=== PATIENT | male | born 1960 | race Caucasian/White ===

== ENCOUNTER 2023-03-20 10:53 | Emergency (ER) | payer BC, SELFPAY ==
[2023-03-20 10:56] VITALS: BP 163/66
--- NOTE | 2023-03-20 11:20 | EDRN ---
Dima Hernandez PA in to see pt at this time.
--- NOTE | 2023-03-20 11:20 | ED.GENMED ---
History of Present Illness
General
Chief Complaint: Musculo-Skeletal Complaint
Time Seen by Provider: 03/20/23 11:12
Travel History
Have you had any contact with someone who has COVID-19?: No
Do you have any symptoms of coronavirus? Fever > 100 degrees, chills, cough, shortness of breath, sore throat, loss of taste or smell, muscle aches, or headache?: No
History of Present Illness
History of Present Illness:
62-year-old male presents to the emergency department for evaluation of left foot injury. He dropped a steel table in the foot last night. He is able to bear weight with pain. Large amount of bruising and swelling to the midfoot. Denies any
distal paresthesias or open wounds
Review of Systems
Review of Systems
Allergies reviewed?: Yes
All Other Systems: ROS reviewed and negative except as documented in HPI and ROS
Phy Exam
Physical Exam
Physical Exam:
GEN: Well appearing, NAD, WDWN
HEENT: Oral mucosa moist, no scleral icterus
Cardiac: Regular rate
Lung: No respiratory distress, no tachypnea
MSK: Diffuse ecchymosis and swelling to the left midfoot focal to the first metatarsal, no open wounds
Skin: Good color, no pallor or jaundice, no rashes
Neuro: AO x3, moves all extremities freely
Psych: Calm, cooperative
Course
Orders/Labs/Results
Orders:
Orders
03/20/23 10:55
Foot, Left 3 View [CR Foot - Left Min 3 Views] Urgent
Comment:
Reason For Exam: pain
03/20/23 11:20
Ortho Boot Left- Treatment ONCE
Short or tall?: Short
Vital Signs
Initial and Last Documented VS:
Initial Vital Signs
Temp Pulse Resp BP Pulse Ox
98.7 F 58 18 163/66 97
03/20/23 10:56 03/20/23 10:56 03/20/23 10:56 03/20/23 10:56 03/20/23 10:56
Last Documented Vital Signs
Temp Pulse Resp BP Pulse Ox
98.7 F 58 16 160/65 99
03/20/23 10:56 03/20/23 11:25 03/20/23 11:25 03/20/23 11:25 03/20/23 11:25
MDM/Problems Addressed
MDM/Problems Addressed:
X-rays of the left foot independently interpreted by me show a nondisplaced midshaft fracture of the left first metatarsal. Patient will be placed in an orthopedic boot, weightbearing as tolerated, outpatient orthopedic follow-up recommended
*Critical Care Note
Total Time (30-74mins, 75-104mins- exclusive of procedures): Not Applicable
ED Attending Note
-
Portions of this chart may have been created with voice recognition software.� Occasional wrong word or��sound alike� substitutions may have occurred due to the inherent limitations of voice recognition software.
Discharge Plan
Departure
Patient Disposition: Home (Routine Discharge)
Date of Disposition: 03/20/23
Time of Disposition: 11:22
Patient with high blood pressure during this ER visit?: Yes
Discharge Problem:
Closed nondisplaced fracture of first left metatarsal bone
Instructions: Foot Fracture (DC)
Referrals:
Fantasma Scruggs DPM [Active] -
Activity Restrictions/Additional Instructions:
Elevate and ice often
Interventions
Interventions:
*Risk Screen - Suicide Last Done: 03/20/23 10:56
*General Assessment Last Done: 03/20/23 10:56
*Neglect/Abuse Screening Last Done: 03/20/23 10:56
ED- Fall Risk Assessment Last Done: 03/20/23 11:37
*ED COVID-19 Vaccine History Last Done: 03/20/23 10:56
*Nursing Disposition Last Done: 03/20/23 11:38
ED-Musculoskeletal Assessment Last Done: 03/20/23 11:23
Discharge Date and Time
Discharge Date/Time: 03/20/23 11:39
[2023-03-20 11:23] VITALS: BMI 27.5
[2023-03-20 11:25] VITALS: BP 160/65
== END 2023-03-20 11:39 | disposition home or self-care (01) ==
LOC: EMR 10:53
PROVIDERS: EMERGENCY PHYSICIAN Emergency Medicine; FAMILY PHYSICIAN Nurse Practitioner
DX: S92.315A Nondisplaced fracture of first metatarsal bone, left foot, initial encounter for closed fracture (principal); W22.8XXA Striking against or struck by other objects, initial encounter
CPT/HCPCS: 99283; 73630

== ENCOUNTER → 2023-05-04 07:25 | Outpatient (REF) | payer BC, SELFPAY | LOC: HWRAD 07:25 | PROVIDERS: ATTENDING PHYSICIAN Physician Assistant Surgical; FAMILY PHYSICIAN Nurse Practitioner | DX: M79.662 Pain in left lower leg (principal) | CPT/HCPCS: 73700 ==

== ENCOUNTER 2024-01-24 09:55 | Day surgery (SDC) | payer BC, SELFPAY ==
[2024-01-24] VITALS (17 sets, daily range): BP systolic 107–155; BP diastolic 55–94
[2024-01-24 10:33] LABS: Hematocrit 40.8 % (39.0-52.0); Hemoglobin 14.3 g/dL (13.0-18.0); Mean Corpuscular Hgb 31.3 pg (27.0-31.0); Mean Corpuscular Volume 89.3 fL (80.0-94.0); Mean Platelet Volume 9.4 fL (7.4-10.4); Platelet Count 274 10^3/uL (130-400); Red Blood Cell Count 4.57 10^6/uL (4.70-6.10); Red Cell Dist. Width 12.5 % (11.5-14.5); White Blood Cell Count 8.7 10^3/uL (4.8-10.8)
[2024-01-24 10:47] LABS: ALT (SGPT) 34 U/L (0-50); AST (SGOT) 32 U/L (17-59); Albumin 4.4 g/dl (3.5-5.0); Alkaline Phosphatase 81 U/L (38-126); Blood Urea Nitrogen 12 mg/dl (9-20); Calcium 9.3 mg/dl (8.4-10.2); Carbon Dioxide 28 mmol/L (22-30); Chloride 104 mmol/L (98-107); Glucose 194 mg/dl (70-99); Potassium 4.8 mmol/L (3.5-5.1); Sodium 141 mmol/L (135-145); Total Bilirubin 0.9 mg/dl (0.2-1.3); Total Protein 7.2 g/dl (6.3-8.2); eGFR > 60.00
--- NOTE | 2024-01-24 12:31 | ITS.CL.CATH ---
Blending Tank Tender - Catheterization
Cardiac Catheterization
Procedure Report:
LEFT HEART CATHETERIZATION
Date of Procedure: January 24, 2024
Referring: Stan Kirkland
PROCEDURES:
1. Left heart catheterization, coronary angiogram.
2. Ultrasound-guided access
INDICATION: Twin is a 63-year-old gentleman with past medical history of hypertension, hyperlipidemia, type 2 diabetes mellitus, on insulin, prior inferior DE with RCA PCI with subsequent ischemic cardiomyopathy, recovered on most recent
echocardiogram with LVEF of 53% in 2022 who is being referred for a left heart catheterization for ongoing exertional chest discomfort despite optimization of medical therapy to rule out obstructive CAD.
ACCESS: Right radial artery, 6 Fr sheath, under ultrasound guidance
HEMODYNAMICS : (mmHg)
AO (s/d) : 126/50
LV (s/d) : 126/10
LVEDP : 25
CORONARY FINDINGS
DOMINANCE: Right
LEFT MAIN: The left main artery is a large-caliber vessel which gives rise to the left anterior descending artery and the left circumflex artery. There is minimal luminal irregularities.
LEFT ANTERIOR DESCENDING: The left anterior descending artery is a large-caliber vessel which gives rise to 2 major diagonal branches as it courses to the anterior interventricular groove and wraps around the apex. There is a tubular up to 80%
stenosis in the proximal LAD with diffuse up to 70 to 80% stenosis in the mid to distal LAD just distal to the takeoff of the second diagonal branch. There are [id number] collaterals noted.
CIRCUMFLEX: The left circumflex artery is a diminutive vessel which gives off 1 small to medium caliber OM with mild to moderate diffuse atherosclerotic plaque.
RIGHT CORONARY ARTERY: The right coronary artery is a medium to large caliber, dominant vessel with 100% chronic total occlusion in the midportion with [id number] collaterals.
SEDATION: 30 minutes of procedural sedation was utilized. An independent medical doctor md was present to assist with and help manage the patient's level of consciousness and physiologic status.
RADIATION SUMMARY: Fluoro Time (min): 2.9, Dose (mGy): 414.45, DAP (Gy.cm2) : 25.89
Closure Device: Vascular band over right radial artery, 10 cc of air
CONCLUSIONS
1. Significant two-vessel coronary artery disease involving the LAD and dominant right coronary artery.
2. Elevated LVEDP at 25 mmHg[address]
RECOMM[address] surgery consult for consideration of coronary artery bypass grafting to the LAD and RPDA +/- RPL
2. Wean radial band per protocol.
3. Aggressive management of cardiovascular risk factors.
4. Full echocardiogram to assess biventricular function and rule out any significant valvular abnormalities given prior echo was more than 1 year ago.
5. Eventual referral for outpatient cardiac rehab.
Copy to: Stan Kirkland
Mahsa Bates MD, FACC, [facility]
[2024-01-24] MEDS: LASIX 20 MG IV (16:08)
== END 2024-01-24 17:56 | disposition home or self-care (01) ==
LOC: CATH 09:55
PROVIDERS: ATTENDING PHYSICIAN Internal Medicine Interventional Cardiology; CONSULT PHYSICIAN Thoracic Surgery (Cardiothoracic Vascular Surgery); FAMILY PHYSICIAN Nurse Practitioner; OTHER PHYSICIAN Internal Medicine Cardiovascular Disease
DX: I25.10 Atherosclerotic heart disease of native coronary artery without angina pectoris (principal); R07.89 Other chest pain; I25.5 Ischemic cardiomyopathy; I10 Essential (primary) hypertension; E78.5 Hyperlipidemia, unspecified; E11.9 Type 2 diabetes mellitus without complications; I25.2 Old myocardial infarction; Z95.5 Presence of coronary angioplasty implant and graft; Z79.4 Long term (current) use of insulin; Z79.82 Long term (current) use of aspirin
CPT/HCPCS: 80053; 85027; 93306; 93458; C1894; Q9967

== ENCOUNTER 2024-02-09 19:46 | Inpatient (IN) | payer BC, SELFPAY ==
[2024-02-09] VITALS (11 sets, daily range): BP systolic 119–162; BP diastolic 42–108; BMI 27.3
[2024-02-09 13:42] LABS: % Basophils 0.5 % (0-2); % Eosinophils 1.5 % (0-6); % Immature Granulocytes 0.7 % (0-0.5); % Lymphocytes 10.1 % (20.5-51.1); % Neutrophils 77.2 % (42.2-75.2); Absolute Basophils 0.1 10^3/uL (0-0.2); Absolute Eosinophils 0.2 10^3/uL (0-0.7); Absolute Immature Granulocytes 0.1 10^3/uL (0-0.05); Absolute Lymphocytes 1.3 10^3/uL (1.2-3.4); Absolute Monocytes 1.3 10^3/uL (0.1-0.6); Absolute Neutrophils 9.9 10^3/uL (1.4-6.5); Hematocrit 41.5 % (39.0-52.0); Hemoglobin 13.8 g/dL (13.0-18.0); Mean Corp Hgb Conc. 33.3 g/dL (33.0-37.0); Mean Corpuscular Hgb 30.7 pg (27.0-31.0); Mean Corpuscular Volume 92.4 fL (80.0-94.0); Mean Platelet Volume 9.6 fL (7.4-10.4); Nucleated Red Blood Cells % 0 % (-); Platelet Count 332 10^3/uL (130-400); Red Blood Cell Count 4.49 10^6/uL (4.70-6.10); Red Cell Dist. Width 12.3 % (11.5-14.5); White Blood Cell Count 12.9 10^3/uL (4.8-10.8)
[2024-02-09 13:55] LABS: ALT (SGPT) 28 U/L (0-50); AST (SGOT) 26 U/L (17-59); Albumin 3.9 g/dl (3.5-5.0); Alkaline Phosphatase 129 U/L (38-126); Blood Urea Nitrogen 12 mg/dl (9-20); Calcium 8.7 mg/dl (8.4-10.2); Carbon Dioxide 30 mmol/L (22-30); Chloride 99 mmol/L (98-107); Glucose 177 mg/dl (70-99); Potassium 4.2 mmol/L (3.5-5.1); Sodium 137 mmol/L (135-145); Total Bilirubin 0.9 mg/dl (0.2-1.3); Total Protein 6.9 g/dl (6.3-8.2); eGFR > 60.00
[2024-02-09 14:09] LABS: Troponin I 0.102 ng/ml
[2024-02-09 14:39] LABS: COVID-19 Antigen Negative (Negative)
--- NOTE | 2024-02-09 15:22 | ED.GENMED ---
History of Present Illness
General
Chief Complaint: Cold/Flu/URI Symptoms
Source: patient and spouse
Time Seen by Provider: 02/09/24 15:07
History of Present Illness
History of Present Illness:
63-year-old male with past medical history of coronary artery disease, hypertension, hyperlipidemia, insulin-dependent diabetes presenting to the emergency department for evaluation of a persistent cough that started a little over 1 week ago
initially accompanied with some nasal congestion which is now resolved and accompanied with continued fatigue. Patient went to his primary care provider on Monday where he was tested for COVID and flu which were both negative and was told he
likely had a viral infection. Patient notes persistent cough which is why he presented to the ER today. Earlier today patient did have a little bit of chest discomfort but equates this with getting upsetting news in the mail. He states that the
symptoms only lasted for a few minutes and then resolved. He denies any exertional dyspnea, orthopnea, lower extremity edema, hemoptysis, pleurisy, fevers, chills, rigors, abdominal pain, nausea, vomiting. Of note, patient is scheduled to undergo
CABG this coming February 18. He reports good compliance with medication and notes that he did take his aspirin this morning.
Past History
Past History
ED Past Medical History: CAD, HTN, Hypercholesterolemia, IDDM and [place]
ED Past Surgical History: Appendectomy and Orthopedic
Social History
Tobacco: Non-smoker
Alcohol: Occasional
Drug: None
Personal:
Living: with family
Review of Systems
Review of Systems
All Other Systems: ROS reviewed and negative except as documented in HPI and ROS
Phy Exam
Physical Exam
Physical Exam:
GENERAL: Alert , in no apparent distress, Intermittent nonproductive cough noted
HEAD: NCAT
EYE: clear conjunctiva
NECK: Supple
ENT: o/p clr, mmm.
CARDIAC: Regular rate and rhythm, faint systolic murmur most pronounced at the second left intercostal space.
LUNGS: Slightly diminished lung sound left base, no acute respiratory distress, no wheezes/rales/rhonchi
ABDOMEN: Soft, without focal tenderness, no r/g, no cvat
NEUROLOGICAL: Alert and oriented
SKIN: Warm and dry, skin intact.
MUSCULOSKELETAL: No edema, well perfused.
PSYCH: Normal and appropriate interaction.
Scores
Heart Failure Risk
Heart Failure Risk Score: Not Applicable
Heart Score for Chest Pain Patients
STEMI patient?: Not applicable
Withdrawal Assessment of Alcohol
Withdrawal Assessment Completed?: Not applicable
Course
Orders/Labs/Results
Orders:
Orders
02/09/24 13:12
Electrocardiogram (*1) Urgent
Reason for Study: Chest Pain
EKG- Treatment ONCE
02/09/24 13:13
Chest [CR Chest - 2 Views ] Urgent
Comment:
Reason For Exam: cough, sob
02/09/24 13:30
COVID-19 Antigen Urgent
Source: Nasal Swab
Complete Blood Count/With Diff Urgent
Comprehensive Metabolic Panel Urgent
Troponin I Urgent
Influenza A+B Rapid Molecular Urgent
LORELEI Source: Nasal Swab
Specimen Description:
02/09/24 15:20
CT Chest Pe Study Urgent
Comment:
Reason For Exam: elevated trop, cough, known CAD
Aspirin Chewable [Low Strength Aspirin] 243 mg PO NOW STA
02/09/24 15:26
NT-proBNP Urgent
Troponin I Urgent
02/09/24 17:11
CefTRIAXone [Rocephin] 1,000 mg IV NOW STA
Doxycycline [Vibramycin] 100 mg PO NOW STA
Abnormal Lab Results
02/09/24 02/09/24
13:30 15:26
WBC 12.9 H 10^3/uL
(4.8-10.8)
RBC 4.49 L 10^6/uL
(4.70-6.10)
Abs Immat Gran (auto) 0.1 H 10^3/uL
(0-0.05)
Absolute Neuts (auto) 9.9 H 10^3/uL
(1.4-6.5)
Absolute Monos (auto) 1.3 H 10^3/uL
(0.1-0.6)
Immature Gran % 0.7 H %
(0-0.5)
Neutrophils % 77.2 H %
(42.2-75.2)
Lymphocytes % 10.1 L %
(20.5-51.1)
Monocytes % 10.0 H %
(1.7-9.3)
Glucose 177 H mg/dl
(70-99)
Alkaline Phosphatase 129 H U/L
(38-126)
Troponin I 0.102 H* ng/ml 0.161 H* D ng/ml
02/09/24 13:30
02/09/24 13:30
Vital Signs
Initial and Last Documented VS:
Initial Vital Signs
Temp Pulse Resp Pulse Ox
98.1 F 61 18 97
02/09/24 13:09 02/09/24 13:09 02/09/24 13:09 02/09/24 13:09
Last Documented Vital Signs
Temp Pulse Resp BP Pulse Ox
98.1 F 80 20 155/64 97
02/09/24 13:09 02/09/24 17:15 02/09/24 17:15 02/09/24 17:07 02/09/24 17:15
MDM/Problems Addressed
Differential Diagnosis Includes:
covid, flu, pneumonia, PE, CHF, viral syndrome, myocarditis
MDM/Problems Addressed:
63-year-old male presenting to the ER for evaluation of a persistent cough that has been ongoing for a little over 1 week. Today had a little bit of chest discomfort but lasted a few minutes but states this is now fully resolved. Patient's
who is here with him also noted she had some viral-like symptoms but her symptoms started after the patient and she is now fully resolved. Patient had labs, COVID, flu and chest x-ray ordered from triage. Labs reveal a leukocytosis of near 13,000,
no bandemia. Chemistry did reveal an elevated troponin at 0.102. COVID and flu testing was negative and chest x-ray shows a questionable right sided infiltrate/atelectasis. EKG is a normal sinus rhythm at 84 bpm. There is lateral ST changes.
Chronic conditions affecting care: HTN and CAD
Acute Exacerbation and/or Progression of Chronic Illness: HTN and CAD
*Radiology
Radiology exam reviewed: radiology read reviewed
*Pulse Oximetry
Patient hypoxic: no
*EKG
Heart Rate: 84
Rate: normal
Rhythm: sinus
Ischemia: other (lateral ST changes, no STEMI)
*Web Graphic Designer Interpretation
Rate: normal
Rhythm: sinus
*Critical Care Note
Total Time (30-74mins, 75-104mins- exclusive of procedures): Not Applicable
Data Reviewed
Review of Other/Old Records Reveals: Records
Source: patient and records
Patient Management
Discussion with other providers: Hospitalist and Sandwich Maker
Escalation/DeEscalation of care consider admission/obs:
Patient CT of the chest shows a right multifocal pneumonia. There is no evidence for pulmonary embolism. I suspect patient's likely infectious process caused a myocarditis as the cause of the patient's troponin elevation. Will treat for
community-acquired pneumonia with Rocephin and doxycycline. Will defer any anticoagulation to hospitalist and cardiology team. I did notified the hospitalist who accepts patient for continued evaluation and treatment and cardiology will see the
patient in consultation.
ED Attending Note
-
Portions of this chart may have been created with voice recognition software.� Occasional wrong word or��sound alike� substitutions may have occurred due to the inherent limitations of voice recognition software.
Discharge Plan
Departure
Patient Disposition: Admit
Date of Disposition: 02/09/24
Time of Disposition: 17:12
Presentation/result/management discussed w/ accepting MD/DO: Hospitalist
Discharge Problem:
Pneumonia, Elevated troponin
Prescriptions:
No Action
folic acid 400 mcg Tablet
0.4 mg PO DAILY
lisinopril 5 mg Tablet
5 mg PO DAILY
metoprolol succinate 25 mg Tablet Extended Release 24 Hr
25 mg PO DAILY
ezetimibe 10 mg Tablet
10 mg PO DAILY
rosuvastatin 40 mg Tablet
40 mg PO DAILY
cholecalciferol (vitamin D3) [Vitamin D3] 50 mcg (2,000 unit) Tablet
50 mcg PO DAILY
aspirin [aspirin] 81 mg tablet,delayed release (DR/EC)
81 mg PO DAILY Qty: 1 0RF
furosemide [Lasix] 20 mg tablet
20 mg PO DAILY Qty: 90 3RF
isosorbide mononitrate 30 mg Tablet Extended Release 24 Hr
30 mg PO BID Qty: 0 0RF
nitroglycerin 0.4 mg tablet, sublingual
0.4 mg sublingual [id number] PRN (Reason: chest pain) Qty: 25 2RF
Patient's Own Insulin Pump
1 sliding scale dose SC AC
Patient Comments:
02/09/24: uses insulin aspart
Referrals:
Sue Burkett CRNP [Family Provider] -
Interventions
Interventions:
*Risk Screen - Suicide Last Done: 02/09/24 13:09
*General Assessment Last Done: 02/09/24 15:31
*Neglect/Abuse Screening Last Done: 02/09/24 15:31
ED- Fall Risk Assessment Last Done: 02/09/24 15:31
ED- Pulmonary Assessment Last Done: 02/09/24 15:31
Discharge Date and Time
Print Language: FAROESE
[2024-02-09] MEDS: LOW STRENGTH ASPIRIN 243 MG PO (15:29)
[2024-02-09 15:58] LABS: NT-proBNP 467 pg/ml; Troponin I 0.161 ng/ml
[2024-02-09] MEDS: ROCEPHIN 1000 MG IV (17:15)
[2024-02-09] MEDS: VIBRAMYCIN 100 MG PO (17:15)
--- NOTE | 2024-02-09 17:32 | HPS.HSE ---
Family Physician
-
Family Physician: AVINASH Sue
Chief Complaint
-
cp 1 min center of chest , cough x 2 weeks
History of Present Illness
63-year-old male complaining of persistent cough and sob Starting approximately 2 weeks ago including rhinorrhea and occasional headaches. Today while sitting in the chair at 10 AM he had a 1 minute episode of midsternal chest pain radiating to
left side with no radiation to neck or arm. He has no current active chest pain pressure shortness of breath SOLER, palpitations, Orthopnea, SOLER, hemoptysis, nausea, vomiting, diarrhea, urinary symptoms
He reports he was seen by his PCP on Monday 3 days ago was tested for COVID and flu both of which were negative and was told he had a viral infection. He notes persistent cough with some chest discomfort when getting up to obtain his mail. He
states the symptoms only lasted for several minutes then resolved. He Had a cardiac cath on 01/24/24 showing significant two-vessel CAD involving the LAD 80% proximal and 7080% in the mid to distal LAD with [id number] collateral circulation
noted and dominant right coronary artery 100% occlusion in the midportion left to right collaterals present history of prior stent placement 20 years ago
He is scheduled for CABG surgery on February 19, 2024. He has past medical history of CAD/PR, HTN, HLD, IDDM age 27
Medical History
Past Medical History
Past Medical History: Reports Other
Additional Past Medical History:
CAD/PR rCA 22 years ago
HTN
HLD
IDDM age 27 has own pump and cgm device
former smoker
Past Surgical History: Reports Other
Additional Past Surgical History:
Lumbar discectomy, appendectomy, odilon left leg
Social History
Tobacco: Former Smoker (25 year 1ppd stopped 22 years ago )
Alcohol: Occasional (1 mixed drink 2-3 times a week )
Drug: None
Personal:
Living: With Family
Employment: Retired
Family History
Family History: Other (Daughter age 5 iddm son iddm age 24)
Allergies / Home Medications
Allergies reflects when Allergies were last updated in [facility].
Home Medications with original date entered in [facility]
Allergy/Medication List:
Allergies
Allergy/AdvReac Type Severity Reaction Status Date / Time
No Known Allergies Allergy Unverified 02/09/24 13:09
Home Medications
aspirin 81 mg tablet,delayed release 81 mg PO DAILY #1 tab 01/24/24
cholecalciferol (vitamin D3) 50 mcg (2,000 unit) tablet (Vitamin D3) 50 mcg PO DAILY 01/24/24
ezetimibe 10 mg tablet 10 mg PO DAILY 01/24/24
folic acid 400 mcg tablet 0.4 mg PO DAILY 01/24/24
furosemide 20 mg tablet (Lasix) 20 mg PO DAILY #90 tabs 01/24/24
isosorbide mononitrate 30 mg tablet,extended release 24 hr 30 mg PO BID #0 tabs 01/24/24
lisinopril 5 mg tablet 5 mg PO DAILY 01/24/24
metoprolol succinate 25 mg tablet,extended release 24 hr 25 mg PO DAILY 01/24/24
nitroglycerin 0.4 mg sublingual tablet 0.4 mg sublingual [id number] PRN chest pain #25 tabs 01/24/24
rosuvastatin 40 mg tablet 40 mg PO DAILY 01/24/24
Patient's Own Insulin Pump 1 sliding scale dose SC AC 02/09/24
Review of Systems
-
History Source: Patient and Family ( )
A 12 point ROS was completed and negative except as noted: Yes
Constitutional: Denies Fever, Fatigue or Chills
EENT: Reports Runny Nose; Denies Sore Throat
Respiratory: Reports Cough and Trouble Breathing
Cardiac: Reports Chest Pain (midsternal); Denies Diaphoresis, Palpitations or Syncope
Abdomen/GI: Denies Abdominal Pain, Nausea, Vomiting, Diarrhea, Constipated, Bloody Stools or Black Stools
: Denies Dysuria, Frequency, Flank Pain, Incontinence, Difficulty Voiding, Urgency or Bleeding
Musculoskeletal: Denies Joint Pain or Edema
Skin: Denies Itching or Rash
Neurological: Denies Dizzy, Headache or Weakness
Endocrine: Reports No Symptoms
Hematologic/Lymphatic: Reports No Symptoms
Psych: Reports Calm
Physical Exam
Vital Signs
Vital Signs
Temp Pulse Resp BP Pulse Ox
98.1 F 80 20 155/64 97
02/09/24 13:09 02/09/24 17:15 02/09/24 17:15 02/09/24 17:07 02/09/24 17:15
Physical Exam
General: Comfortable and Conversant; No Pain, Fever or Chills
HEENT: NormoCephalic, Anicteric, Moist mucous membranes, PERRLA, Bertsch-[place] Conjunctivae, No Ptosis and Neck Nontender
Respiratory: Clear; No Wheezes, Rales or Rhonchi
Cardiac: S1/S2 and Regular Rhythm; No Murmur, Rub, Gallop or Peripheral Edema
Breast: Deferred by me
GI: Soft, Non Tender, Non Distended, Normal Bowel Sounds and No Hepatosplenomegaly
Genito-urinary: Deferred by me
Musculoskeletal: No Clubbing, No Cyanosis and No Edema
Skin: Warm and Dry; No Rash or Jaundice
Neuro: AO x 3, Cranial Nerves Intact and No Sensory Deficits; No Slurred Speech, Facial Droop, Tremors or Sedated
Psych: Calm
Laboratory Results
-
02/09/24 13:30
02/09/24 13:30
Laboratory Results
Total Bilirubin 0.9 mg/dl (0.2-1.3) 02/09/24 13:30
AST 26 U/L (17-59) 02/09/24 13:30
ALT 28 U/L (0-50) 02/09/24 13:30
Alkaline Phosphatase 129 U/L (38-126) H 02/09/24 13:30
Troponin I 0.161 ng/ml H* D 02/09/24 15:26
Data Reviewed
-
Diagnostic Radiology: Report Reviewed by me
CT Scan: Report Reviewed by me
Lab Data: Labs Reviewed by me
Impression/Plan
-
Impression/plan:
Admit to IVU
#Right lower lobe bronchopneumonia/Multifocal
WBC 12.9 with left shift, HR 75, temp 98.9 F, 135/58
96% RA
COVID-negative, influenza negative
-Check sputum culture
-IV Rocephin, doxycycline 100 mg twice daily
- follow cbc, bmp
CXR: Vague opacity within the right lower lobe most suggestive of bronchopneumonia or subsegmental atelectasis no significant pleural effusion
CT PE study:
1. No evidence of central or segmental pulmonary embolism.
2. There is a consolidation with air bronchograms in the right lower lobe as well as additional scattered nodular consolidations with surrounding groundglass opacities which are favored to represent multifocal pneumonia.
3. There is mild prominence of the mediastinal and hilar lymph nodes which is likely reactive in nature.
#NSTEMI
#CAD/PR Hx
Troponin 0.102> troponin 0.161 will trend
-Aspirin 324 mg given in ER, continue aspirin 81 mg daily
- cont imdur 30 mg daily
- nitro s/l prn cp
-Iv Heparin Gtt
-Patient due for CABG x triple-vessel 02/19/2024
-Consult [facility] cardiology Dr. TJ Bell aware
EKG T wave inversions lateral leads when compared to May 2005
Cardiac cath on 01/24/24 showing significant two-vessel CAD involving the LAD 80% proximal and 70-80% in the mid to distal LAD with [id number] collateral circulation noted
Left circumflex artery diminutive vessel which gives off 1 small to medium caliber OM with mild to moderate diffuse atherosclerotic plaque
Dominant Right Coronary Artery 100% occlusion in the midportion left to right collaterals present
history of prior stent placement 20 years ago
#Dm2
accuchecks with ssi, check [id number]
- cont pt's own insulin pump
#HTN- benign
BP 135/58
-Continue lisinopril 5 mg daily, metoprolol succinate 25 mg daily
#HLD
-Check lipid profile
-Continue Zetia 10 mg daily, Crestor 40 mg daily
#Former smoker
25 year 1 ppd stopped 22 years ago
Dvt proph
-sq heparin
full code
--- NOTE | 2024-02-09 19:11 | W.PN.UPDATE ---
Update Note
Progress Note Update
This is an addendum to the H&P written by Keyana Mendoza on 02/09/2024. Patient seen and examined independently with MOBILE UI DESIGNER.
63-year-old male past medical history of CAD, hypertension, hyperlipidemia, diabetes, presenting with persistent cough for the past week some nasal congestion continued fatigue. He had some chest discomfort earlier today now resolved. Denies
shortness of breath, edema, fevers chills, abdominal pain nausea or vomiting.
Patient recently had cardiac catheterization and was found to have two-vessel disease involving LAD and dominant right coronary artery, plan to undergo CABG this upcoming February 18.
EKG shows sinus rhythm with occasional PVCs, T wave inversions in lateral leads. Troponin of 0.1 and has increased to 0.16. COVID and flu are negative. CT chest shows multifocal pneumonia.
Patient likely with NSTEMI. Continue aspirin, heparin drip. Trend troponins. Cardiology consulted.
Ceftriaxone/doxycycline for pneumonia.
Continue insulin pump.
[2024-02-09] MEDS: HEPARIN 25000 UNITS/250 ML IV (19:23)
[2024-02-09 19:33] LABS: Troponin I 0.145 ng/ml
[2024-02-09 19:39] LABS: Hematocrit 38.6 % (39.0-52.0); Hemoglobin 12.8 g/dL (13.0-18.0); Mean Corp Hgb Conc. 33.2 g/dL (33.0-37.0); Mean Corpuscular Hgb 30.5 pg (27.0-31.0); Mean Corpuscular Volume 91.9 fL (80.0-94.0); Mean Platelet Volume 9.3 fL (7.4-10.4); Platelet Count 311 10^3/uL (130-400); Red Cell Dist. Width 12.2 % (11.5-14.5); White Blood Cell Count 12.3 10^3/uL (4.8-10.8)
[2024-02-09 19:49] LABS: APTT 36.5 Sec (23.4-35.0)
--- NOTE | 2024-02-09 19:55 | CON.CAR ---
Consultation
Consultation Request
Date/Time Consultation Requested: 02/09/2024 at 5 PM
Date/Time Consultation Performed: 02/09/2024 at 8:45 PM
Requesting Provider: AVINASH Yao
Performing Provider: Twin Bell MD
Reason for Consultation: CAD with elevated troponin and EKG changes
Medical History
-
Chief Complaint: Pneumonia, shortness of breath, cough, chest tightness this morning
History of Present Illness:
Mr. Goel is a pleasant 63-year-old man with an inferior myocardial infarction in 2001 who recently underwent cardiac catheterization for symptoms of persistent chest discomfort following a stress test, and found to have severe LAD disease with a
chronic total occlusion in the mid right coronary artery fed by [id number] collaterals and with mild LV dysfunction related to his remote myocardial infarction. He is scheduled for coronary artery bypass surgery. He had not been getting much
chest discomfort on medical management pending surgery. Over the last week or 2 he developed symptoms of respiratory infection, was recently seen as an outpatient, had chest discomfort this morning and was advised to go to the emergency department
where he is now admitted. His peak troponin is 0.161, and his EKG is largely unchanged with predominantly lateral T wave inversions and an old inferoposterior myocardial infarction. Currently he is without chest discomfort or marked dyspnea he is
coughing. His is at the bedside.
Past Medical History
Past Medical History: CAD (Acute inferior myocardial infarction November 2001, bare-metal stent of the mid right coronary, 50% proximal LAD EF 45-50% thereafter), GERD, HTN, Hypercholesterolemia, IDDM (Type I diabetic for over 20 years, now with
insulin pump) and Other (History of COVID)
Past Surgical History: Appendectomy and Orthopedic (Babar in the left tibia, back surgery x 2)
Social History
Tobacco: Former Smoker (Quit 2001)
Alcohol: None
Drug: None
Personal:
Living: With Family
Employment: Retired (Worked for [employer] and the [employer])
Family History
Family History: Reviewed & Not Pertinent
Allergies / Home Medications
Allergy/AdvReac Type Severity Reaction Status Date / Time
No Known Allergies Allergy Unverified 02/09/24 13:09
�Medication �Instructions �Recorded �Confirmed �Type
aspirin 81 mg tablet,delayed 81 mg PO DAILY #1 tab 01/24/24 02/09/24 Rx
release
cholecalciferol (vitamin D3) 50 50 mcg PO DAILY 01/24/24 02/09/24 History
mcg (2,000 unit) tablet (Vitamin
D3)
ezetimibe 10 mg tablet 10 mg PO DAILY 01/24/24 02/09/24 History
folic acid 400 mcg tablet 0.4 mg PO DAILY 01/24/24 02/09/24 History
furosemide 20 mg tablet (Lasix) 20 mg PO DAILY #90 tabs 01/24/24 02/09/24 Rx
isosorbide mononitrate 30 mg 30 mg PO BID #0 tabs 01/24/24 02/09/24 Rx
tablet,extended release 24 hr
lisinopril 5 mg tablet 5 mg PO DAILY 01/24/24 02/09/24 History
metoprolol succinate 25 mg 25 mg PO DAILY 01/24/24 02/09/24 History
tablet,extended release 24 hr
nitroglycerin 0.4 mg sublingual 0.4 mg sublingual [id number] PRN 01/24/24 02/09/24 Rx
tablet chest pain #25 tabs
rosuvastatin 40 mg tablet 40 mg PO DAILY 01/24/24 02/09/24 History
Patient's Own Insulin Pump 1 sliding scale dose SC AC 02/09/24 02/09/24 History
Review of Systems
-
All other systems: Negative unless noted
Physical Exam
Vital Signs
Temp Pulse Resp BP Pulse Ox
37.2 C 78 20 162/65 95
02/09/24 18:00 02/09/24 19:30 02/09/24 19:30 02/09/24 19:18 02/09/24 19:30
Lab Results
02/09/24 19:27
02/09/24 13:30
Troponin I 0.145 ng/ml H* 02/09/24 19:00
Urv-R-Tcianislmwe Pept 467 pg/ml 02/09/24 15:26
Physical Exam
General: No Apparent Distress
HEENT: Normocephalic
Respiratory: Crackles (Bilaterally in bases right greater than left), Rhonchi and Non Labored Respirations
Cardiac: S1/S2, Regular Rhythm, Murmur (Soft systolic murmur at base), JVD (Normal) and Carotid Pulses (Normal)
GI: Soft, Non Tender and Normal Bowel Sounds
Musculoskeletal: No Cyanosis and No Edema
Skin: Warm and Dry
Neuro: AO x 3
Psych: Calm
Impression / Plan
-
Impression:
Right lower lobe pneumonia
CAD, sequential proximal, mid and distal LAD stenosis, occluded mid right coronary, scheduled for CABG February 19, 2024
Inferior myocardial infarction 2001 with bare-metal stent to mid right coronary artery
Type 1 diabetes
Hypertension
Hypercholesterolemia
Degenerative disc disease
Cardiac catheterization 01/24/2024 LVEDP 25, LV 126/10, luminal irregularities in the left main, tubular 80% stenosis proximal LAD, diffuse 70-80% mid to distal LAD, 2 diagonal branches, small circumflex with mild to moderate atherosclerosis in
small to medium OM1, RCA is 100% occluded and feeds via left to right collaterals, no V gram
Echocardiogram 01/24/2024, mildly dilated left ventricle, low normal systolic function, thin akinetic inferior wall, inferolateral hypokinesis, EF is 50-55%, normal RV, normal atria, trace MR, normal aortic valve, could not determine pulmonary
artery systolic pressure
Plan:
Despite his pneumonia and elevated troponin he looks reasonably stable and I suspect that he is troponin is a non-ACS related myocardial injury from increased demand in the setting of known occlusion of his right coronary artery fed by [id number]
collaterals, and possibly also related to myocardial demand in the LAD distribution with severe serial LAD stenoses.
Continue heparin for now but would consider discontinuation over the next day or 2 if EKG fails to evolve and if he remains comfortable.
Continue outpatient regimen as blood pressure and heart rate permit. Metoprolol ER is 25 mg a day and he is on isosorbide mononitrate 30 mg twice daily.
We will continue to follow.
CT surgery will need to determine the best timing for CABG, after optimization of pulmonary status and treatment of pneumonia.
We will continue to follow.
Data Reviewed
-
EKG: Tracing Personally Visualized and interpreted (Sinus rhythm, inferior/posterior myocardial infarction, incomplete right bundle branch block, lateral ischemia/subendocardial injury, changes are similar or perhaps improved compared to 12/21/2023)
Radiology: Image Personally Visualized and interpreted (Subtle pneumonia on right?)
CT Scan: Image Personally Visualized and interpreted (No pulmonary embolism, right lower lobe air bronchograms, multifocal pneumonia on the right, hilar nodes, likely reactive)
Labs: Labs Reviewed by me (White count is 12.3, hemoglobin is 12.8, left shift, BUN and creatinine are 12 and 0.7 normal AST and ALT, proBNP is 467, troponin is 0.161)
Old Records: Reviewed
[2024-02-09] MEDS: IMDUR (EXTENDED RELEASE) 30 MG PO (20:48)
--- NOTE | 2024-02-09 21:08 | PTCARENOTE ---
Received patient from ED. SR on the monitor, HR in the 70s. AxO3, Pt ambulated from stretcher to scale to bed. No chest pain at this time. Heparin running as per protocol, see MAR. Patient has own insulin pump in R abdomen. Oriented pt to room and
discussed plan of care, pt verbalizes understanding. No complaints from pt at this time, call kearns within reach.
[2024-02-09 22:03] LABS: Glucose - Point of Care 174 mg/dl (70-99)
[2024-02-09] MEDS: PATIENT'S OWN INSULIN PUMP SC (22:37)
[2024-02-10] VITALS (9 sets, daily range): BP systolic 139–150; BP diastolic 60–72; PULSE 63–84
[2024-02-10 02:50] LABS: % Basophils 0.6 % (0-2); % Eosinophils 1.6 % (0-6); % Immature Granulocytes 0.8 % (0-0.5); % Lymphocytes 13.4 % (20.5-51.1); % Monocytes 12.5 % (1.7-9.3); % Neutrophils 71.1 % (42.2-75.2); Absolute Basophils 0.1 10^3/uL (0-0.2); Absolute Eosinophils 0.2 10^3/uL (0-0.7); Absolute Immature Granulocytes 0.1 10^3/uL (0-0.05); Absolute Lymphocytes 1.5 10^3/uL (1.2-3.4); Absolute Monocytes 1.4 10^3/uL (0.1-0.6); Hematocrit 36.7 % (39.0-52.0); Hemoglobin 12.3 g/dL (13.0-18.0); Mean Corp Hgb Conc. 33.5 g/dL (33.0-37.0); Mean Corpuscular Hgb 30.4 pg (27.0-31.0); Mean Corpuscular Volume 90.8 fL (80.0-94.0); Mean Platelet Volume 9.2 fL (7.4-10.4); Nucleated Red Blood Cells % 0 % (-); Platelet Count 289 10^3/uL (130-400); Red Blood Cell Count 4.04 10^6/uL (4.70-6.10); Red Cell Dist. Width 12.1 % (11.5-14.5); White Blood Cell Count 11.3 10^3/uL (4.8-10.8)
[2024-02-10 02:58] LABS: APTT 54.9 Sec (23.4-35.0)
[2024-02-10 03:20] LABS: ALT (SGPT) 25 U/L (0-50); AST (SGOT) 24 U/L (17-59); Albumin 3.4 g/dl (3.5-5.0); Alkaline Phosphatase 110 U/L (38-126); Blood Urea Nitrogen 14 mg/dl (9-20); Calcium 8.3 mg/dl (8.4-10.2); Carbon Dioxide 25 mmol/L (22-30); Chloride 103 mmol/L (98-107); Estimated Creatinine Clearance > 125 ml/min; Glucose 106 mg/dl (70-99); HDL Cholesterol 30 mg/dl; LDL Cholesterol, Calculated 37 mg/dl; Potassium 3.9 mmol/L (3.5-5.1); Sodium 138 mmol/L (135-145); Total Bilirubin 0.6 mg/dl (0.2-1.3); Total Cholesterol 84 mg/dl (50-199); Total Protein 6.4 g/dl (6.3-8.2); Triglyceride 85 mg/dl (10-149); Very Low Density Lipoprotein 17 mg/dl (0-30); eGFR > 60.00
--- NOTE | 2024-02-10 06:37 | W.PN.HOSP.TC ---
Today's Communication/Plan
-
Order blood culture
Repeat flu screen
urine test
c/w IV Abx
c/w IV heparin,
f/w cardiology recommendaitons
Assessment / Plan
Assessment / Plan
Physical Exam
General: Comfortable and Conversant; No Pain, Fever or Chills
HEENT: Normocephalic, Anicteric, Moist mucous membranes, PERRLA, [place] Conjunctivae, No Ptosis and Neck Nontender
Respiratory: No Wheezes, Rales or Rhonchi
Cardiac: S1/S2
GI: Soft, Non Tender, Non Distended,
Genito-urinary: no hematuria
Musculoskeletal: No Clubbing, No Cyanosis and No Edema
Skin: Warm and Dry; No Rash or Jaundice
Neuro: AO x 3, Cranial Nerves Intact and No Sensory Deficits; No Slurred Speech, Facial Droop, Tremors or Sedated
Psych: Calm
#Right lower lobe bronchopneumonia/Multifocal
He is coughing.
COVID-negative.
Influenza not valid
Will repeat influenza screen, d/w microbiology
will go legionella and streptococcal Ag
Order blood culture
-c/w IV Rocephin, doxycycline 100 mg twice daily
#NSTEMI
#CAD/[place] Hx
troponin 0.12 up to 0.16 then down to 0.14
No chest pain , continue aspirin 81 mg daily
- cont Imdur 30 mg daily
- nitro s/l prn cp
-Iv Heparin Gtt
-Patient due for CABG x triple-vessel 02/19/2024
-Consult [facility] cardiology Dr. TJ Bell aware
Cardiac cath on 01/24/24 showing significant two-vessel CAD involving the LAD 80% proximal and 70-80% in the mid to distal LAD with [id number] collateral circulation noted
Left circumflex artery diminutive vessel which gives off 1 small to medium caliber OM with mild to moderate diffuse atherosclerotic plaque
Dominant Right Coronary Artery 100% occlusion in the midportion left to right collaterals present
history of prior stent placement 20 years ago
#Dm2
AccuCheck with ssi, check hgba1c
- cont pt's own insulin pump
#HTN- benign
BP 135/58
-Continue lisinopril 5 mg daily, metoprolol succinate 25 mg daily
#HLD
-Check lipid profile
-Continue Zetia 10 mg daily, Crestor 40 mg daily
#Former smoker
25 year 1 ppd stopped 22 years ago
Dvt proph
-sq heparin
full code
Total time spent to see the patient, examine the patient, review data and lab results, discuss the treatment plan with patient, nursing staff around 55 minutes
Anticipated Discharge: > 48 hours
Subjective/Interval History
-
Date of Service: February 10, 2024
No chest pain
No sob
Has cough
Objective Data
-
Labs:
Laboratory Results
02/09/24 02/10/24 02/10/24
19:27 01:30 02:41
WBC 12.3 H 11.3 H
Hgb 12.8 L 12.3 L
Hct 38.6 L 36.7 L
Plt Count 311 289
APTT 36.5 H Pending 54.9 H
Sodium 138
Potassium 3.9
Chloride 103
Carbon Dioxide 25
BUN 14
Creatinine 0.6 L
Glucose 106 H
Calcium 8.3 L
Total Bilirubin 0.6
AST 24
ALT 25
Alkaline Phosphatase 110
02/10/24
09:00
WBC
Hgb
Hct
Plt Count
APTT Pending
Sodium
Potassium
Chloride
Carbon Dioxide
BUN
Creatinine
Glucose
Calcium
Total Bilirubin
AST
ALT
Alkaline Phosphatase
Vital Signs:
Vital Signs
Temp Pulse Resp BP Pulse Ox
99 F 72 18 142/63 93
02/10/24 02:00 02/10/24 04:45 02/10/24 02:00 02/10/24 02:04 02/10/24 02:04
[2024-02-10 08:51] LABS: Glucose - Point of Care 96 mg/dl (70-99)
[2024-02-10] MEDS: ASPIR LOW (ENTERIC COATED) 81 MG PO (08:51)
[2024-02-10] MEDS: ZESTRIL 5 MG PO (08:51)
[2024-02-10] MEDS: ZETIA 10 MG PO (08:51)
[2024-02-10] MEDS: VIBRAMYCIN 100 MG PO ×2 (08:51→20:22)
[2024-02-10] MEDS: VITAMIN D3 (cholecalciferol) 50 MCG PO (08:51)
[2024-02-10] MEDS: TOPROL XL 25 MG PO (08:51)
[2024-02-10] MEDS: CRESTOR 40 MG PO (08:51)
[2024-02-10] MEDS: FOLVITE 0.4 MG PO (08:51)
[2024-02-10] MEDS: IMDUR (EXTENDED RELEASE) 30 MG PO ×2 (08:51→20:22)
[2024-02-10 09:06] LABS: Glycohemoglobin (HgbA1c) 7.2 % (4.0-5.6)
[2024-02-10] MEDS: PATIENT'S OWN INSULIN PUMP 6.5 UNITS SC (09:16)
[2024-02-10 09:39] LABS: APTT 65.6 Sec (23.4-35.0)
[2024-02-10] MEDS: HEPARIN 25000 UNITS/250 ML IV (11:58)
[2024-02-10 13:17] LABS: Glucose - Point of Care 138 mg/dl (70-99)
[2024-02-10] MEDS: PATIENT'S OWN INSULIN PUMP 10 UNITS SC ×2 (13:18→17:31)
[2024-02-10 17:08] LABS: APTT 64.2 Sec (23.4-35.0)
[2024-02-10 17:18] LABS: Glucose - Point of Care 143 mg/dl (70-99)
[2024-02-10] MEDS: ROCEPHIN 1000 MG IV (17:43)
--- NOTE | 2024-02-10 18:04 | PTCARENOTE ---
Assumed care of pt at aprox 1500. Pt at bedside. SB/SR on monitor. Pt with IV heparin infusing, increased to 1850 units per hour per PTT result. Pt with no c/o at this time.
[2024-02-10 20:55] LABS: Glucose - Point of Care 101 mg/dl (70-99)
[2024-02-10] MEDS: PATIENT'S OWN INSULIN PUMP SC (22:49)
[2024-02-10 23:21] LABS: APTT 66.2 Sec (23.4-35.0)
--- NOTE | 2024-02-11 00:06 | PTCARENOTE ---
Rec'd pt at change of shift. Pt AAO*3, pleasant, VSS, and pt in NSR on TELE monitor. Pt denies any pain or discomfort. Pt with mild non productive cough. Pt updated on plan of care and verbalizes understanding. Pt resting with call kearns in
reach. Plan of care ongoing.
[2024-02-11] MEDS: MELATONIN 5 MG PO ×2 (00:50→21:43)
[2024-02-11] MEDS: ANESTHETIC LOZENGE 1 LOZENGE PO (01:03)
[2024-02-11] MEDS: HEPARIN 25000 UNITS/250 ML IV ×2 (02:56→16:03)
[2024-02-11 03:13] VITALS: BP 138/56
[2024-02-11 05:00] LABS: % Basophils 0.7 % (0-2); % Eosinophils 2.8 % (0-6); % Immature Granulocytes 1.4 % (0-0.5); % Lymphocytes 16.3 % (20.5-51.1); % Monocytes 10.9 % (1.7-9.3); % Neutrophils 67.9 % (42.2-75.2); Absolute Basophils 0.1 10^3/uL (0-0.2); Absolute Eosinophils 0.3 10^3/uL (0-0.7); Absolute Immature Granulocytes 0.1 10^3/uL (0-0.05); Absolute Lymphocytes 1.6 10^3/uL (1.2-3.4); Absolute Monocytes 1.1 10^3/uL (0.1-0.6); Absolute Neutrophils 6.6 10^3/uL (1.4-6.5); Hematocrit 35.7 % (39.0-52.0); Hemoglobin 11.9 g/dL (13.0-18.0); Mean Corp Hgb Conc. 33.3 g/dL (33.0-37.0); Mean Corpuscular Hgb 30.4 pg (27.0-31.0); Mean Corpuscular Volume 91.1 fL (80.0-94.0); Mean Platelet Volume 9.3 fL (7.4-10.4); Nucleated Red Blood Cells % 0 % (-); Platelet Count 304 10^3/uL (130-400); Red Blood Cell Count 3.92 10^6/uL (4.70-6.10); Red Cell Dist. Width 12.1 % (11.5-14.5); White Blood Cell Count 9.7 10^3/uL (4.8-10.8)
[2024-02-11 05:12] LABS: APTT 75.6 Sec (23.4-35.0)
[2024-02-11 05:45] LABS: ALT (SGPT) 26 U/L (0-50); AST (SGOT) 29 U/L (17-59); Albumin 3.1 g/dl (3.5-5.0); Alkaline Phosphatase 112 U/L (38-126); Blood Urea Nitrogen 14 mg/dl (9-20); Calcium 8.2 mg/dl (8.4-10.2); Carbon Dioxide 25 mmol/L (22-30); Chloride 102 mmol/L (98-107); Estimated Creatinine Clearance 120 ml/min; Glucose 109 mg/dl (70-99); Potassium 3.8 mmol/L (3.5-5.1); Sodium 137 mmol/L (135-145); Total Bilirubin 0.4 mg/dl (0.2-1.3); eGFR > 60.00
--- NOTE | 2024-02-11 06:20 | W.PN.HOSP.TC ---
Today's Communication/Plan
-
c/w antibiotics
no fevers
on IV heparin gtt
Assessment / Plan
Assessment / Plan
Physical Exam
General: Comfortable and Conversant; No Pain, Fever or Chills
HEENT: Normocephalic, Anicteric, Moist mucous membranes, PERRLA, [place] Conjunctivae, No Ptosis and Neck Nontender
Respiratory: No Wheezes, Rales or Rhonchi
Cardiac: S1/S2
GI: Soft, Non Tender, Non Distended,
Genito-urinary: no hematuria
Musculoskeletal: No Clubbing, No Cyanosis and No Edema
Skin: Warm and Dry; No Rash or Jaundice
Neuro: AO x 3, Cranial Nerves Intact and No Sensory Deficits; No Slurred Speech, Facial Droop, Tremors or Sedated
Psych: Calm
#Right lower lobe bronchopneumonia/Multifocal
Less sob
Less cough
COVID-negative.
Influenza negative
Negative legionella and streptococcal Ag
blood culture 02/09 pending
-c/w IV Rocephin, doxycycline 100 mg twice daily
- No hypoxia, WBC down to normal.
#NSTEMI
#CAD/[place] Hx
troponin 0.12 up to 0.16 then down to 0.14
No chest pain , continue aspirin 81 mg daily
- cont Imdur 30 mg daily
- nitro s/l prn cp
-s/p Iv Heparin Gtt
-Patient due for CABG x triple-vessel 02/19/2024
-Consult [facility] cardiology Dr. TJ Bell aware
Cardiac cath on 01/24/24 showing significant two-vessel CAD involving the LAD 80% proximal and 70-80% in the mid to distal LAD with [id number] collateral circulation noted
Left circumflex artery diminutive vessel which gives off 1 small to medium caliber OM with mild to moderate diffuse atherosclerotic plaque
Dominant Right Coronary Artery 100% occlusion in the midportion left to right collaterals present
history of prior stent placement 20 years ago
#Dm2
AccuCheck with ssi,
7.2 hgba1c
- cont pt's own insulin pump. AM BG 129
#HTN- benign
BP 135/58
-Continue lisinopril 5 mg daily, metoprolol succinate 25 mg daily
#HLD
-Check lipid profile
-Continue Zetia 10 mg daily, Crestor 40 mg daily
#Former smoker
25 year 1 ppd stopped 22 years ago
Dvt proph
-sq heparin
full code
Total time spent to see the patient, examine the patient, review data and lab results, discuss the treatment plan with patient, nursing staff around 55 minutes
Anticipated Discharge: 24 - 48 hours
Subjective/Interval History
-
Date of Service: February 11, 2024
Less sob
+ cough
No chest pain
Objective Data
-
Labs:
Laboratory Results
02/10/24 02/11/24 02/11/24
23:02 04:49 12:00
WBC 9.7
Hgb 11.9 L
Hct 35.7 L
Plt Count 304
APTT 66.2 H 75.6 H Pending
Sodium 137
Potassium 3.8
Chloride 102
Carbon Dioxide 25
BUN 14
Creatinine 0.7
Glucose 109 H
Calcium 8.2 L
Total Bilirubin 0.4
AST 29
ALT 26
Alkaline Phosphatase 112
Vital Signs:
Vital Signs
Temp Pulse Resp BP Pulse Ox
98.4 F 74 18 138/56 90
02/11/24 03:12 02/11/24 04:00 02/11/24 03:12 02/11/24 03:13 02/11/24 03:13
I&O
02/09/24 02/10/24 02/11/24
06:59 06:59 06:59
Intake Total 720 / 720
Output Total 300 / 300
Balance 420 / 420
[2024-02-11 07:58] VITALS: BP 146/61
--- NOTE | 2024-02-11 08:21 | PTCARENOTE ---
Pt received from outgoing RN, pt aaox4, vss, ra, no c/o cp, in bed, on heparin gtt 1950units, plan for surgery on 02/19/24.
[2024-02-11 08:26] LABS: Glucose - Point of Care 129 mg/dl (70-99)
[2024-02-11] MEDS: IMDUR (EXTENDED RELEASE) 30 MG PO ×2 (08:52→19:41)
[2024-02-11] MEDS: FOLVITE 0.4 MG PO (08:52)
[2024-02-11] MEDS: TOPROL XL 25 MG PO (08:52)
[2024-02-11] MEDS: ASPIR LOW (ENTERIC COATED) 81 MG PO (08:52)
[2024-02-11] MEDS: ZETIA 10 MG PO (08:52)
[2024-02-11] MEDS: VIBRAMYCIN 100 MG PO ×2 (08:52→19:41)
[2024-02-11] MEDS: CRESTOR 40 MG PO (08:52)
[2024-02-11] MEDS: VITAMIN D3 (cholecalciferol) 50 MCG PO (08:52)
[2024-02-11] MEDS: ZESTRIL 5 MG PO (08:53)
[2024-02-11] MEDS: PATIENT'S OWN INSULIN PUMP 10 UNITS SC (09:00)
[2024-02-11 12:04] VITALS: BP 138/66
--- NOTE | 2024-02-11 12:10 | W.PN.CARDCBS ---
Today's Communication / Plan
-
Antibiotics as you are
Finish heparin morning of February 11
Breathing much better
Discussion with CT surgery team on February 11 timing of surgery currently scheduled for February 18 which I personally have no objection to but ultimately they will make the final decision
Troponins noted
Impression / Plan
-
Impression:
Right lower lobe pneumonia
CAD, sequential proximal, mid and distal LAD stenosis, occluded mid right coronary, scheduled for CABG February 19, 2024
Inferior myocardial infarction 2001 with bare-metal stent to mid right coronary artery
Type 1 diabetes
Hypertension
Hypercholesterolemia
Degenerative disc disease
Cardiac catheterization 01/24/2024 LVEDP 25, LV 126/10, luminal irregularities in the left main, tubular 80% stenosis proximal LAD, diffuse 70-80% mid to distal LAD, 2 diagonal branches, small circumflex with mild to moderate atherosclerosis in
small to medium OM1, RCA is 100% occluded and feeds via left to right collaterals, no V gram
Echocardiogram 01/24/2024, mildly dilated left ventricle, low normal systolic function, thin akinetic inferior wall, inferolateral hypokinesis, EF is 50-55%, normal RV, normal atria, trace MR, normal aortic valve, could not determine pulmonary
artery systolic pressure
Plan:
Despite his pneumonia and elevated troponin he looks reasonably stable and I suspect that he is troponin is a non-ACS related myocardial injury from increased demand in the setting of known occlusion of his right coronary artery fed by [id number]
collaterals, and possibly also related to myocardial demand in the LAD distribution with severe serial LAD stenoses. Would maintain heparin until the a.m. of February 11 and can stop after a total of 48 hours dosing.
Continue outpatient regimen as blood pressure and heart rate permit. Metoprolol ER is 25 mg a day and he is on isosorbide mononitrate 30 mg twice daily.
We will continue to follow.
CT surgery will need to determine the best timing for CABG, after optimization of pulmonary status and treatment of pneumonia. I had a preliminary discussion with CT surgery team today and we will reach out on Monday to coordinate details of care.
He is currently receiving ceftriaxone and feels much better.
We will continue to follow.
Progress Note - Structural Analyst
Subjective
Date of Service: February 11, 2024
Breathing much better
Objective
Labs:
02/11/24 04:49
02/11/24 04:49
Labs
Hgb 11.9 g/dL (13.0-18.0) L 02/11/24 04:49
Hct 35.7 % (39.0-52.0) L 02/11/24 04:49
Plt Count 304 10^3/uL (130-400) 02/11/24 04:49
APTT 75.6 Sec (23.4-35.0) H 02/11/24 04:49
Sodium 137 mmol/L (135-145) 02/11/24 04:49
Potassium 3.8 mmol/L (3.5-5.1) 02/11/24 04:49
BUN 14 mg/dl (9-20) 02/11/24 04:49
Creatinine 0.7 mg/dL (0.7-1.3) 02/11/24 04:49
Glucose 109 mg/dl (70-99) H 02/11/24 04:49
Troponins
02/09/24 02/09/24 02/09/24
13:30 15:26 19:00
Troponin I 0.102 H* 0.161 H* D 0.145 H*
Vital Signs and I&O:
Vital Signs
Temp Pulse Resp BP Pulse Ox
98.8 F 55 18 138/66 95
02/11/24 12:09 02/11/24 12:04 02/11/24 12:09 02/11/24 12:04 02/11/24 12:09
Vital Signs
Temp Pulse Resp BP Pulse Ox
98.8 F 55 18 138/66 95
02/11/24 12:09 02/11/24 12:04 02/11/24 12:09 02/11/24 12:04 02/11/24 12:09
Intake & Output
02/09/24 02/10/24 02/11/24 02/12/24
06:59 06:59 06:59 06:59
Intake Total 720 / 720
Output Total 300 / 300
Balance 420 / 420
Physical Exam
Physical Exam
����Physical Exam
���������������������General:��no apparent distress, not acutely ill
���������������������������Neck:��supple. no meningeal signs. normal psoterior pharynx
������������������������
���������������������������Heart:��s1/s2 regular rate and rhythm, no murmur. equal radial pulses.
��������������������������Lungs: ��Diminished at right base
����������������������Abdomen:�normal bowel sounds. not tender. no CVAT
��������������������������Neuro:��alert and oriented. no focal neurological deficits
������������������������������Skin: ��no rash
�����������������������Psychiatric:�well kept. interactive and cooperative
�����������������������Extremities:��no edema. no calf tenderness. negative homans. good distal pulses
��
�
--- NOTE | 2024-02-11 12:10 | PTCARENOTE ---
pt reassessment unchanged from previous, vss, ra, sb, heparin gtt, q6hr troponin.
--- NOTE | 2024-02-11 12:13 | PTCARENOTE ---
Pt reassessment unchanged from previous, vss, ra, nsr, pt oob in a chair, on heparin gtt, possible dc home tomorrow with plan CTS 02/19/24
[2024-02-11 12:20] LABS: APTT 76.4 Sec (23.4-35.0)
[2024-02-11 12:43] LABS: Glucose - Point of Care 203 mg/dl (70-99)
[2024-02-11] MEDS: PATIENT'S OWN INSULIN PUMP 12 UNITS SC ×2 (13:35→17:00)
[2024-02-11 15:25] VITALS: BP 133/65
[2024-02-11 16:12] LABS: Glucose - Point of Care 179 mg/dl (70-99)
--- NOTE | 2024-02-11 16:30 | PTCARENOTE ---
pt reassessment unchanged from previous, vss, ra, nsr/sb, heparin gtt therapeutic daily check, no c/o cp, self care in the room.
[2024-02-11] MEDS: ROCEPHIN 1000 MG IV (18:35)
[2024-02-11 19:39] VITALS: BP 154/67
[2024-02-11 21:43] LABS: Glucose - Point of Care 155 mg/dl (70-99)
[2024-02-11] MEDS: PATIENT'S OWN INSULIN PUMP SC (21:51)
[2024-02-11 22:02] VITALS: BP 144/66
[2024-02-12] VITALS (7 sets, daily range): BP systolic 126–157; BP diastolic 60–67
--- NOTE | 2024-02-12 03:26 | PTCARENOTE ---
Rec'd pt at change of shift. Pt AAO*3, VSS, and in NSR on TELE monitor. Pt updated of plan of care and aware of possible discharge tomorrow, pending ct surgery. Pt denies any pain or discomfort. Heparin infusing currently (see flowsheet for full
assessment). Pt resting with call kearns in reach.
[2024-02-12] MEDS: HEPARIN 25000 UNITS/250 ML IV (03:55)
[2024-02-12 05:19] LABS: % Basophils 0.7 % (0-2); % Eosinophils 3.6 % (0-6); % Immature Granulocytes 1.8 % (0-0.5); % Lymphocytes 20.6 % (20.5-51.1); % Monocytes 10.6 % (1.7-9.3); % Neutrophils 62.7 % (42.2-75.2); Absolute Basophils 0.1 10^3/uL (0-0.2); Absolute Eosinophils 0.3 10^3/uL (0-0.7); Absolute Immature Granulocytes 0.2 10^3/uL (0-0.05); Absolute Lymphocytes 1.9 10^3/uL (1.2-3.4); Absolute Neutrophils 5.9 10^3/uL (1.4-6.5); Hematocrit 37.6 % (39.0-52.0); Hemoglobin 12.2 g/dL (13.0-18.0); Mean Corp Hgb Conc. 32.4 g/dL (33.0-37.0); Mean Corpuscular Volume 92.6 fL (80.0-94.0); Mean Platelet Volume 10.2 fL (7.4-10.4); Nucleated Red Blood Cells % 0 % (-); Platelet Count 326 10^3/uL (130-400); Red Blood Cell Count 4.06 10^6/uL (4.70-6.10); White Blood Cell Count 9.4 10^3/uL (4.8-10.8)
[2024-02-12 05:30] LABS: APTT 51.9 Sec (23.4-35.0)
[2024-02-12 05:47] LABS: ALT (SGPT) 26 U/L (0-50); AST (SGOT) 28 U/L (17-59); Albumin 3.2 g/dl (3.5-5.0); Alkaline Phosphatase 119 U/L (38-126); Blood Urea Nitrogen 14 mg/dl (9-20); Calcium 8.3 mg/dl (8.4-10.2); Carbon Dioxide 23 mmol/L (22-30); Chloride 104 mmol/L (98-107); Estimated Creatinine Clearance > 125 ml/min; Glucose 108 mg/dl (70-99); Potassium 4.2 mmol/L (3.5-5.1); Sodium 137 mmol/L (135-145); Total Bilirubin 0.5 mg/dl (0.2-1.3); Total Protein 6.2 g/dl (6.3-8.2); eGFR > 60.00
[2024-02-12 08:06] LABS: Glucose - Point of Care 150 mg/dl (70-99)
[2024-02-12] MEDS: VIBRAMYCIN 100 MG PO ×2 (08:15→20:07)
[2024-02-12] MEDS: ZETIA 10 MG PO (08:15)
[2024-02-12] MEDS: PATIENT'S OWN INSULIN PUMP 16 UNITS SC (08:15)
[2024-02-12] MEDS: ZESTRIL 5 MG PO (08:16)
[2024-02-12] MEDS: ASPIR LOW (ENTERIC COATED) 81 MG PO (08:16)
[2024-02-12] MEDS: CRESTOR 40 MG PO (08:16)
[2024-02-12] MEDS: TOPROL XL 25 MG PO (08:16)
[2024-02-12] MEDS: FOLVITE 0.4 MG PO (08:16)
[2024-02-12] MEDS: VITAMIN D3 (cholecalciferol) 50 MCG PO (08:16)
[2024-02-12] MEDS: IMDUR (EXTENDED RELEASE) 30 MG PO ×2 (08:18→20:07)
--- NOTE | 2024-02-12 08:30 | PTCARENOTE ---
Heparin gtt stopped per orders.
--- NOTE | 2024-02-12 11:10 | W.PN.CARDCBS ---
Addendum entered and electronically signed by Stan Kirkland MD 02/12/24 12:00:
I saw and examined the patient.
The SAFETY COUNSELOR or PA's note was reviewed and I agree with the note.
Comment: General: Well developed, well nourished in NAD.
Neck: Supple, no JVD, HJR, carotids +2 B/L, no bruits bilaterally.
Heart: Non displaced PMI, RRR, no murmurs, No S3, S4, no rubs.
Lungs: Clear to auscultation bilaterally, no wheeze, rhonchi, rubs bilaterally,
normal expiratory phase.
Extremities: No clubbing, cyanosis or edema bilaterally.
Neuro: Grossly nonfocal, awake, alert and oriented x3.
Cardiovascular stable. Will stop IV heparin and ambulate. If no further chest pain stable for discharge on 02/12. Plan for outpatient CABG on 02/18
Original Note:
Today's Communication / Plan
-
Continue abx per primary service
Continue aspirin, rosuvastatin, metoprolol, lisinopril, and imdur
CABG planned for 02/18
Impression / Plan
-
PCP: Sue DA SILVA
[facility]er [facility] Filling: Dr. Kirkland
Impression:
Right lower lobe pneumonia
CAD, sequential proximal, mid and distal LAD stenosis, occluded mid right coronary, scheduled for CABG February 19, 2024
Inferior myocardial infarction 2001 with bare-metal stent to mid right coronary artery
Type 1 diabetes
Hypertension
Hypercholesterolemia
Degenerative disc disease
Cardiac catheterization 01/24/2024: LVEDP 25, LV 126/10, luminal irregularities in the left main, tubular 80% stenosis proximal LAD, diffuse 70-80% mid to distal LAD, 2 diagonal branches, small circumflex with mild to moderate atherosclerosis in
small to medium OM1, RCA is 100% occluded and feeds via left to right collaterals, no V gram
Echo 01/24/2024: mildly dilated left ventricle, low normal systolic function, thin akinetic inferior wall, inferolateral hypokinesis, EF is 50-55%, normal RV, normal atria, trace MR, normal aortic valve, could not determine pulmonary artery systolic
pressure
Plan:
-Presented with RLL pneumonia. Continue management per primary service. Symptomatically improving
-Stable from a cardiac standpoint. Mild elevation in trop noted this admission, peaking at 0.161 and trending down thereafter. suspect nonischemic myocardial injury in the setting of known CAD w/ acute PNA.
-[facility] 01/24/2024 w/ MV CAD as noted above. Plan is for CABG 02/18.
-Continue medical therapy for now. Continue lisinopril, Imdur, and Toprol.
-Continue aspirin 81mg daily.
-Continue rosuvastatin 40mg daily.
Progress Note - [employer]er [employer] Filling
Subjective
Date of Service: February 12, 2024
Improving w/ treatment of PNA
Objective
Labs:
02/12/24 04:16
02/12/24 04:16
Labs
Hgb 12.2 g/dL (13.0-18.0) L 02/12/24 04:16
Hct 37.6 % (39.0-52.0) L 02/12/24 04:16
Plt Count 326 10^3/uL (130-400) 02/12/24 04:16
APTT 51.9 Sec (23.4-35.0) H 02/12/24 04:16
Sodium 137 mmol/L (135-145) 02/12/24 04:16
Potassium 4.2 mmol/L (3.5-5.1) 02/12/24 04:16
BUN 14 mg/dl (9-20) 02/12/24 04:16
Creatinine 0.6 mg/dL (0.7-1.3) L 02/12/24 04:16
Glucose 108 mg/dl (70-99) H 02/12/24 04:16
Troponins
02/09/24 02/09/24 02/09/24
13:30 15:26 19:00
Troponin I 0.102 H* 0.161 H* D 0.145 H*
Vital Signs and I&O:
Vital Signs
Temp Pulse Resp BP Pulse Ox
98.3 F 51 18 134/63 94
02/12/24 10:50 02/12/24 10:00 02/12/24 10:50 02/12/24 08:16 02/12/24 10:50
Vital Signs
Temp Pulse Resp BP Pulse Ox
98.3 F 51 18 134/63 94
02/12/24 10:50 02/12/24 10:00 02/12/24 10:50 02/12/24 08:16 02/12/24 10:50
Intake & Output
02/10/24 02/11/24 02/12/24 02/13/24
06:59 06:59 06:59 06:59
Intake Total 720 / 720 240 / 240
Output Total 300 / 300
Balance 420 / 420 240 / 240
Physical Exam
Physical Exam
GEN: No distress, awake, alert, oriented x3
HEENT: supple, anicteric, mmm
LUNGS: No audible wheeze
CV: Reg, S1/S2, no murmur
EXT: No clubbing, cyanosis, or edema
NEURO: Gross non-focal
SKIN: warm, dry, no rash
--- NOTE | 2024-02-12 11:30 | CM ---
Reviewed chart. Met with Mr. Goel to review discharge plans. He states he is feeling well and maybe able to go home soon. He states prior to admission he resides with his spouse in a two story home with three steps to enter. He states he has a
full flight of steps to get to bedroom/full bathroom. He states he has a powder room on the first floor. He states prior to admission he was independent with ambulation and adls. He states he does not have any DME in the home. He states he has a
prescription plan and uses [facility]. He states he is scheduled to come back 02/19/24 for heart surgery. Medical work-up in progress. The discharge plan is to return home with his spouse when medically stable.
[2024-02-12 12:50] LABS: Glucose - Point of Care 190 mg/dl (70-99)
[2024-02-12] MEDS: PATIENT'S OWN INSULIN PUMP 15 UNITS SC (13:30)
--- NOTE | 2024-02-12 13:48 | W.PN.HOSP.TC ---
Today's Communication/Plan
-
Continue antibiotic
Continue with encouraged ambulation
Plan for CABG on 02/19/2024 remains
Assessment / Plan
Assessment / Plan
Physical Exam
General: Comfortable and Conversant; No Pain, Fever or Chills
HEENT: Normocephalic, Anicteric, Moist mucous membranes, PERRLA, [place] Conjunctivae, No Ptosis and Neck Nontender
Respiratory: No Wheezes, Rales or Rhonchi
Cardiac: S1/S2
GI: Soft, Non Tender, Non Distended,
Genito-urinary: no hematuria
Musculoskeletal: No Clubbing, No Cyanosis and No Edema
Skin: Warm and Dry; No Rash or Jaundice
Neuro: AO x 3, Cranial Nerves Intact and No Sensory Deficits; No Slurred Speech, Facial Droop, Tremors or Sedated
Psych: Calm
#Right lower lobe bronchopneumonia/Multifocal
Less sob
Less cough
COVID-negative.
Influenza negative
Negative legionella and streptococcal Ag
blood culture 02/09 pending
-c/w IV Rocephin, doxycycline 100 mg twice daily
- No hypoxia, WBC down to normal. Switch to p.o. antibiotics on discharge.
#NSTEMI
#CAD/[place] Hx
troponin 0.12 up to 0.16 then down to 0.14
No chest pain , continue aspirin 81 mg daily
- cont Imdur 30 mg daily
- nitro s/l prn cp
-s/p Iv Heparin Gtt
-Patient due for CABG x triple-vessel 02/19/2024
-Consult [facility] cardiology Dr. TJ Bell aware
Cardiac cath on 01/24/24 showing significant two-vessel CAD involving the LAD 80% proximal and 70-80% in the mid to distal LAD with uumb-kw-ethlg collateral circulation noted
Left circumflex artery diminutive vessel which gives off 1 small to medium caliber OM with mild to moderate diffuse atherosclerotic plaque
Dominant Right Coronary Artery 100% occlusion in the midportion left to right collaterals present
history of prior stent placement 20 years ago
#Dm2
AccuCheck with ssi,
7.2 hgba1c
- cont pt's own insulin pump. AM BG 190
#HTN- benign
-Continue lisinopril 5 mg daily, metoprolol succinate 25 mg daily
#HLD
-Continue Zetia 10 mg daily, Crestor 40 mg daily
#Former smoker
25 year 1 ppd stopped 22 years ago
Dvt proph
-sq heparin
full code
Anticipated Discharge: Within 24 hours
Subjective/Interval History
-
Date of Service: February 12, 2024
Ambulating without difficulty.
States of some sore throat. No productive cough. Remains afebrile.
Objective Data
-
Labs:
Laboratory Results
02/12/24 02/12/24
04:16 12:20
WBC 9.4
Hgb 12.2 L
Hct 37.6 L
Plt Count 326
APTT 51.9 H Pending
Sodium 137
Potassium 4.2
Chloride 104
Carbon Dioxide 23
BUN 14
Creatinine 0.6 L
Glucose 108 H
Calcium 8.3 L
Total Bilirubin 0.5
AST 28
ALT 26
Alkaline Phosphatase 119
Vital Signs:
Vital Signs
Temp Pulse Resp BP Pulse Ox
98.3 F 57 18 126/61 96
02/12/24 10:50 02/12/24 12:00 02/12/24 10:50 02/12/24 10:51 02/12/24 10:51
I&O
02/11/24 02/12/24 02/13/24
06:59 06:59 06:59
Intake Total 720 / 720 240 / 240
Output Total 300 / 300
Balance 420 / 420 240 / 240
--- NOTE | 2024-02-12 15:03 | PTCARENOTE ---
Pt is AOx3, no complaints of pain or discomfort. heparin gtt stopped per orders. Pt walking around unit by self. Pt took shower. VSS, SR on tele monitor. Call kearns within reach.
[2024-02-12] MEDS: ROCEPHIN 1000 MG IV (17:07)
[2024-02-12 17:15] LABS: Glucose - Point of Care 219 mg/dl (70-99)
[2024-02-12] MEDS: PATIENT'S OWN INSULIN PUMP 8 UNITS SC (18:06)
[2024-02-12 22:53] LABS: Glucose - Point of Care 108 mg/dl (70-99)
[2024-02-12] MEDS: MELATONIN 5 MG PO (22:56)
[2024-02-12] MEDS: PATIENT'S OWN INSULIN PUMP SC (23:09)
--- NOTE | 2024-02-13 00:34 | PTCARENOTE ---
Rec'd pt at change of shift. Pt AAO*3, VSS, and in NSR on TELE monitor with Pt denies any pain or discomfort. Pt updated on plan of care and ambulating on unit without assistance under nursing supervision. Pt resting with call kearns in reach.
Plan of care ongoing.
[2024-02-13 05:03] VITALS: BP 134/67
[2024-02-13 05:04] VITALS: BP 134/67
[2024-02-13 05:28] LABS: Hematocrit 35.7 % (39.0-52.0); Mean Corp Hgb Conc. 33.6 g/dL (33.0-37.0); Mean Corpuscular Hgb 30.6 pg (27.0-31.0); Mean Corpuscular Volume 91.1 fL (80.0-94.0); Mean Platelet Volume 9.4 fL (7.4-10.4); Platelet Count 358 10^3/uL (130-400); Red Blood Cell Count 3.92 10^6/uL (4.70-6.10); Red Cell Dist. Width 12.1 % (11.5-14.5); White Blood Cell Count 9.3 10^3/uL (4.8-10.8)
[2024-02-13 07:26] VITALS: BP 140/65
[2024-02-13 07:30] LABS: Glucose - Point of Care 119 mg/dl (70-99)
[2024-02-13] MEDS: CRESTOR 40 MG PO (07:35)
[2024-02-13] MEDS: VIBRAMYCIN 100 MG PO (07:36)
[2024-02-13] MEDS: ZESTRIL 5 MG PO (07:36)
[2024-02-13] MEDS: VITAMIN D3 (cholecalciferol) 50 MCG PO (07:36)
[2024-02-13] MEDS: TOPROL XL 25 MG PO (07:36)
[2024-02-13] MEDS: FOLVITE 0.4 MG PO (07:36)
[2024-02-13] MEDS: ASPIR LOW (ENTERIC COATED) 81 MG PO (07:36)
[2024-02-13] MEDS: ZETIA 10 MG PO (07:36)
[2024-02-13] MEDS: IMDUR (EXTENDED RELEASE) 30 MG PO (07:38)
[2024-02-13] MEDS: PATIENT'S OWN INSULIN PUMP 7.5 UNITS SC (08:00)
[2024-02-13 09:19] VITALS: BP 129/66
[2024-02-13 09:25] VITALS: BP 129/66; PULSE 56
--- NOTE | 2024-02-13 09:45 | PTOTSP ---
The patient is independent with ambulation and elevations, able to perform ear-wx-wcxyj transfers repetitively without use of UE's in preparation for CABG 02/18. Encouraged continued ambulation and ccn-ia-zqpbk reps for exercise. No further PT needs
at this time, will sign off. Please reconsult PT postop to resume therapy services.
--- NOTE | 2024-02-13 10:05 | W.PN.CARDCBS ---
Addendum entered and electronically signed by Randall Miguel MD 02/13/24 11:07:
I saw and examined the patient.
The Antit[employer] Assault Gunner's note was reviewed and I agree with the note.
Comment: Briefly, 63-year-old man with multivessel CAD planned for CABG 02/19/24 who presented to [place] emergency department for evaluation of URI symptoms and was found to have multifocal pneumonia based on CT chest and is being treated with abx
for CAP.
Low-level troponin elevation on admission which was thought to be non-NH troponin
Treated medically with aspirin/statin, beta-shalonda and heparin drip
Asymptomatic this morning, tells me he has taken 7 or 8 laps around the IVU and is not experiencing any chest discomfort
Telemetry shows normal sinus rhythm overnight
Physical exam is unremarkable
Stable for discharge from my perspective with plan to return next week for CABG as scheduled
Reviewed medication adherence and activity restriction in the interim
Rest per Karla Castillo
Original Note:
Today's Communication / Plan
-
-okay for discharge from cardiac standpoint-discharge on current cardiac regimen: ASA, rosuvastatin, zetia, metoprolol, lisinopril, isosorbide
-for outpatient CABG 02/19/2024
Impression / Plan
-
PCP: Sue DA SILVA
Light Truck Driver: Dr. Kirkland
Impression:
Right lower lobe pneumonia
CAD, sequential proximal, mid and distal LAD stenosis, occluded mid right coronary, scheduled for CABG February 19, 2024
Inferior myocardial infarction 2001 with bare-metal stent to mid right coronary artery
Type 1 diabetes
Hypertension
Hypercholesterolemia
Degenerative disc disease
Cardiac catheterization 01/24/2024: LVEDP 25, LV 126/10, luminal irregularities in the left main, tubular 80% stenosis proximal LAD, diffuse 70-80% mid to distal LAD, 2 diagonal branches, small circumflex with mild to moderate atherosclerosis in
small to medium OM1, RCA is 100% occluded and feeds via left to right collaterals, no V gram
Echo 01/24/2024: mildly dilated left ventricle, low normal systolic function, thin akinetic inferior wall, inferolateral hypokinesis, EF is 50-55%, normal RV, normal atria, trace MR, normal aortic valve, could not determine pulmonary artery systolic
pressure
Plan:
-Presented with RLL pneumonia. Continue management per primary service, remains on IV abx, to be transitioned to oral at time of discharge. Symptomatically improving
-Stable from a cardiac standpoint. Mild elevation in trop noted this admission, peaking at 0.161 and trending down thereafter. suspect nonischemic myocardial injury in the setting of known CAD w/ acute PNA.
-[facility] 01/24/2024 w/ MV CAD as noted above. Plan is for elective admission for CABG 02/19/2024.
-no chest pain
-Continue medical therapy for now. Continue ASA 81 mg, statin, lisinopril, Imdur, and Toprol.
-Off heparin
-Continue rosuvastatin 40mg daily and Zetia 10 mg daily.
-Telemetry personally reviewed: NSR 60s-70s, pacs, pvcs
Progress Note - Light Truck Driver
Subjective
Date of Service: February 13, 2024
-feels well, no SOB, CP
-off Heparin
-continues IV abx for pneumonia
Objective
Labs:
02/13/24 05:12
02/12/24 04:16
Labs
Hgb 12.0 g/dL (13.0-18.0) L 02/13/24 05:12
Hct 35.7 % (39.0-52.0) L 02/13/24 05:12
Plt Count 358 10^3/uL (130-400) 02/13/24 05:12
APTT Cancelled 02/12/24 12:20
Sodium 137 mmol/L (135-145) 02/12/24 04:16
Potassium 4.2 mmol/L (3.5-5.1) 02/12/24 04:16
BUN 14 mg/dl (9-20) 02/12/24 04:16
Creatinine 0.6 mg/dL (0.7-1.3) L 02/12/24 04:16
Glucose 108 mg/dl (70-99) H 02/12/24 04:16
Vital Signs and I&O:
Vital Signs
Temp Pulse Resp BP Pulse Ox
98.4 F 71 18 140/65 95
02/13/24 07:27 02/13/24 07:26 02/13/24 07:27 02/13/24 07:26 02/13/24 09:44
Vital Signs
Temp Pulse Resp BP Pulse Ox
98.4 F 71 18 140/65 95
02/13/24 07:27 02/13/24 07:26 02/13/24 07:27 02/13/24 07:26 02/13/24 09:44
Intake & Output
02/11/24 02/12/24 02/13/24 02/14/24
06:59 06:59 06:59 06:59
Intake Total 720 / 720 240 / 240 960 / 960
Output Total 300 / 300
Balance 420 / 420 240 / 240 960 / 960
Physical Exam
Physical Exam
GEN: No distress, awake, Ox3
HEENT: supple, anicteric, mmm
LUNGS: CTA, no wheezes/rales
CV: Reg, S1/S2, no murmur
ABD: soft, BS+, NT/ND
EXT: No edema
NEURO: Gross non-focal
SKIN: No rash
--- NOTE | 2024-02-13 10:48 | W.PN.HOSP.TC ---
Addendum entered and electronically signed by Primo Fontanez MD 02/15/24 13:44:
Troponin elevation likely secondary to nonischemic myocardial injury in the setting of known CAD with acute infection.
Original Note:
Today's Communication/Plan
-
PO ABX ON DC
CABG 02/19/24
Assessment / Plan
Assessment / Plan
Physical Exam
General: Comfortable and Conversant; No Pain, Fever or Chills
HEENT: Normocephalic, Anicteric, Moist mucous membranes, PERRLA, [place] Conjunctivae, No Ptosis and Neck Nontender
Respiratory: No Wheezes, Rales or Rhonchi
Cardiac: S1/S2
GI: Soft, Non Tender, Non Distended,
Genito-urinary: no hematuria
Musculoskeletal: No Clubbing, No Cyanosis and No Edema
Skin: Warm and Dry; No Rash or Jaundice
Neuro: AO x 3, Cranial Nerves Intact and No Sensory Deficits; No Slurred Speech, Facial Droop, Tremors or Sedated
Psych: Calm
#Right lower lobe bronchopneumonia/Multifocal
Less sob
Less cough
COVID-negative.
Influenza negative
Negative legionella and streptococcal Ag
blood culture 02/09 pending
-c/w IV Rocephin, doxycycline 100 mg twice daily
- No hypoxia, WBC down to normal. Switch to p.o. antibiotics on discharge.
#NSTEMI
#CAD/[place] Hx
troponin 0.12 up to 0.16 then down to 0.14
No chest pain , continue aspirin 81 mg daily
- cont Imdur 30 mg daily
- nitro s/l prn cp
-s/p Iv Heparin Gtt
-Patient due for CABG x triple-vessel 02/19/2024
-Consult [facility] cardiology Dr. TJ Bell aware
Cardiac cath on 01/24/24 showing significant two-vessel CAD involving the LAD 80% proximal and 70-80% in the mid to distal LAD with abdv-vc-tmskt collateral circulation noted
Left circumflex artery diminutive vessel which gives off 1 small to medium caliber OM with mild to moderate diffuse atherosclerotic plaque
Dominant Right Coronary Artery 100% occlusion in the midportion left to right collaterals present
history of prior stent placement 20 years ago
#Dm2
AccuCheck with ssi,
7.2 hgba1c
- cont pt's own insulin pump.
#HTN- benign
-Continue lisinopril 5 mg daily, metoprolol succinate 25 mg daily
#HLD
-Continue Zetia 10 mg daily, Crestor 40 mg daily
#Former smoker
25 year 1 ppd stopped 22 years ago
Dvt proph
-sq heparin
full code
d/w with cardiology okay for dc too.
Pt understands to return to ER if with Fever, sob new onset or with chest pain.
More than 30 minutes spent in discharge including
Final examination of the patient
Summarizing hospital stay
Instructions for continuing care to all relevant caregivers
Preparation of discharge records, prescriptions, and referral forms
Total time spent (in minutes): 52
Anticipated Discharge: Today
Subjective/Interval History
-
Date of Service: February 13, 2024
states decrease in cough
afebrile
walking around without any chest pain or sob
Objective Data
-
Labs:
Laboratory Results
02/13/24
05:12
WBC 9.3
Hgb 12.0 L
Hct 35.7 L
Plt Count 358
Vital Signs:
Vital Signs
Temp Pulse Resp BP Pulse Ox
98.4 F 71 18 140/65 95
02/13/24 07:27 02/13/24 07:26 02/13/24 07:27 02/13/24 07:26 02/13/24 09:44
I&O
02/12/24 02/13/24 02/14/24
06:59 06:59 06:59
Intake Total 240 / 240 960 / 960
Balance 240 / 240 960 / 960
--- NOTE | 2024-02-13 10:51 | W.DCSUMMARY ---
Discharge Summary
Discharge Data
Date of Admission: 02/09/24
Date of Discharge: 02/13/24
-
Pending Results: No
Hospital Course
63-year-old male past medical history of CAD with multivessel disease, diabetes mellitus on insulin pump, hypertension, hyperlipidemia, history of tobacco abuse who is presenting from home with complaint of nasal congestion and fatigue. Patient was
recommended chest discomfort. Patient upon admission was found to mildly elevated troponin cardiology was consulted. Heparin drip was started. Cardiology evaluated the patient. Patient was checked for influenza and COVID which is negative. CT
of chest was performed which showed multifocal pneumonia. Heparin drip was discontinued per cardiology. Patient remained chest pain-free. Patient was continued IV antibiotics. Patient was ambulating without any difficulty. Cardiology
recommended to monitor off heparin drip. Patient without any chest pain. Per cardiology discussed with CT surgery and plan remains for outpatient CABG on 02/18. Patient will be discharged on p.o. antibiotics as vital signs stable. Afebrile.
Ambulating without any difficulty.
Discharge Plan
-
Patient Disposition: Home (Routine Discharge)
Discharge Diagnosis/Procedures: Right lower lobe bronchopneumonia
Condition: Fair
Diet: Low Cholesterol
Activity: With assistance and As tolerated
Driving Restrictions: As prior to admission
Referrals:
Sue Burkett CRNP [Family Provider] - in less than 1 week
Hi Allen MD [Active] - 02/19/24 (You are scheduled to return for cardiac surgery on 02/19/24. )
Prescriptions:
New
cefdinir 300 mg capsule
300 mg PO BID Qty: 6 0RF
doxycycline hyclate 100 mg capsule
100 mg PO BID Qty: 7 0RF
Continued
folic acid 400 mcg Tablet
0.4 mg PO DAILY
lisinopril 5 mg Tablet
5 mg PO DAILY
metoprolol succinate 25 mg Tablet Extended Release 24 Hr
25 mg PO DAILY
ezetimibe 10 mg Tablet
10 mg PO DAILY
rosuvastatin 40 mg Tablet
40 mg PO DAILY
cholecalciferol (vitamin D3) [Vitamin D3] 50 mcg (2,000 unit) Tablet
50 mcg PO DAILY
furosemide [Lasix] 20 mg tablet
20 mg PO DAILY Qty: 90 3RF
nitroglycerin 0.4 mg tablet, sublingual
0.4 mg sublingual [id number] PRN (Reason: chest pain) Qty: 25 2RF
isosorbide mononitrate 30 mg tablet extended release 24 hr
30 mg PO BID
Patient's Own Insulin Pump
1 sliding scale dose SC AC
Patient Comments:
02/09/24: uses insulin aspart
aspirin 81 mg Capsule
81 mg
Discharge Orders:
Discharge Patient (As Directed); Ordered 02/13/24
Ordered By: Primo Fontanez
Care Plan Goals
Care Plan Goals:
Problem: Readiness for enhanced knowledge related to diagnosis and treatment plan
Goal: Understand your diagnosis and treatment plan needs, including medications if applicable.
Instructions: Know your diagnosis, underlying causes and treatment plan options, including medications if applicable. Consult with your health care team to learn about your diagnosis and treatment plan, including medications if applicable.
Discharge Date and Time
Discharge Date/Time: 02/13/24 12:31
Print Language: IVORIAN
[2024-02-13 11:13] VITALS: BP 117/58
--- NOTE | 2024-02-13 11:56 | PN.CDI ---
CDI
- -
CDI:
Physician Documentation Request
Admit Date: 02/09/24 19:46
Dear Doctor Huseyin,
Patient admitted for multifocal pneumonia.
1231 Cardiology PN: 'Stable from a cardiac standpoint. Mild elevation in trop noted this admission, peaking at 0.161 and trending down thereafter. suspect nonischemic myocardial injury in the setting of known CAD w/ acute PNA.'
02/12 Hospitalist PN: '#NSTEMI #CAD/[place] Hx, troponin 0.12 up to 0.16 then down to 0.14, No chest pain , continue aspirin 81 mg daily - cont Imdur 30 mg daily'
Please clarify the following regarding the documented troponin elevation:
Nonischemic myocardial injury
NSTEMI
Other
Use of terms such as suspected, likely, concern for, or probable (associated with a specific diagnosis that is being evaluated, monitored, or treated as if it exists) are acceptable and can be coded in the inpatient setting, when documented at the
time of discharge.
Thank you,
Anna Bonilla RN, BSN
CDI Specialist
Available via [employer] text
Please use your independent medical judgment in providing your response.
--- NOTE | 2024-02-13 12:15 | PTCARENOTE ---
Pt received this am with no c/o of chest pain or sob. OOB ad lety in the room. Room air sat 96%. Pt discharged to home with his . Discharge instructions given and reviewed with pt and his with good understanding.
== END 2024-02-13 12:31 | disposition home or self-care (01) | DRG 194 ==
LOC: IVU 19:46
PROVIDERS: Clinical Nurse Specialist Family Health; Emergency Medicine; Internal Medicine; Nurse Practitioner Gerontology; Physician Assistant Medical; ADMITTING PHYSICIAN Hospitalist; ATTENDING PHYSICIAN Hospitalist; CONSULT PHYSICIAN Internal Medicine Cardiovascular Disease; EMERGENCY PHYSICIAN Emergency Medicine; FAMILY PHYSICIAN Nurse Practitioner
DX: J18.0 Bronchopneumonia, unspecified organism (principal); I5A Non-ischemic myocardial injury (non-traumatic); I10 Essential (primary) hypertension; I25.10 Atherosclerotic heart disease of native coronary artery without angina pectoris; K21.9 Gastro-esophageal reflux disease without esophagitis; E78.00 Pure hypercholesterolemia, unspecified; E10.9 Type 1 diabetes mellitus without complications; I25.82 Chronic total occlusion of coronary artery; I25.2 Old myocardial infarction; Z86.16 Personal history of COVID-19; Z87.891 Personal history of nicotine dependence; Z96.41 Presence of insulin pump (external) (internal); Z20.822 Contact with and (suspected) exposure to COVID-19; Z79.82 Long term (current) use of aspirin; Z79.899 Other long term (current) drug therapy
CPT/HCPCS: 71046; 71275; 80053; 80061; 82962; 83036; 83880; 84484; 85025; 85027; 85730; 87040; 87449; 87502; 87811; 87899; 93005; 96365; 96375; 97116; 97161; 97165; 99285; Q9967

== ENCOUNTER 2024-02-19 04:58 | Inpatient (IN) | payer BC, SELFPAY ==
[2024-02-15 12:11] VITALS: BMI 27.3
[2024-02-15 13:05] LABS: INR 1.03
[2024-02-15 13:06] LABS: APTT 31.7 Sec (23.4-35.0)
[2024-02-15 13:10] LABS: % Basophils 0.8 % (0-2); % Eosinophils 2.9 % (0-6); % Immature Granulocytes 1.7 % (0-0.5); % Lymphocytes 20.4 % (20.5-51.1); % Monocytes 7.6 % (1.7-9.3); % Neutrophils 66.6 % (42.2-75.2); Absolute Basophils 0.1 10^3/uL (0-0.2); Absolute Eosinophils 0.3 10^3/uL (0-0.7); Absolute Immature Granulocytes 0.2 10^3/uL (0-0.05); Absolute Lymphocytes 1.9 10^3/uL (1.2-3.4); Absolute Monocytes 0.7 10^3/uL (0.1-0.6); Absolute Neutrophils 6.2 10^3/uL (1.4-6.5); Hematocrit 39.6 % (39.0-52.0); Hemoglobin 13.3 g/dL (13.0-18.0); Mean Corp Hgb Conc. 33.6 g/dL (33.0-37.0); Mean Corpuscular Volume 92.3 fL (80.0-94.0); Mean Platelet Volume 9.4 fL (7.4-10.4); Nucleated Red Blood Cells % 0 % (-); Platelet Count 472 10^3/uL (130-400); Red Blood Cell Count 4.29 10^6/uL (4.70-6.10); Red Cell Dist. Width 12.1 % (11.5-14.5); White Blood Cell Count 9.3 10^3/uL (4.8-10.8)
[2024-02-15 13:32] LABS: Urine Albumin Negative (Neg - Trace); Urine Bilirubin Negative (Negative); Urine Character Clear (Clear); Urine Color Yellow; Urine Glucose Negative (Negative); Urine Ketone Negative (Negative); Urine Leukocyte Negative (Negative); Urine Nitrite Negative (Negative); Urine Occult Blood Negative (Negative); Urine Specific Gravity 1.015 (<1.030); Urine Urobilinogen Negative (Neg - 1+)
--- NOTE | 2024-02-15 14:14 | CM ---
Addendum entered by JUAN Torres 02/15/24 14:19:
Addendum to below:
If geographical area prohibits CT RN to see patient in MD, will refer to VN.
Original Note:
CM following for DC planning needs.
Met w/ patient and spouse, Maryjane during PATs for planned CABG, 02/18.
Pt. resides w/ spouse in a private, 2 story home w/ 3 RADHA. Functionally, patient is indep. w/ ADLs, mobility.
Pt. 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
Pt. has RX plan and uses [email or web address] in [place] for prescription needs.
Reviewed pre and post op routines.
Soap, shower instructions and Cardiac Surgery booklet provided.
Discussed post op restrictions to include lifting, driving, flying and sternal precautions.
Reviewed post op MD appointments, Cardiac Rehab and visit from [facility] Transitional Care RN.
Plan is for CABG 02/18
Antic. DC plan is for home w/ CT Transitional Care RN.
[2024-02-15 14:19] LABS: ALT (SGPT) 48 U/L (0-50); AST (SGOT) 42 U/L (17-59); Albumin 3.8 g/dl (3.5-5.0); Alkaline Phosphatase 122 U/L (38-126); Blood Urea Nitrogen 14 mg/dl (9-20); Calcium 8.9 mg/dl (8.4-10.2); Carbon Dioxide 27 mmol/L (22-30); Chloride 100 mmol/L (98-107); Direct Bilirubin 0.3 mg/dl (0.0-0.4); Estimated Creatinine Clearance 124 ml/min; Glucose 183 mg/dl (70-99); Potassium 4.8 mmol/L (3.5-5.1); Sodium 135 mmol/L (135-145); Total Bilirubin 0.6 mg/dl (0.2-1.3); Total Protein 6.9 g/dl (6.3-8.2); eGFR > 60.00
[2024-02-19] VITALS (8 sets, daily range): BP systolic 99–159; BP diastolic 62–71; BMI 26.9
--- NOTE | 2024-02-19 05:43 | W.PN.UPDATE ---
Update Note
Progress Note Update
Pt's preop dose of Lopressor is contraindicated and not given as pt's HR noted to be 47- 50 bpm
--- NOTE | 2024-02-19 06:14 | W.CVOR.SURPR ---
CVOR Surgeon Immed Pre Op
-
I have examined this patient prior to performance of the scheduled procedure.
The patient's condition is unchanged from the time of the dictated/written History and
Physical and the patient is able to undergo the scheduled procedure.
[2024-02-19] MEDS: MAGNESIUM OXIDE 500 MG PO (06:18)
[2024-02-19] MEDS: BACTROBAN 2% OINTMENT 1 APPLIC NASAL ×2 (06:18→21:58)
[2024-02-19] MEDS: PROTONIX 40 MG PO (06:19)
[2024-02-19 06:33] LABS: Glucose - Point of Care 132 mg/dl (70-99)
[2024-02-19] MEDS: ANCEF 10 IV ×2 (07:00→11:28)
--- NOTE | 2024-02-19 07:19 | PTCARENOTE ---
Addendum entered by Jose Troncoso RN 02/19/24 07:24:
Of note, med summary done with pt. He denies taking tadalafil. All other meds updated on APR.
Original Note:
Pt admitted to CVICU at 0520. Pt NPO of food and fluid since 02/18/24 at 2030. Reports taking required, two Hibiclens showers at home. Pt clipped/prepped for CVOR. CHG bath given. New gown provided. Pre-op metoprolol held due to bradycardia, HR 50
bpm. Normotensive. Insulin gtt d/c'ed air pollution control engineer to OR. Glucose checked and is 132. Denies CP. All information discussed with Ed, PA. at bedside with pt. Dr. Allen in to see pt and before surgery. Sent to CVOR with RN and tech. Report to
CVOR RN at ~ 0630.
[2024-02-19 07:42] LABS: ACT+ - POC 101 Seconds (82-134)
[2024-02-19 07:53] LABS: B.E. - POC 0.5 mmol/L; Glucose - POC 116 mg/dl (70-99); HCO3 - POC 26 mmol/L (21-28); Hematocrit - POC 39 % PCV (42-52); Hemodilution- POC No; Hemoglobin Calculated - POC 13.4; O2 Saturation %Calculated-POC 99.4 % (94-98); PCO2 - POC 43 mmHg (35-48); PO2 - POC 157 mmHg (83-108); POC Comment PRE; Potassium - POC 4.2 mmol/L (3.5-5.1); Sodium - POC 141 mmol/L (136-145); Specimen Type - POC Arterial; pH - POC 7.39 (7.35-7.45)
[2024-02-19 07:54] LABS: Urine Albumin Trace (Neg - Trace); Urine Bilirubin Negative (Negative); Urine Character Clear (Clear); Urine Color Yellow; Urine Glucose Negative (Negative); Urine Ketone Negative (Negative); Urine Leukocyte Negative (Negative); Urine Nitrite Negative (Negative); Urine Occult Blood Negative (Negative); Urine Specific Gravity 1.025 (<1.030); Urine Urobilinogen Negative (Neg - 1+)
--- NOTE | 2024-02-19 08:56 | CM ---
Reviewed chart. Mr. Goel is in the operating room today. Prior to admission he resides with his spouse in a two story home with three steps to enter. Prior to admission he was independent with ambulation and adls. He jacinto not have any DME in the
home. He has a prescription plan and uses [facility]. If he needs [facility] Services will need to see if they is a [place] [facility] that will take the referral with a PA. PCP. Medical work-up in progress. The discharge plan is to return
home with his spouse and VNA Services if indicated and a agency can be found to accept the case when medically stable.
[2024-02-19 09:22] LABS: ACT+ - POC 433 Seconds (82-134)
[2024-02-19 09:33] LABS: ACT+ - POC 469 Seconds (82-134)
[2024-02-19 09:44] LABS: ACT+ - POC 507 Seconds (82-134)
[2024-02-19 10:13] LABS: B.E. - POC 3.4 mmol/L; Glucose - POC 102 mg/dl (70-99); HCO3 - POC 29 mmol/L (21-28); Hematocrit - POC 35 % PCV (42-52); Hemodilution- POC Yes; Ionized Calcium - POC 1.11 mmol/L (1.15-1.33); PCO2 - POC 46 mmHg (35-48); PO2 - POC 388 mmHg (83-108); POC Comment CPB; Sodium - POC 140 mmol/L (136-145); Specimen Type - POC Arterial; pH - POC 7.41 (7.35-7.45)
[2024-02-19 10:19] LABS: ACT+ - POC 479 Seconds (82-134)
[2024-02-19 10:37] LABS: Glucose - POC 150 mg/dl (70-99); HCO3 - POC 27 mmol/L (21-28); Hematocrit - POC 34 % PCV (42-52); Hemodilution- POC Yes; Hemoglobin Calculated - POC 11.6; Ionized Calcium - POC 1.06 mmol/L (1.15-1.33); O2 Saturation %Calculated-POC 99.8 % (94-98); PCO2 - POC 41 mmHg (35-48); PO2 - POC 213 mmHg (83-108); POC Comment CPB; Potassium - POC 4.9 mmol/L (3.5-5.1); Sodium - POC 140 mmol/L (136-145); Specimen Type - POC Arterial; pH - POC 7.42 (7.35-7.45)
[2024-02-19 10:46] LABS: ACT+ - POC 520 Seconds (82-134)
[2024-02-19 11:11] LABS: B.E. - POC 0.7 mmol/L; Glucose - POC 196 mg/dl (70-99); HCO3 - POC 26 mmol/L (21-28); Hematocrit - POC 38 % PCV (42-52); Hemodilution- POC Yes; Hemoglobin Calculated - POC 13.1; Ionized Calcium - POC 1.06 mmol/L (1.15-1.33); O2 Saturation %Calculated-POC 99.6 % (94-98); PCO2 - POC 41 mmHg (35-48); PO2 - POC 180 mmHg (83-108); POC Comment REWARM; Potassium - POC 4.9 mmol/L (3.5-5.1); Sodium - POC 142 mmol/L (136-145); Specimen Type - POC Arterial; pH - POC 7.41 (7.35-7.45)
[2024-02-19 11:20] LABS: ACT+ - POC 460 Seconds (82-134)
[2024-02-19 11:29] LABS: B.E. - POC 0.5 mmol/L; Glucose - POC 223 mg/dl (70-99); HCO3 - POC 26 mmol/L (21-28); Hematocrit - POC 35 % PCV (42-52); Hemodilution- POC Yes; Ionized Calcium - POC 1.07 mmol/L (1.15-1.33); O2 Saturation %Calculated-POC 99.7 % (94-98); PCO2 - POC 43 mmHg (35-48); PO2 - POC 198 mmHg (83-108); POC Comment WARM; Potassium - POC 4.7 mmol/L (3.5-5.1); Sodium - POC 141 mmol/L (136-145); Specimen Type - POC Arterial; pH - POC 7.39 (7.35-7.45)
[2024-02-19 11:36] LABS: ACT+ - POC 115 Seconds (82-134)
[2024-02-19 11:40] LABS: B.E. - POC -1.1 mmol/L; Glucose - POC 199 mg/dl (70-99); HCO3 - POC 24 mmol/L (21-28); Hematocrit - POC 33 % PCV (42-52); Hemodilution- POC Yes; Hemoglobin Calculated - POC 11.4; Ionized Calcium - POC 1.36 mmol/L (1.15-1.33); O2 Saturation %Calculated-POC 99.9 % (94-98); PCO2 - POC 39 mmHg (35-48); PO2 - POC 305 mmHg (83-108); POC Comment POST; Potassium - POC 3.6 mmol/L (3.5-5.1); Sodium - POC 142 mmol/L (136-145); Specimen Type - POC Arterial; pH - POC 7.39 (7.35-7.45)
--- NOTE | 2024-02-19 12:06 | W.IMMPOSTOP ---
Addendum entered and electronically signed by Hi Allen MD 02/19/24 12:49:
[id number]
Original Note:
Surgical Immed Post Op Note
-
CARDIAC SURGERY OPERATIVE NOTE:
Preoperative Dx:
MVCAD
Reduced LVEF (40-45%)
Postoperative Dx:
Same
LVEF improved
Procedures:
1) Median sternotomy
2) Takedown of OSEAS (narrow pedicle)
3) Endoscopic harvest/prep of RLE GSV
4) CABG x 3 (OSEAS to LAD, GSV to D2, GSV to RPDA)
Surgeon:
Hi Allen M.D.
Assistants:
Charlotte CabanAFaith-CFaith; business assistant throughout
Charlotte OrtizAFaith-CFaith; endoscopic harvest/prep of RLE GSV; hbrcil-nlrh-apih closure of sternotomy
Anesthesia:
Luis Angel Jimenez M.D. and
Perfusion:
Taco HutchinsCFaithPFaith; XC: 71min, CPB: 103min
Findings:
OSEAS was healthy conduit w/ brisk blood flow; ELD 2.5mm
GSV was healthy conduit w/ ELD 2.5-3.0mm
LAD was visible on the epicardial surface, it was profoundly calcified over its medial course, spot ammenable to bypass identified in distal third w/ reasonable ELD 2.5mm w/ calcifications of posterior vessel at the level of the anastomosis
D2 was visible on the epicardial surface w/ ELD 2.5mm; minor scattered calcifications
RPDA was visible on the epicardial surface w/ ELD 2.25mm; normal dahl at anastomotic site
Excellent flow in all grafts on intraoperative transit-time U/S flow probe assessment both pre- and post-protamine
Post-BEVERLY: RV and LV function appear more vigorous. Overall LVEF is now approximately 50-55% with continued hypokinesis of the basal to mid inferior wall segments (albeit better motion than preop). TV, AV, and PV function appear normal. Trace to
mild central MR is unchanged. Aortic scan is unchanged.
Implants:
CT x 3 (L pleural, inferior mediastinal, superior mediastinal)
Sternal wires x 10
Transfusions:
None
Complications:
None
Condition:
71 isoelectric sinus (0.2/-0.4), 108/54, 26/14, CVP 7, 99% CO/CI: 3.9/1.8
GTTS: levophed 3, precedex 0.5, insulin 3.5
Stable/guarded to CVICU
--- NOTE | 2024-02-19 12:33 | W.PN.UPDATE ---
Update Note
Progress Note Update
63-year-old male was electively admitted on 02/19/2024 for CABG due to two-vessel coronary disease.
IV fluids: 1800
U.O.:� 475
Blood:� none
Wires:� none
Inotropes:� none
Pressors:� Levophed @ 4
Sedatives:� Precedex @ 0.5
�
NEURO: sedated, pupils +2mm B/L
RESP: #8OT @24cm> 500/60%/14/5. Lungs clear B/L. 2 mediastinal (0cc on arrival) and R pleural (5cc on arrival) chest tubes to -20cm suction. Sanguineous drainage
CV: RRR +S1, S2, no S3, no�rub, no murmur. Aquacell to median sternotomy. RIJ w/[place] locked @ 48cm. PA 24/12; CVP 8; C.O 4.27/CI 1.97
ABD: round, soft, no BS
EXT: no edema, +2/4 DP pulses B/L, no femoral bruit, RLE ANGELES wrap intact; left radial A-line intact
: [place] with clear yellow urine
�
A/P: POD #0 s/p CABG x 3 PRESCOTT-LAD; SVG-diag2, SVG-RPDA
BEVERLY: EF�43% (pre) to 50-55% post procedure
- wean and extubate
- will need instruction regarding antibiotic prophylaxis for dental and invasive procedures
# CAD
- will require ASA/Plavix, statin/Zetia, beta-shalonda
# acute surgical blood loss anemia-expected
- trend CBC
�
# T1DM (A1C 7.2)
- insulin infusion x 48h
- resume home insulin pump after infusion DC'd
- resume ACEi on DC
�
[2024-02-19] MEDS: NSS 500 IV (12:45)
[2024-02-19 12:54] LABS: Glucose - Point of Care 163 mg/dl (70-99)
[2024-02-19 12:55] LABS: B.E. 1.1 mmol/L; HCO3 26.6 mmol/L (21-28); Ionized Calcium 1.23 mMOL/L (1.15-1.33); O2 Saturation % 97.9 % (94-98); PCO2 45 mmHg (35-48); PO2 90 mmHg (83-108); Sodium 135 mMOL/L (136-145); pH 7.38 (7.35-7.45)
[2024-02-19 13:00] LABS: Hematocrit 33.9 % (39.0-52.0); Hemoglobin 11.5 g/dL (13.0-18.0); Platelet Count 305 10^3/uL (130-400)
[2024-02-19 13:12] LABS: APTT 28.8 Sec (23.4-35.0); Blood Urea Nitrogen 14 mg/dl (9-20); Estimated Creatinine Clearance 120 ml/min; Glucose 166 mg/dl (70-99); INR 1.33; Magnesium 2.6 mg/dl (1.6-2.3); PT 16.8 Sec (11.4-14.6)
--- NOTE | 2024-02-19 13:30 | PTCARENOTE ---
Pt received from CVOR; Sedated and intubated; Pupils round, reactive, and equal; NS rhythm on monitor; VSS; DP and radial pulses present; Lungs clear/diminished/crackles; ETT size 8 positioned and secured at24 cm right lip; Ventilator settings SIMV
14/500/5 FiO2 40% ; CTx3 to -20 cm wall suction draining bloody drainage - no air leak, tidaling, or crepitus noted; Hypoactive BS; [place] catheter in place draining yellow urine; Sternal Midline Incision CDI /R Leg wrapped in Dmitriy wrap - CDI; No
Edema present; A-line in left radial artery - line zeroed and level; Jesse present in right Cordis; R forearm 18 PIV WNL; Levo/insulin/precedex infusing; CXR done at bedside ; PA at bedside no changes made See nursing flowsheets for further details.
CO: 4.25
CI: 1.97
SVR: 978
[2024-02-19 14:03] LABS: Glucose - Point of Care 147 mg/dl (70-99)
[2024-02-19 15:01] LABS: Glucose - Point of Care 116 mg/dl (70-99)
[2024-02-19 15:44] LABS: B.E. 1.2 mmol/L; O2 Saturation % 98.3 % (94-98); PCO2 41 mmHg (35-48); PO2 87 mmHg (83-108); pH 7.41 (7.35-7.45)
[2024-02-19] MEDS: DILAUDID 0.5 MG IV (16:04)
[2024-02-19] MEDS: NOVOLOG FLEXPEN SC ×2 (16:12→17:59)
--- NOTE | 2024-02-19 16:13 | W.PN.CARDCBS ---
Addendum entered and electronically signed by Stan Kirkland MD 02/19/24 16:31:
I saw and examined the patient.
The MICROBIOLOGY QUALITY CONTROL TECHNICIAN or PA's note was reviewed and I agree with the note.
Comment: General: Sedated and intubated
Neck: Supple, no JVD, HJR, carotids +2 B/L, no bruits bilaterally.
Heart: Non displaced PMI, RRR, no murmurs, No S3, S4, no rubs.
Lungs: Scattered rhonchi
Sternal dressings noted
Extremities: No clubbing, cyanosis or edema bilaterally.
Neuro: Sedate
Stable cardiology status status post CABG. On no pressors at present. Remains in sinus rhythm. Hopefully extubate later today.
Original Note:
Today's Communication / Plan
-
No acute ischemic changes on ECG post-op
Impression / Plan
-
PCP: Sue DA SILVA
Rn New Graduate: Dr. Kirkland
Impression:
CAD s/p CABG with PRESCOTT to LAD, SVG to Diag-2 and SVG to RPDA 02/19/24
CAD
Inferior myocardial infarction with BMS to mid right coronary artery 2001
sequential proximal, mid and distal LAD stenosis, occluded mid right coronary by cath 01/24/24
Recent admission for RLL PNA and MV CAD 02/09/24 until 02/13/24
DM 2
Hypertension
Hypercholesterolemia
Degenerative disc disease
Echo 01/24/2024: mildly dilated left ventricle, low normal systolic function, thin akinetic inferior wall, inferolateral hypokinesis, EF is 50-55%, normal RV, normal atria, trace MR, normal aortic valve, could not determine pulmonary artery systolic
pressure
[facility] intra-op 02/19/24: Preop EF 43% with severe hypokinesis noted in the basal to mid inferior wall segments . Postop images show the RV and LV to be more vigorous, LVEF 50 to 55% with continued hypokinesis of the basal to mid inferior wall segments
Plan:
-Patient had an elective LHC on 01/24/2024 due to chest pain and was found to have MV CAD. Patient saw CT surgery in the office 01/30/24 and was recommended CABG to which he agreed. Patient then admitted to 02/09/24 until 02/13/24 with PNA and
found to have elevated Troponin which prompted cardiac cath that revealed MV CAD. Patient was treated for PNA and then d/c'd to home. He returns 02/19/24 and denies any chest pain and is now seen post-op in CVICU.
-Levo at 4
-Post-op ECG reviewed by me looks like RBBB and T wave inversion which is stable and maybe a bit better than ECG last week.
-Patient was not taking Plavix prior to admission and Troponin elevation last admission was managed as a nonischemic myocardial injury Troponin elevation.
-Cont aspirin 81 mg daily.
-Patient was taking Toprol XL 25 mg daily prior to admission and will transition to Lopressor post-op
-Outpatient dose of lisinopril 5 mg daily is on hold post-op
-LDL 37 on 02/10/24. Outpatient doses of Crestor 40 mg daily and Zetia 10 mg daily set to resume
Progress Note - Rn New Graduate
Subjective
Date of Service: February 19, 2024
Sedated post-op
Objective
Labs:
02/19/24 12:42
Labs
Hgb 11.5 g/dL (13.0-18.0) L 02/19/24 12:42
Hct 33.9 % (39.0-52.0) L 02/19/24 12:42
Plt Count 305 10^3/uL (130-400) D 02/19/24 12:42
PT 16.8 Sec (11.4-14.6) H 02/19/24 12:42
INR 1.33 02/19/24 12:42
APTT 28.8 Sec (23.4-35.0) 02/19/24 12:42
Sodium 135 mmol/L (135-145) 02/15/24 12:23
Potassium 4.8 mmol/L (3.5-5.1) 02/15/24 12:23
BUN 14 mg/dl (9-20) 02/19/24 12:42
Creatinine 0.7 mg/dL (0.7-1.3) 02/19/24 12:42
Glucose 166 mg/dl (70-99) H 02/19/24 12:42
Vital Signs and I&O:
Vital Signs
Temp Pulse Resp BP Pulse Ox
98.2 F 70 13 159/69 96
02/19/24 15:14 02/19/24 15:00 02/19/24 15:00 02/19/24 05:20 02/19/24 16:01
Vital Signs
Temp Pulse Resp BP Pulse Ox
98.2 F 70 13 159/69 96
02/19/24 15:14 02/19/24 15:00 02/19/24 15:00 02/19/24 05:20 02/19/24 16:01
Intake & Output
02/17/24 02/18/24 02/19/24 02/20/24
06:59 06:59 06:59 06:59
Intake Total 325.3 / 325.3
Output Total 295 / 295
Balance 30.3 / 30.3
Physical Exam
Physical Exam
GEN: Intubated and sedated post-op
HEENT: MMM
LUNGS: Intubated and on the ventilator
CV: SR on tele
ABD: ND
EXT: No edema B/L
NEURO: Sedated
SKIN: No rash
[2024-02-19 16:18] LABS: Glucose - Point of Care 107 mg/dl (70-99)
--- NOTE | 2024-02-19 16:23 | PTCARENOTE ---
PT extubated 1600 to 6L NC, IS 500, see worklist for detailed assessment
--- NOTE | 2024-02-19 16:52 | CON.INTV ---
Consultation
Consultation Request
Date/Time Consultation Requested: 02/19/24
Date/Time Consultation Performed: 02/19/24
Performing Provider: Eliseo
Reason for Consultation: CVICU
Medical History
-
History of Present Illness:
Patient is a 63-year-old male with previous history of CAD, diabetes, hypercholesterolemia presenting for elective cardiac surgery. He has prior history of CAD status post cardiac catheterization and imaging with evaluation for benefit from
surgical coronary revascularization. Underwent procedure today without complications and perioperatively transferred to CVICU for further management. He was extubated without difficulty. He has former smoking history of 25 pack years, quit in
2001. His notes that he has a history of obstructive sleep apnea but does not wear CPAP machine.
Past Medical History
Past Medical History: Other (see list below)
Social History
Tobacco: Former Smoker
Alcohol: None
Drug: None
Family History
Family History: Reviewed & Not Pertinent
Allergies / Home Medications
Allergies
Allergy/AdvReac Type Severity Reaction Status Date / Time
No Known Allergies Allergy Verified 02/19/24 06:09
Home Medications
�Medication �Instructions �Recorded �Confirmed �Last Taken �Type
cholecalciferol (vitamin D3) 50 50 mcg PO DAILY Supplement 01/24/24 02/19/24 02/12/24 08:00 History
mcg (2,000 unit) tablet (Vitamin
D3)
ezetimibe 10 mg tablet 10 mg PO DAILY High Cholesterol 01/24/24 02/19/24 02/18/24 08:00 History
folic acid 400 mcg tablet 0.4 mg PO DAILY Supplement 01/24/24 02/19/24 02/12/24 08:00 History
lisinopril 5 mg tablet 5 mg PO DAILY Blood Pressure 01/24/24 02/19/24 02/16/24 08:00 History
metoprolol succinate 25 mg 25 mg PO DAILY Blood Pressure 01/24/24 02/19/24 02/18/24 08:00 History
tablet,extended release 24 hr
nitroglycerin 0.4 mg sublingual 0.4 mg sublingual [id number] PRN 01/24/24 02/12/24 Unknown Rx
tablet chest pain #25 tabs
rosuvastatin 40 mg tablet 40 mg PO DAILY High Cholesterol 01/24/24 02/19/24 02/18/24 08:00 History
Patient's Own Insulin Pump 1 sliding scale dose SC AC Diabetes 02/09/24 02/19/24 02/19/24 06:13 History
aspirin 81 mg capsule 81 mg Blood Clot Prevention/Tx 02/12/24 02/18/24 08:00 History
isosorbide mononitrate 30 mg 30 mg PO BID Blood Pressure 02/12/24 02/19/24 02/16/24 08:00 History
tablet,extended release 24 hr
cefdinir 300 mg capsule 300 mg PO BID Infection 02/19/24 Unknown History
doxycycline hyclate 100 mg capsule 100 mg PO BID Infection 02/19/24 Unknown History
furosemide 20 mg tablet (Lasix) 20 mg PO DAILY Fluid 02/19/24 02/19/24 02/18/24 08:00 History
Retention/Swelling
vitamin [id number] factor 3,000 mcg PO DAILY Supplement 02/19/24 02/19/24 02/12/24 08:00 History
Review of Systems
-
History Source: Patient
All other systems: Negative unless noted
Vitals / Labs / Diagnostic Testing
Vital Signs
Temp Pulse Resp BP Pulse Ox
98.9 F 76 18 159/69 97
02/19/24 16:22 02/19/24 16:22 02/19/24 16:22 02/19/24 05:20 02/19/24 16:22
Lab Data
02/19/24 12:42
Laboratory Results
02/19/24 02/19/24
12:42 15:35
PT 16.8 H
INR 1.33
APTT 28.8
pH 7.38 7.41
pCO2 45 41
pO2 90 87
HCO3 26.6 26.0
O2 Delivery Level
Microbiology
02/15/24 12:23 Nose MRSA Screen - Final
No Methicillin Resistant Staphylococcus aureus isolated.
Diagnostic Testing:
Physical Exam
-
HEENT: Normocephalic, Anicteric and Moist Mucous Membranes
Cardiovascular: S1/S2 and Regular Rhythm
Respiratory: Clear, Non-Labored Respirations and Other (extubated. chest tubes in place)
GI: Soft, Non Distended and Non Tender
Neurology: Other (lethargic, sleeping, witnessed snoring)
Skin: Warm, Dry and Good Color
General: Comfortable and Other (NAD)
Assessment
-
Patient is a 63-year-old male with previous history of CAD, diabetes, hypercholesterolemia presenting for elective cardiac surgery. He has prior history of CAD status post cardiac catheterization and imaging with evaluation for benefit from
surgical coronary revascularization. Underwent procedure today without complications and perioperatively transferred to CVICU for further management. He was extubated without difficulty. He has former smoking history of 25 pack years, quit in
2001. His notes that he has a history of obstructive sleep apnea but does not wear CPAP machine.
MVCAD status post CABG x 3 02/19/2024
Perioperative mechanical ventilation
Perioperative anemia, mild
Conditions present prior to admission
Gastro-esophageal reflux disease without esophagitis
Type 1 diabetes mellitus with hyperglycemia
Pure hypercholesterolemia
Presence of coronary angioplasty implant and graft
Atherosclerotic heart disease of [place] coronary artery without angina pectoris
Esophageal dysphagia
Essential (primary) hypertension
Ischemic cardiomyopathy, history of [place]
Male erectile dysfunction
RADHA not on CPAP
Former smoker, 25 pack years
Plan
S/p CAB POD #0
Titrate off pressors per protocol
ECHO reviewed with low function- h/o ICM
PA catheter readings reviewed
Management of chest tubes per primary service
Pain control
RASS goal of 0 to -1
Intubated for procedure, extubated and doing well
ABG(s) reviewed/adequate
CXR with no obvious opacities/infiltrates, low lung volumes, ETT in good position, lines/tubes in place
Extubate per protocol
Maintain supplement oxygen as needed
No prior history of pulmonary disease, former smoker
Prior PFTs reviewed--normal
Has history of RADHA, can add on CPAP if needed, noncompliant
Can add nebulizers if needed
Aspiration precautions
Encouraged incentive spirometry, OOB/ambulation/early mobility
Advance diet as tolerated following extubation
GI prophylaxis if indicated for mechanical ventilation >48 hours
Monitor critical I/O's
Menchaca/chest tube output
Hb/platelets postoperatively stable
Trend CBC for now
Can transfuse if indicated for Hb <7, plt <50 in surgical patients
DVT prophylaxis including SCDs
Insulin protocol initiated and ongoing
Transition to SQ/off as indicated per team
We will follow
Diagnostic Data
Chest X-Ray: 02/19/24- 1. Endotracheal tube, pulmonary arterial catheter, and left chest tube in place following CABG surgery.
2. Mildly decreased bilateral lung volumes with mild subsegmental atelectasis in the lower lungs.
3. Mild cardiomegaly.
CT Scan: CHEST 02/09/24- 1. No evidence of central or segmental pulmonary embolism.
2. There is a consolidation with air bronchograms in the right lower lobe as well as additional scattered nodular consolidations with surrounding groundglass opacities which are favored to represent multifocal pneumonia.
3. There is mild prominence of the mediastinal and hilar lymph nodes which is likely reactive in nature.
Echo: [facility] 02/19/24- Overall LVEF calculates to 43% by Klein's rule. Severe hypokinesis noted in the basal to mid inferior wall segments. Left ventricle is mildly dilated. Mildly dilated left atrium.
Mildly dilated right atrium. Trace to mild mitral regurgitation. MV annulus is mildly dilated. Mild sessile atheroma seen in the descending aorta and distal arch.
[facility] 01/24/24- 1. Significant two-vessel coronary artery disease involving the LAD and dominant right coronary artery.
2. Elevated LVEDP at 25 mmHg.
PFT's: Spirometry 02/15/24-FEV1/FVC: 82 / 108% predicted. FEV1: 3.67L / 95%. FVC: 4.47L / 87%.
Reports and relevant images were personally reviewed.
Critical Care time 51 mins -- The patient is admitted for acute critical illness for the treatment of vital organ failure and/or prevention of further life-threatening conditions. Total care includes time spent in review of history, physical exam,
medications, hemodynamic/ventilator parameters, laboratory data, imaging and discussion with house staff, pharmacy, respiratory therapy, pest control supervisor, and nursing.
[2024-02-19 16:59] LABS: Hematocrit 34.7 % (39.0-52.0); Hemoglobin 11.6 g/dL (13.0-18.0); Platelet Count 331 10^3/uL (130-400)
[2024-02-19 17:07] LABS: Glucose - Point of Care 96 mg/dl (70-99)
[2024-02-19] MEDS: NEURONTIN PO (17:58)
[2024-02-19] MEDS: NEURONTIN 100 MG PO ×2 (17:58→21:58)
[2024-02-19] MEDS: LOW STRENGTH ASPIRIN 81 MG PO (17:58)
[2024-02-19] MEDS: PACERONE 200 MG PO ×2 (17:58→21:57)
--- NOTE | 2024-02-19 18:24 | PTCARENOTE ---
no change from previous assessment
[2024-02-19] MEDS: TYLENOL 1000 MG PO (18:29)
[2024-02-19] MEDS: CRESTOR 40 MG PO (18:29)
[2024-02-19] MEDS: ZETIA 10 MG PO (18:29)
[2024-02-19] MEDS: ZOFRAN 4 MG IV (19:57)
[2024-02-19] MEDS: ANCEF 5 IV (19:57)
[2024-02-19 20:02] LABS: Glucose - Point of Care 189 mg/dl (70-99)
[2024-02-19] MEDS: CALCIUM GLUCONATE 100 IV (20:08)
[2024-02-19 21:03] LABS: Glucose - Point of Care 164 mg/dl (70-99)
--- NOTE | 2024-02-19 21:22 | PTCARENOTE ---
assumed care of patient @ 1900. received pt laying in bed, AOx3. NSR on tele, +pulses, -E. Loud rub. BP stable off levo. Lungs clear, diminished satting mid 90s on 2L. IS encouraged, ~500. 3 CT present to wall suction, no air leak, tidaling or
crepitus noted. BS hypoactive, had some nausea at change of shift relieved with zofran. otherwise tolerating small chips. forbes present draining clear yellow urine. MSI with dressing CDI, R leg baudilio wrapped. R IJ cordis with swan, L A line, PIV l
forearm all patent. central lines zeroed and flushed. PAP 20s/10s, CVP ~ 5. on insulin per protocol. call kearns within reach .
[2024-02-19] MEDS: SENOKOT-S 1 TABLET PO (21:58)
--- NOTE | 2024-02-19 22:08 | PTCARENOTE ---
CTPA notified of frequent PVCs. will give 2200 amio as scheduled and monitor
[2024-02-19 23:01] LABS: Glucose - Point of Care 143 mg/dl (70-99)
[2024-02-20] VITALS (33 sets, daily range): BP systolic 106–211; BP diastolic 43–119; PULSE 81; O2SAT 97–99; BMI 27.2
--- NOTE | 2024-02-20 | PTCARENOTE ---
PT resting comfortably, no change in assessment .
[2024-02-20] MEDS: TYLENOL 1000 MG PO ×4 (00:49→21:22)
[2024-02-20] MEDS: ROXICODONE 5 MG PO ×4 (00:49→21:22)
[2024-02-20 00:58] LABS: Glucose - Point of Care 146 mg/dl (70-99)
--- NOTE | 2024-02-20 02:30 | PTCARENOTE ---
pt having intermittent bradycardia, going back and forth between HR 50s and 90s NSR. CTPA notified. asymptomatic
[2024-02-20 03:19] LABS: Glucose - Point of Care 131 mg/dl (70-99)
[2024-02-20 03:44] LABS: Blood Urea Nitrogen 19 mg/dl (9-20); Calcium 8.1 mg/dl (8.4-10.2); Carbon Dioxide 27 mmol/L (22-30); Chloride 103 mmol/L (98-107); Estimated Creatinine Clearance 120 ml/min; Glucose 135 mg/dl (70-99); Potassium 4.8 mmol/L (3.5-5.1); Sodium 137 mmol/L (135-145); eGFR > 60.00
--- NOTE | 2024-02-20 03:44 | W.PN.CT ---
Today's Communication / Plan
-
Plan:
-No major issues overnight. Hemodynamically and neurologically intact
-Pt successfully extubated yesterday 02/19/24 @ 1555
-Weaned off Levophed last night, remains on insulin gtt per protocol
-Last CI 2.94, U/O since OR 960 mL
-Monitor chest tube output: 2meds 60/130, L pleural 70/125
-AM cxr looks clear, no ptx, mild atelectasis on my review. F/U official report
-HR appears to be fluctuating between 90's and 60's with PVC's and new RBBB. HR 47-50 preop. Cardiology to comment on Amiodarone and BB moving forward. Amiodarone currently on hold
-Cont. current meds (ASA, Plavix, Crestor, Amiodarone-on hold, Toprol XL)
-D/C'd swan and a-line @ 0415
-D/C'd forbes catheter @ 0600
-Transfer to tele phase tomorrow when off insulin gtt per protocol. Diabetes education/management consult (DM on insulin pump @ home, A1C 7.2)
-Maintain cordis
-No PW
-Wean off of O2 as tolerated
-Encourage use of IS
-OOB into chair/Ambulate
Assessment / Plan
-
Assessment:
-S/P Median sternotomy/ CABG x 3 (OSEAS to LAD, GSV to D2, GSV to RPDA)/Endoscopic harvest/prep of RLE GSV, by Dr. Allen, 02/19/24, pod#1
-Multivessel CAD
-NSTEMI (trop 0.16)
-[place]
-Hx Inf. SC S/P PCI with BMS to mid RCA, 2001
-Hx Ischemic CM, recovered
-LVEF 43% per intraop [facility], improved to 50-55% postop
-Mild-trace MR, per intraop B[facility]
-Bradycardia
-Recent RLL pneumonia, 02/09/24
-Former tobacco use (25 pk/yrs, quit 11/2001)
-HTN
-HLD
-T2DM (on insulin pump, hgb A1C 7.2)
-S/P Colonoscopy with polypectomy x 5, 01/03/23
-S/P Left leg ORIF (odilon)
-S/p L4/5/S1 Laminectomy, 25 years ago
-S/p Appendectomy
-Acute postop blood loss/Anemia (stable without blood transfusion)
-Acute postop atelectasis
-Acute postop hypovolemia with subsequent hypervolemia
-Acute postop PVC's
-Acute postop new RBBB
Discussed patient care with: Cardiology, Nursing, Respiratory Therapy, Pharmacy and Care Team
Subjective
Procedure
S/P Median sternotomy/ CABG x 3 (OSEAS to LAD, GSV to D2, GSV to RPDA)/Endoscopic harvest/prep of RLE GSV, by Dr. Allen, 02/19/24
-
Date of Service: February 20, 2024
Pt c/o incisional pain, otherwise feels well
Objective Data
-
PT 16.8 Sec (11.4-14.6) H 02/19/24 12:42
INR 1.33 02/19/24 12:42
APTT 28.8 Sec (23.4-35.0) 02/19/24 12:42
Vital Signs
Vital Signs
Temp Pulse Resp BP Pulse Ox
99.0 F 82 13 123/68 98
02/20/24 03:00 02/20/24 03:15 02/20/24 03:15 02/20/24 03:00 02/20/24 03:15
CT Intake/Output/Weight
02/19/24 02/19/24 02/20/24
06:59 18:59 06:59
Intake Total 664.7 / 853.4 188.7 / 853.4
Output Total 540 / 1035 495 / 1035
Balance 124.7 / -181.6 -306.3 / -181.6
SaO2: 98 (2L)
Physical Exam
-
General: Awake, Oriented and AOx3
Cardiovascular: Regular rate & rhythm, No Murmurs, Rub (likely friction rub from chest tubes) and No Gallop
Respiratory: Decreased Breath Sounds (at bases, otherwise clear)
Sternum: Stable
Incision: Clean, Dry, Intact and Dressing Intact
Extremities: Other (+trace edema)
Data Reviewed
-
Lab Results: Results Reviewed
Medications: Active Meds Reviewed
Chest X-Ray: Report Reviewed and Image Reviewed
ECG: Report Reviewed and Image Reviewed
[2024-02-20 03:46] LABS: Hematocrit 33.5 % (39.0-52.0); Hemoglobin 11.1 g/dL (13.0-18.0); Mean Corp Hgb Conc. 33.1 g/dL (33.0-37.0); Mean Corpuscular Hgb 31.1 pg (27.0-31.0); Mean Corpuscular Volume 93.8 fL (80.0-94.0); Mean Platelet Volume 9.1 fL (7.4-10.4); Platelet Count 320 10^3/uL (130-400); Red Blood Cell Count 3.57 10^6/uL (4.70-6.10); Red Cell Dist. Width 12.6 % (11.5-14.5); White Blood Cell Count 20.8 10^3/uL (4.8-10.8)
[2024-02-20 04:49] LABS: Glucose - Point of Care 143 mg/dl (70-99)
[2024-02-20] MEDS: ANCEF 5 IV ×2 (04:49→11:55)
--- NOTE | 2024-02-20 07:03 | PTCARENOTE ---
giorgio and A line removed per order. forbes pulled. pt assisted up to scale and to chair with steady gait. resting comfortably in chair with call kearns within reach .
--- NOTE | 2024-02-20 07:13 | W.PN.INTV ---
Today's Communication / Plan
Recommendations
Doing well post extubation, no events ON
Remains on IV insulin, likely transition tomorrow
Encouraged OOB, IS, PT--in chair this AM
Minimal pain, continue regiment
Further postop mngmt per team
Assessment
-
Patient is a 63-year-old male with previous history of CAD, diabetes, hypercholesterolemia presenting for elective cardiac surgery. He has prior history of CAD status post cardiac catheterization and imaging with evaluation for benefit from
surgical coronary revascularization. Underwent procedure today without complications and perioperatively transferred to CVICU for further management. He was extubated without difficulty. He has former smoking history of 25 pack years, quit in
2001. His notes that he has a history of obstructive sleep apnea but does not wear CPAP machine.
MVCAD status post CABG x 3 02/19/2024
Perioperative mechanical ventilation
Perioperative anemia, mild
Conditions present prior to admission
Gastro-esophageal reflux disease without esophagitis
Type 1 diabetes mellitus with hyperglycemia
Pure hypercholesterolemia
Presence of coronary angioplasty implant and graft
Atherosclerotic heart disease of [place] coronary artery without angina pectoris
Esophageal dysphagia
Essential (primary) hypertension
Ischemic cardiomyopathy, history of [place]
Male erectile dysfunction
RADHA not on CPAP
Former smoker, 25 pack years
Plan
S/p CAB POD #1
Off pressors per protocol
ECHO reviewed with low function- h/o ICM
PA catheter discontinued
Management of chest tubes per primary service
Pain control
RASS goal of 0 to -1
Intubated for procedure, extubated 02/19/24 and doing well
ABG(s) reviewed/adequate
CXR with stable post op changes
Maintain supplement oxygen as needed
No prior history of pulmonary disease, former smoker
Prior PFTs reviewed--normal
Has history of RADHA, can add on CPAP if needed, noncompliant
Can add nebulizers if needed
Aspiration precautions
Encouraged incentive spirometry, OOB/ambulation/early mobility
Advance diet as tolerated following extubation
GI prophylaxis if indicated for mechanical ventilation >48 hours
Monitor critical I/O's
Menchaca/chest tube output
Hb/platelets postoperatively stable
Trend CBC for now
Can transfuse if indicated for Hb <7, plt <50 in surgical patients
DVT prophylaxis including SCDs
Insulin protocol initiated and ongoing
Transition to SQ/off as indicated per team
Diagnostic Data
Chest X-Ray: 02/19/24- 1. Endotracheal tube, pulmonary arterial catheter, and left chest tube in place following CABG surgery.
2. Mildly decreased bilateral lung volumes with mild subsegmental atelectasis in the lower lungs.
3. Mild cardiomegaly.
CT Scan: CHEST 02/09/24- 1. No evidence of central or segmental pulmonary embolism.
2. There is a consolidation with air bronchograms in the right lower lobe as well as additional scattered nodular consolidations with surrounding groundglass opacities which are favored to represent multifocal pneumonia.
3. There is mild prominence of the mediastinal and hilar lymph nodes which is likely reactive in nature.
Echo: [facility] 02/19/24- Overall LVEF calculates to 43% by Klein's rule. Severe hypokinesis noted in the basal to mid inferior wall segments. Left ventricle is mildly dilated. Mildly dilated left atrium.
Mildly dilated right atrium. Trace to mild mitral regurgitation. MV annulus is mildly dilated. Mild sessile atheroma seen in the descending aorta and distal arch.
[facility] 01/24/24- 1. Significant two-vessel coronary artery disease involving the LAD and dominant right coronary artery.
2. Elevated LVEDP at 25 mmHg.
PFT's: Spirometry 02/15/24-FEV1/FVC: 82 / 108% predicted. FEV1: 3.67L / 95%. FVC: 4.47L / 87%.
Reports and relevant images were personally reviewed.
Critical Care time 31 mins -- The patient is admitted for acute critical illness for the treatment of vital organ failure and/or prevention of further life-threatening conditions. Total care includes time spent in review of history, physical exam,
medications, hemodynamic/ventilator parameters, laboratory data, imaging and discussion with house staff, pharmacy, respiratory therapy, door cutter, and nursing.
Subjective Dataa
Subjective Data
Date of Service:
Date of Service: February 20, 2024
Chief Complaint: Collar Fuser Follow Up
Subjective:
Doing well today, remains extubated, no events ON
On IV insulin
Objective Data
Data Reviewed
Vital Signs / I&O / Oxygen:
Vital Signs
Temp Pulse Resp BP Pulse Ox
99.0 F 82 24 132/63 94
02/20/24 04:00 02/20/24 06:45 02/20/24 06:45 02/20/24 06:00 02/20/24 06:45
Intake and Output
02/19/24 02/20/24 02/21/24
06:59 06:59 06:59
Intake Total 900.5 / 900.5
Output Total 1165 / 1165
Balance -264.5 / -264.5
SaO2 94
Nasal Cannula flow liters per 2
minute
Physical Exam
General: Comfortable and Other (NAD)
HEENT: Normocephalic, Anicteric and Moist Mucous Membranes
Cardiovascular: S1-S2 and Regular Rhythm
Respiratory: Clear, Non-Labored Respirations and Chest Tube
GI: Soft, Non Distended and Non Tender
Neurology: Awake, Alert, Oriented and No Motor Deficits
Skin: Warm, Dry and Good Color
Labs/Micro/Reports
Lab Data
02/20/24 03:18
02/20/24 03:17
Laboratory Results
02/19/24 02/19/24
12:42 15:35
PT 16.8 H
INR 1.33
APTT 28.8
pH 7.38 7.41
pCO2 45 41
pO2 90 87
HCO3 26.6 26.0
O2 Delivery Level
--- NOTE | 2024-02-20 07:54 | W.PN.ANS.POP ---
Anesthesia Post Operative
- Anesthesia Post Op Note
Vital Signs Stable-See Nursing Note: Yes
Airway Patent: Yes
Adequate Pain Control: Yes
Change in Mental Status: No
Current Postoperative Nausea & Vomiting: No
Anesthesia Complications: No
General Anesthetic Recall: No
Unplanned Admission: No
Post Op Hydration Adequate: Yes
[2024-02-20] MEDS: LOW STRENGTH ASPIRIN 81 MG PO (07:57)
[2024-02-20] MEDS: PLAVIX 75 MG PO (07:58)
[2024-02-20] MEDS: CRESTOR 40 MG PO (07:58)
[2024-02-20] MEDS: SENOKOT-S 1 TABLET PO ×2 (07:58→19:45)
[2024-02-20] MEDS: NEURONTIN 100 MG PO ×3 (07:58→21:22)
[2024-02-20] MEDS: VITAMIN C 500 MG PO (07:58)
[2024-02-20] MEDS: FEOSOL 325 MG PO (07:58)
[2024-02-20] MEDS: PROTONIX 40 MG PO (07:58)
[2024-02-20] MEDS: ZETIA 10 MG PO (07:59)
[2024-02-20] MEDS: MAGNESIUM OXIDE 500 MG PO ×2 (07:59→19:44)
[2024-02-20] MEDS: NOVOLIN R INSULIN INFUSION 100 IV (08:00)
--- NOTE | 2024-02-20 08:00 | PTCARENOTE ---
Patient received at 0700 from nightshift RN. Patient sitting OOB in chair comfortably. Patient assessed. VSS NSR w/ PAC's. BP 152/54 HR 81 POX 96 2L NC. Patient stated pain 4/10 and tolerable. AOx4, loud pericardial rub, and lung sounds
diminished in bases. IS 1500. Bowel sounds hypoactive. Radial and pedal pulses present bilaterally. Skin warm and dry. Teller Manager strength equal bilaterally. RIJ cordis infusing at 10ml KVO. Left forearm PIV infusing insulin at 5ml/hr per glycemic
protocol. 2 mediastinal and 1 left pleural chest tubes to negative 20cm suction draining WNL serosanguineous fluid. sternal dressing and chest tube dressings dry and intact. Right leg wrapped with baudilio wrap intact incision approximated.
[2024-02-20] MEDS: TOPROL XL 12.5 MG PO ×2 (08:03→10:28)
[2024-02-20] MEDS: BACTROBAN 2% OINTMENT 1 APPLIC NASAL ×2 (08:04→19:45)
[2024-02-20] MEDS: LIDOCAINE 4% PATCH TOPICAL (08:11)
--- NOTE | 2024-02-20 08:16 | PN.DE.MGMTRT ---
Insulin Management
- -
02/20/2024 Diabetes Management Consult
Patient admitted 02/18 - to OR for CABG. PMH CAD, [place], [place] w PCI, HTN, HLD, type 1 diabetes for 40 years. A1C on admission 7.2%, cr .7, eGFR > 60. Prior to admission was using a Tandem tslim x2 insulin pump with control IQ, Novolog insulin and
DexCom G6.
Patient is awake alert and oriented, able to discuss diabetes plan of care. at bedside
POD 1 will continue glycemic protocol insulin infusion. Has required .8 to 6 units of insulin per hour.
Will assess in AM for readiness to transition back to insulin pump 02/20.
Discussed with nurse. Will follow
Diabetes History
- -
Type of Diabetes: 1
Pre-Admission Diabetes Regimen
02/19/24 02/20/24
12:42 03:17
Creatinine 0.7 0.7
Insulin Pump Settings
IP Diabetes Regimen
02/19/24 02/19/24 02/19/24
12:42 14:02 15:00
Glucose 166 H
POC Glucose 163 H 147 H 116 H
02/19/24 02/19/24 02/19/24
16:17 17:06 20:00
Glucose
POC Glucose 107 H 96 189 H
02/19/24 02/19/24 02/20/24
21:01 22:59 00:56
Glucose
POC Glucose 164 H 143 H 146 H
02/20/24 02/20/24 02/20/24
03:12 03:17 04:46
Glucose 135 H
POC Glucose 131 H 143 H
Patient Education
[2024-02-20 08:27] LABS: Glucose - Point of Care 157 mg/dl (70-99)
[2024-02-20 08:27] LABS: Glucose - Point of Care 149 mg/dl (70-99)
[2024-02-20 09:04] LABS: Glucose - Point of Care 146 mg/dl (70-99)
[2024-02-20] MEDS: NOVOLOG FLEXPEN 4 UNITS SC ×3 (09:08→19:12)
--- NOTE | 2024-02-20 11:01 | CM ---
Addendum entered by Gayla Griffin 02/20/24 15:29:
Telephone call to [facility] to make the referral. Referral sent. Awaiting their decision regarding ability to accept.
Original Note:
Reviewed chart. Met with Mr. Goel and hi s spouse to review discharge plans. He states he is feeling well. He states he ambulated in the hallway today. He states prior to admission he resides with his spouse in a two story home with three steps
to enter. He states he has a full flight of steps to get to bedroom/full bathroom. He states he has a powder room on the first floor. He states prior to admission he was independent with ambulation and adls. He states he has a prescription plan
and uses [facility]. His spouse will be home to assist in his care if needed. We reviewed [facility] because our Transitional Care Nurse can not go to [place]. Telephone call to [facility] to see if they can accept the
referral. Left message. Medical work-up in progress. The discharge plan is to return home with his spouse and [facility] if they can accept the referral when medically stable.
[2024-02-20 11:12] LABS: Glucose - Point of Care 137 mg/dl (70-99)
[2024-02-20 11:46] LABS: Glucose - Point of Care 139 mg/dl (70-99)
[2024-02-20] MEDS: NSS IV (12:11)
--- NOTE | 2024-02-20 12:23 | W.PN.CARDCBS ---
Today's Communication / Plan
-
Status post CABG. Remains in sinus rhythm.
Continue amiodarone and Toprol.
Continue postop care.
Creatinine 0.7.
Impression / Plan
-
PCP: Sue DA SILVA
Recruiting Team Lead: Dr. Kirkland
Impression:
CAD s/p CABG with PRESCOTT to LAD, SVG to Diag-2 and SVG to RPDA 02/19/24
CAD
Inferior myocardial infarction with BMS to mid right coronary artery 2001
sequential proximal, mid and distal LAD stenosis, occluded mid right coronary by cath 01/24/24
Recent admission for RLL PNA and MV CAD 02/09/24 until 02/13/24
DM 2
Hypertension
Hypercholesterolemia
Degenerative disc disease
Echo 01/24/2024: mildly dilated left ventricle, low normal systolic function, thin akinetic inferior wall, inferolateral hypokinesis, EF is 50-55%, normal RV, normal atria, trace MR, normal aortic valve, could not determine pulmonary artery systolic
pressure
BEVERLY intra-op 02/19/24: Preop EF 43% with severe hypokinesis noted in the basal to mid inferior wall segments . Postop images show the RV and LV to be more vigorous, LVEF 50 to 55% with continued hypokinesis of the basal to mid inferior wall segments
Plan:
-s/p CABG and remains in sinus rhythm.
-Cont Toprol and Amiodarone.
-ECG with RBBB.
-Hg stable at 11.1.
-Cont ASA/Plavix
-LDL 37 on 02/10/24. Outpatient doses of Crestor 40 mg daily and Zetia 10 mg daily set to resume
Progress Note - Recruiting Team Lead
Subjective
Date of Service: February 20, 2024
Denies chest pains. no palpitations
Objective
Labs:
02/20/24 03:18
02/20/24 03:17
Labs
Hgb 11.1 g/dL (13.0-18.0) L 02/20/24 03:18
Hct 33.5 % (39.0-52.0) L 02/20/24 03:18
Plt Count 320 10^3/uL (130-400) 02/20/24 03:18
PT 16.8 Sec (11.4-14.6) H 02/19/24 12:42
INR 1.33 02/19/24 12:42
APTT 28.8 Sec (23.4-35.0) 02/19/24 12:42
Sodium 137 mmol/L (135-145) 02/20/24 03:17
Potassium 4.8 mmol/L (3.5-5.1) 02/20/24 03:17
BUN 19 mg/dl (9-20) 02/20/24 03:17
Creatinine 0.7 mg/dL (0.7-1.3) 02/20/24 03:17
Glucose 135 mg/dl (70-99) H 02/20/24 03:17
Vital Signs and I&O:
Vital Signs
Temp Pulse Resp BP Pulse Ox
98.4 F 80 17 163/69 98
02/20/24 12:00 02/20/24 12:00 02/20/24 07:45 02/20/24 12:00 02/20/24 12:00
Vital Signs
Temp Pulse Resp BP Pulse Ox
98.4 F 80 17 163/69 98
02/20/24 12:00 02/20/24 12:00 02/20/24 07:45 02/20/24 12:00 02/20/24 12:00
Intake & Output
02/18/24 02/19/24 02/20/24 02/21/24
06:59 06:59 06:59 06:59
Intake Total 900.5 / 915.5 88.0 / 88.0
Output Total 1165 / 1165 45 / 45
Balance -264.5 / -249.5 43.0 / 43.0
Physical Exam
Physical Exam
GEN: No distress, awake, Ox3
HEENT: supple, anicteric, mmm
LUNGS: scatt rhonchi
CV: Reg, S1/S2, 1/6 syst LSB, no rub
ABD: soft, BS+, NT/ND
EXT: No edema
NEURO: Gross non-focal
SKIN: sternotomy
--- NOTE | 2024-02-20 12:45 | PTCARENOTE ---
Assessment unchanged. NSR w/ PAC's and occasional PVC's. VSS BP 168/78 HR [address] SQL CONSULTANT aware of BP. Patient OOB in chair. Voiding dark yellow urine. 40mg Lasix given through RIJ cordis. Insulin 4.5 units/hr in left PIV per glycemic
protocol. 10mL KVO in RIJ cordis. Dmitriy wrap removed. Right leg incision well approximated and dry. Chest tube outputs WNL.
[2024-02-20] MEDS: LASIX 40 MG IV (13:03)
[2024-02-20 14:13] LABS: Glucose - Point of Care 94 mg/dl (70-99)
[2024-02-20] MEDS: PACERONE 200 MG PO ×2 (16:06→21:22)
[2024-02-20 16:16] LABS: Glucose - Point of Care 183 mg/dl (70-99)
--- NOTE | 2024-02-20 16:30 | PTCARENOTE ---
Assessment unchanged. Patient lying comfortably in bed. NSR w/ occasional PVC's. VSS BP 131/57 HR 82 POX 93% RA. Patient stated pain 7/10. Roxicodone 5mg given @ 1626. Insulin 7 units/hr infusing into left PIV per glycemic protocol. 10 mL NSS
infusing KVO into RIJ cordis. Sternal dressing dry and intact. Chest tubes output WNL. Patient ambulated 2x in halls.
--- NOTE | 2024-02-20 16:30 | PTCARENOTE ---
Assessment unchanged. Patient lying comfortably in bed. NSR w/ occasional PVC's. VSS BP 131/57 HR 82 POX 93% RA. Patient stated pain 7/10. Roxicodone 5mg given. Blood glucose checked, 7 units/hr of insulin infusing into left PIV. 10 mL NSS
infusing KVO into RIJ cordis. Patient walked
[2024-02-20 17:12] LABS: Glucose - Point of Care 188 mg/dl (70-99)
[2024-02-20 18:12] LABS: Glucose - Point of Care 171 mg/dl (70-99)
[2024-02-20 19:08] LABS: Glucose - Point of Care 134 mg/dl (70-99)
--- NOTE | 2024-02-20 20:00 | PTCARENOTE ---
Assumed care of patient at 1900. Patient found oob in chair at time of assessment. Patient is AOx4, follows commands appropriately, moves all extremities. Lung sounds are diminished at the bases, saO2 94% on RA, CTx3: L pleural to one atrium and
medsx2 to one atrium draining red sanguineous. Heart sounds are audible, there is a rub present on auscultation, patient is SR with PVCs, PACs with prolonged QT on the monitor. Patient has normal palpable pulses and no edema. Patient has hypoactive
BS and is voiding. Patient has sternal incision with aquacell dressing that is CDI, RLE incision approx with surg adhesive CLINICAL FELLOW, and ABD dressing over CT wounds that is CDI. Patient has R IJ cordis and L FA 18g PIV. Patient is on insulin gtt column
3.
[2024-02-20 21:18] LABS: Glucose - Point of Care 139 mg/dl (70-99)
[2024-02-20 23:17] LABS: Glucose - Point of Care 160 mg/dl (70-99)
[2024-02-21] VITALS (24 sets, daily range): BP systolic 107–183; BP diastolic 54–83; PULSE 94; O2SAT 96–100; BMI 27.2
--- NOTE | 2024-02-21 00:30 | PTCARENOTE ---
Patient reassessed. Remains in SR with PACs, PVCs and long QT. Patient has two episodes of 4 beat Vtach asymptomatic and returned to SR quickly. CT PA notified. Call kearns within reach.
[2024-02-21 01:04] LABS: Glucose - Point of Care 85 mg/dl (70-99)
--- NOTE | 2024-02-21 01:37 | PTCARENOTE ---
Assumed care of patient at 1900. Patient found oob in chair at time of assessment. Patient is AOx4, follows commands appropriately, moves all extremities. Lung sounds are diminished at the bases, saO2 94% on RA, CTx3: L pleural to one atrium and
medsx2 to one atrium draining red sanguineous. Heart sounds are audible, there is a rub present on auscultation, patient is SR with PVCs, PACs with prolonged QT on the monitor. Patient has normal palpable pulses and no edema. Patient has hypoactive
BS and is voiding. Patient has sternal incision with aquacell dressing that is CDI, RLE incision approx with surg adhesive DIRECTOR SOFTWARE, and ABD dressing over CT wounds that is CDI. Patient has R IJ cordis and L FA 18g PIV. Patient is on insulin gtt column
3.
[2024-02-21 03:18] LABS: Glucose - Point of Care 163 mg/dl (70-99)
[2024-02-21] MEDS: ROXICODONE 5 MG PO ×3 (03:40→21:18)
[2024-02-21 04:05] LABS: Hematocrit 31.8 % (39.0-52.0); Hemoglobin 10.6 g/dL (13.0-18.0); Mean Corp Hgb Conc. 33.3 g/dL (33.0-37.0); Mean Corpuscular Hgb 31.3 pg (27.0-31.0); Mean Corpuscular Volume 93.8 fL (80.0-94.0); Mean Platelet Volume 9.3 fL (7.4-10.4); Platelet Count 312 10^3/uL (130-400); Red Blood Cell Count 3.39 10^6/uL (4.70-6.10); Red Cell Dist. Width 12.9 % (11.5-14.5); White Blood Cell Count 22.7 10^3/uL (4.8-10.8)
--- NOTE | 2024-02-21 04:16 | W.PN.CT ---
Today's Communication / Plan
-
Plan:
-No major issues overnight. Hemodynamically and neurologically intact
-On insulin gtt per protocol
-HR a bit more stable, sinus @ 90 bpm. Preop HR 47-50 bpm. Tolerating Amiodarone and Toprol XL
-Consider D/C of chest tubes: 2meds , L pleural
-AM cxr looks clear, no ptx, mild left basilar atelectasis on my review. F/U official report
-Cont. current meds (ASA, Plavix, Crestor, Amiodarone, Toprol XL)
-Transfer to tele phase today when off insulin gtt per protocol. Diabetes education/management following (DM on insulin pump @ home, A1C 7.2)
-Lasix and fluid restriction today for hyponatremia, 131
-Maintain cordis another day
-No PW
-Wean off of O2 as tolerated
-Encourage use of IS
-OOB into chair/Ambulate
-Home in 1-2 days
Assessment / Plan
-
Assessment:
-S/P Median sternotomy/ CABG x 3 (OSEAS to LAD, GSV to D2, GSV to RPDA)/Endoscopic harvest/prep of RLE GSV, by Dr. Allen, 02/19/24, pod#1
-Multivessel CAD
-NSTEMI (trop 0.16)
-USA
-Hx Inf. RI S/P PCI with BMS to mid RCA, 2001
-Hx Ischemic CM, recovered
-LVEF 43% per intraop BEVERLY, improved to 50-55% postop
-Mild-trace MR, per intraop BEVERLY
-Bradycardia
-Recent RLL pneumonia, 02/09/24
-Former tobacco use (25 pk/yrs, quit 11/2001)
-HTN
-HLD
-T2DM (on insulin pump, hgb A1C 7.2)
-S/P Colonoscopy with polypectomy x 5, 01/03/23
-S/P Left leg ORIF (odilon)
-S/p L4/5/S1 Laminectomy, 25 years ago
-S/p Appendectomy
-Acute postop blood loss/Anemia (stable without blood transfusion)
-Acute postop atelectasis
-Acute postop hypovolemia with subsequent hypervolemia
-Acute postop PVC's
-Acute postop new RBBB
-Acute postop hyponatremia, 131
Discussed patient care with: Cardiology, Nursing, Respiratory Therapy, Pharmacy and Care Team
Subjective
Procedure
S/P Median sternotomy/ CABG x 3 (OSEAS to LAD, GSV to D2, GSV to RPDA)/Endoscopic harvest/prep of RLE GSV, by Dr. Allen, 02/19/24
-
Date of Service: February 21, 2024
Pt c/o incisional pain, otherwise feels well
Objective Data
-
Lab Results
02/21/24 03:22
PT 16.8 Sec (11.4-14.6) H 02/19/24 12:42
INR 1.33 02/19/24 12:42
APTT 28.8 Sec (23.4-35.0) 02/19/24 12:42
Vital Signs
Vital Signs
Temp Pulse Resp BP Pulse Ox
98.0 F 105 18 148/68 96
02/21/24 03:00 02/21/24 03:30 02/21/24 03:00 02/21/24 03:00 02/21/24 03:15
CT Intake/Output/Weight
02/20/24 02/20/24 02/21/24
06:59 18:59 06:59
Intake Total 235.8 / 915.5 174.9 / 300.7 125.8 / 300.7
Output Total 625 / 1165 830 / 1370 540 / 1370
Balance -389.2 / -249.5 -655.1 / -1069.3 -414.2 / -1069.3
SaO2: 96 (2L)
Physical Exam
-
General: Awake, Oriented and AOx3
Cardiovascular: Regular rate & rhythm, No Murmurs, No Rub and No Gallop
Respiratory: Decreased Breath Sounds (at bases, otherwise clear)
Sternum: Stable
Incision: Clean, Dry, Intact and Dressing Intact
Extremities: Other (+trace edema)
Data Reviewed
-
Lab Results: Results Reviewed
Medications: Active Meds Reviewed
Chest X-Ray: Report Reviewed and Image Reviewed
ECG: Report Reviewed and Image Reviewed
--- NOTE | 2024-02-21 04:30 | PTCARENOTE ---
Patient reassessed. VSS. Remains SR with PACs, PVCs. Pain managed with scheduled meds Kristyn 5. Labs obtained. Transferred oob to chair. Call kearns within reach.
[2024-02-21 04:43] LABS: Blood Urea Nitrogen 23 mg/dl (9-20); Calcium 7.9 mg/dl (8.4-10.2); Carbon Dioxide 27 mmol/L (22-30); Chloride 97 mmol/L (98-107); Estimated Creatinine Clearance 120 ml/min; Glucose 160 mg/dl (70-99); Magnesium 2.1 mg/dl (1.6-2.3); Potassium 4.7 mmol/L (3.5-5.1); Sodium 131 mmol/L (135-145); eGFR > 60.00
[2024-02-21 05:20] LABS: Glucose - Point of Care 126 mg/dl (70-99)
[2024-02-21] MEDS: TYLENOL 1000 MG PO ×3 (06:25→21:18)
[2024-02-21 07:16] LABS: Glucose - Point of Care 122 mg/dl (70-99)
--- NOTE | 2024-02-21 08:04 | W.PN.INTV ---
Today's Communication / Plan
Recommendations
Doing well today, stable on RA
No new complaints, minimal pain
Transitioned off IV insulin to home pump
Encouraged OOB to chair, PT/OT
Transfer to tele, we will sign off upon transfer
Assessment
-
Patient is a 63-year-old male with previous history of CAD, diabetes, hypercholesterolemia presenting for elective cardiac surgery. He has prior history of CAD status post cardiac catheterization and imaging with evaluation for benefit from
surgical coronary revascularization. Underwent procedure today without complications and perioperatively transferred to CVICU for further management. He was extubated without difficulty. He has former smoking history of 25 pack years, quit in
2001. His notes that he has a history of obstructive sleep apnea but does not wear CPAP machine.
MVCAD status post CABG x 3 02/19/2024
Perioperative mechanical ventilation
Perioperative anemia, mild
Conditions present prior to admission
Gastro-esophageal reflux disease without esophagitis
Type 1 diabetes mellitus with hyperglycemia
Pure hypercholesterolemia
Presence of coronary angioplasty implant and graft
Atherosclerotic heart disease of [place] coronary artery without angina pectoris
Esophageal dysphagia
Essential (primary) hypertension
Ischemic cardiomyopathy, history of [place]
Male erectile dysfunction
RADHA not on CPAP
Former smoker, 25 pack years
Plan
S/p CAB POD #2
Off pressors per protocol
ECHO reviewed with low function- h/o ICM
PA catheter discontinued
Management of chest tubes per primary service
Pain control
RASS goal of 0 to -1
Intubated for procedure, extubated 02/19/24 and doing well
ABG(s) reviewed/adequate
CXR with stable post op changes
Maintain supplement oxygen as needed
No prior history of pulmonary disease, former smoker
Prior PFTs reviewed--normal
Has history of RADHA, can add on CPAP if needed, noncompliant
Can add nebulizers if needed
Aspiration precautions
Encouraged incentive spirometry, OOB/ambulation/early mobility
Advance diet as tolerated following extubation
GI prophylaxis if indicated for mechanical ventilation >48 hours
Monitor critical I/O's
[place]/chest tube output
Hb/platelets postoperatively stable
Trend CBC for now
Can transfuse if indicated for Hb <7, plt <50 in surgical patients
DVT prophylaxis including SCDs
Insulin protocol initiated --transitioned to insulin pump
Further adjustments as indicated per team
Diagnostic Data
Chest X-Ray: 02/19/24- 1. Endotracheal tube, pulmonary arterial catheter, and left chest tube in place following CABG surgery.
2. Mildly decreased bilateral lung volumes with mild subsegmental atelectasis in the lower lungs.
3. Mild cardiomegaly.
CT Scan: CHEST 02/09/24- 1. No evidence of central or segmental pulmonary embolism.
2. There is a consolidation with air bronchograms in the right lower lobe as well as additional scattered nodular consolidations with surrounding groundglass opacities which are favored to represent multifocal pneumonia.
3. There is mild prominence of the mediastinal and hilar lymph nodes which is likely reactive in nature.
Echo: BEVERLY 02/19/24- Overall LVEF calculates to 43% by Klein's rule. Severe hypokinesis noted in the basal to mid inferior wall segments. Left ventricle is mildly dilated. Mildly dilated left atrium.
Mildly dilated right atrium. Trace to mild mitral regurgitation. MV annulus is mildly dilated. Mild sessile atheroma seen in the descending aorta and distal arch.
[facility] 01/24/24- 1. Significant two-vessel coronary artery disease involving the LAD and dominant right coronary artery.
2. Elevated LVEDP at 25 mmHg.
PFT's: Spirometry 02/15/24-FEV1/FVC: 82 / 108% predicted. FEV1: 3.67L / 95%. FVC: 4.47L / 87%.
Reports and relevant images were personally reviewed.
Critical Care time 31 mins -- The patient is admitted for acute critical illness for the treatment of vital organ failure and/or prevention of further life-threatening conditions. Total care includes time spent in review of history, physical exam,
medications, hemodynamic/ventilator parameters, laboratory data, imaging and discussion with house staff, pharmacy, respiratory therapy, server engineer, and nursing.
Subjective Dataa
Subjective Data
Date of Service:
Date of Service: February 21, 2024
Chief Complaint: Irs Agent Follow Up
Subjective:
Doing well today, remains stable on RA
Sitting in chair, no new complaints
Off insulin gtt
Objective Data
Data Reviewed
Vital Signs / I&O / Oxygen:
Vital Signs
Temp Pulse Resp BP Pulse Ox
98.0 F 87 18 128/66 93
02/21/24 03:00 02/21/24 07:15 02/21/24 06:00 02/21/24 07:00 02/21/24 07:00
Intake and Output
02/20/24 02/21/24 02/22/24
06:59 06:59 06:59
Intake Total 900.5 / 915.5 345.7 / 345.7
Output Total 1165 / 1165 1870 / 1870
Balance -264.5 / -249.5 -1524.3 / -1524.3
SaO2 93
Nasal Cannula flow liters per 2
minute
Physical Exam
General: Comfortable and Other (NAD)
HEENT: Normocephalic, Anicteric and Moist Mucous Membranes
Cardiovascular: S1-S2 and Regular Rhythm
Respiratory: Clear, Non-Labored Respirations and Chest Tube
GI: Soft, Non Distended and Non Tender
Neurology: Awake, Alert, Oriented and No Motor Deficits
Skin: Warm, Dry and Good Color
Labs/Micro/Reports
Lab Data
02/21/24 03:22
02/21/24 03:22
--- NOTE | 2024-02-21 08:07 | PN.DE.MGMTRT ---
Insulin Management
- -
02/21/2024 Diabetes Management Consult Follow up
Patient admitted 02/18 - to OR for CABG. H CAD, [place], [place] w PCI, HTN, HLD, type 1 diabetes for 40 years. A1C on admission 7.2%, cr .7, eGFR > 60. Prior to admission was using a Tandem tslim x2 insulin pump with control IQ, Novolog insulin and
DexCom G6. Sees Dr. Rollins, marketing program coordinator routinely for diabetes care.
Patient is awake alert and oriented, able to discuss diabetes plan of care.
POD 2 Has required .8 to 7 units of insulin per hour.
Will transition back to insulin pump today. Assisted with pump set up, patient inserted infusion set and sensor without difficulty. Pump infusion @ 10:45. Patient aware he will bolus for meals and corrections and document on pump worksheet.
Pump settings as follows:
Basal Correction CHO ratio target
12am 2.2 20 4 110
6am 1.6 20 4 110
11am 1.5 25 4 110
7pm 1.8 20 4 110
10pm 2.2 20 5 110
24 hour basal total 44.2
Discussed with nurse. Will follow
Diabetes History
- -
Type of Diabetes: 1
Pre-Admission Diabetes Regimen
02/21/24
03:22
Creatinine 0.7
Insulin Pump Settings
IP Diabetes Regimen
02/20/24 02/20/24 02/20/24
06:48 08:14 09:03
Glucose
POC Glucose 157 H 149 H 146 H
02/20/24 02/20/24 02/20/24
11:10 11:45 14:10
Glucose
POC Glucose 137 H 139 H 94
02/20/24 02/20/24 02/20/24
16:14 17:09 18:10
Glucose
POC Glucose 183 H 188 H 171 H
01/09/0602/20/24 02/20/24
19:05 21:15 23:14
Glucose
POC Glucose 134 H 139 H 160 H
02/21/24 02/21/24 02/21/24
01:01 03:16 03:22
Glucose 160 H
POC Glucose 85 163 H
02/21/24 02/21/24
05:17 07:14
Glucose
POC Glucose 126 H 122 H
Meal type: Dinner
Meal type: Lunch
Meal type: Breakfast
Amount consumed: 60%
Amount consumed: 75%
Amount consumed: 100%
Patient Education
[2024-02-21] MEDS: NOVOLOG FLEXPEN 4 UNITS SC (08:26)
[2024-02-21] MEDS: BACTROBAN 2% OINTMENT 1 APPLIC NASAL ×2 (08:27→19:31)
[2024-02-21] MEDS: MAGNESIUM OXIDE 500 MG PO ×2 (08:27→19:31)
[2024-02-21] MEDS: ZETIA 10 MG PO (08:27)
[2024-02-21] MEDS: PACERONE 200 MG PO ×3 (08:27→21:18)
[2024-02-21] MEDS: SENOKOT-S 1 TABLET PO ×2 (08:27→19:31)
[2024-02-21] MEDS: PLAVIX 75 MG PO (08:28)
[2024-02-21] MEDS: PROTONIX 40 MG PO (08:28)
[2024-02-21] MEDS: LOW STRENGTH ASPIRIN 81 MG PO (08:28)
[2024-02-21] MEDS: VITAMIN C 500 MG PO (08:28)
[2024-02-21] MEDS: NEURONTIN 100 MG PO ×3 (08:28→21:18)
[2024-02-21] MEDS: FEOSOL 325 MG PO (08:28)
[2024-02-21] MEDS: CRESTOR 40 MG PO (08:28)
[2024-02-21] MEDS: LIDOCAINE 4% PATCH 1 PATCH TOPICAL (08:29)
[2024-02-21] MEDS: LASIX 40 MG IV ×2 (08:29→16:11)
--- NOTE | 2024-02-21 08:51 | PTCARENOTE ---
Received pt from slot shift supervisor RN; pt AAOx3 and resting comfortably in chair; NSR on monitor and VSS; + rub; RIJ cordis and PIV x1 patent; Insulin infusing see flow sheet for details; Lungs diminished; IS to 1000; CT x3 to -20 wall suction no air leak
and no crepitus noted; hypoactive bowel sounds; pt voiding yellow urine; palpable pulses throughout; no edema noted; all surgical sites C/D/I; see nursing documentation for further details.
[2024-02-21 09:09] LABS: Glucose - Point of Care 117 mg/dl (70-99)
[2024-02-21] MEDS: TOPROL XL 25 MG PO ×3 (09:53→19:31)
--- NOTE | 2024-02-21 10:20 | PTCARENOTE ---
Pt had 9 beat run of V tach; VSS; update CVPA, new medication placed for Amiodarone Bolus; awaiting medication from pharmacy.
[2024-02-21] MEDS: CORDARONE 103 MG IV (10:39)
[2024-02-21 11:15] LABS: Glucose - Point of Care 199 mg/dl (70-99)
--- NOTE | 2024-02-21 11:54 | CM ---
Reviewed chart. Met with and Mrs. Goel to review discharge plans. He states he is feeling well. He states he ambulated in the hallway today. Telephone call to [facility] to update them. Awaiting their decision
regarding ability to accept referral. Prior to admission he resides with his spouse in a two story home with three steps to enter. He has a full flight of steps to get to bedroom/full bathroom. He has a powder room on the first floor. Prior to
admission he was independent with ambulation and adls. He does have a prescription plan and uses [facility]. Medical work-up in progress. The discharge plan is to return home with his spouse and [facility] if they
accept the referral when medically stable.
[2024-02-21 12:09] LABS: Glucose - Point of Care 184 mg/dl (70-99)
[2024-02-21] MEDS: NOVOLOG FLEXPEN SC (12:19)
--- NOTE | 2024-02-21 13:14 | PTCARENOTE ---
Glycemic protocol completed; NSR PACs on monitor and VSS; assessment unchanged and pt resting comfortably in chair; family at bedside.
[2024-02-21] MEDS: PT'S OWN INSULIN PUMP - NovoLOG 10 UNIT SC (13:49)
[2024-02-21 13:50] LABS: Glucose - Point of Care 211 mg/dl (70-99)
[2024-02-21] MEDS: PT'S OWN INSULIN PUMP - NovoLOG SC (13:51)
--- NOTE | 2024-02-21 14:32 | W.PN.CARDCBS ---
Today's Communication / Plan
-
Plan:
-s/p CABG with PRESCOTT to LAD, SVG to D2, SVG to RPDA on February 18, 2023 and remains in sinus rhythm.
-Cont Toprol and Amiodarone. Short runs of nonsustained VT noted on telemetry, slowly uptitrating beta-shalonda.
-ECG with RBBB.
-Blood counts and renal function stable.
-Cont ASA/Plavix and high intensity statin.
-LDL 37 on 02/10/24. Outpatient doses of Crestor 40 mg daily and Zetia 10 mg daily set to resume.
-Continue postoperative supportive care.
-Out of bed into a chair/ambulation and encourage incentive spirometry.
-Anticipate discharge in the next 24 to 48 hours
Impression / Plan
-
PCP: Sue DA SILVA
Supervisory Geographer: Dr. Kirkland
Impression:
CAD s/p CABG with PRESCOTT to LAD, SVG to Diag-2 and SVG to RPDA 02/19/24
CAD
Inferior myocardial infarction with BMS to mid right coronary artery 2001
sequential proximal, mid and distal LAD stenosis, occluded mid right coronary by cath 01/24/24
Recent admission for RLL PNA and MV CAD 02/09/24 until 02/13/24
DM 2
Hypertension
Hypercholesterolemia
Degenerative disc disease
Echo 01/24/2024: mildly dilated left ventricle, low normal systolic function, thin akinetic inferior wall, inferolateral hypokinesis, EF is 50-55%, normal RV, normal atria, trace MR, normal aortic valve, could not determine pulmonary artery systolic
pressure
BEVERLY intra-op 02/19/24: Preop EF 43% with severe hypokinesis noted in the basal to mid inferior wall segments . Postop images show the RV and LV to be more vigorous, LVEF 50 to 55% with continued hypokinesis of the basal to mid inferior wall segments
Plan:
-s/p CABG with PRESCOTT to LAD, SVG to D2, SVG to RPDA on February 18, 2023 and remains in sinus rhythm.
-Cont Toprol and Amiodarone. Short runs of nonsustained VT noted on telemetry, slowly uptitrating beta-shalonda.
-ECG with RBBB.
-Blood counts and renal function stable.
-Cont ASA/Plavix and high intensity statin.
-LDL 37 on 02/10/24. Outpatient doses of Crestor 40 mg daily and Zetia 10 mg daily set to resume.
-Continue postoperative supportive care.
-Out of bed into a chair/ambulation and encourage incentive spirometry.
-Anticipate discharge in the next 24 to 48 hours
Progress Note - Supervisory Geographer
Subjective
Date of Service: February 21, 2024
No acute issues overnight. Overall patient tells me that his postoperative course is improving day after day. No significant chest discomfort. No bowel movement. Appetite is not at baseline.
Objective
Labs:
02/21/24 03:22
02/21/24 03:22
Labs
Hgb 10.6 g/dL (13.0-18.0) L 02/21/24 03:22
Hct 31.8 % (39.0-52.0) L 02/21/24 03:22
Plt Count 312 10^3/uL (130-400) 02/21/24 03:22
PT 16.8 Sec (11.4-14.6) H 02/19/24 12:42
INR 1.33 02/19/24 12:42
APTT 28.8 Sec (23.4-35.0) 02/19/24 12:42
Sodium 131 mmol/L (135-145) L 02/21/24 03:22
Potassium 4.7 mmol/L (3.5-5.1) 02/21/24 03:22
BUN 23 mg/dl (9-20) H 02/21/24 03:22
Creatinine 0.7 mg/dL (0.7-1.3) 02/21/24 03:22
Glucose 160 mg/dl (70-99) H 02/21/24 03:22
Vital Signs and I&O:
Vital Signs
Temp Pulse Resp BP Pulse Ox
98.6 F 80 20 151/69 95
02/21/24 12:00 02/21/24 13:00 02/21/24 12:00 02/21/24 12:47 02/21/24 12:00
Vital Signs
Temp Pulse Resp BP Pulse Ox
98.6 F 80 20 151/69 95
02/21/24 12:00 02/21/24 13:00 02/21/24 12:00 02/21/24 12:47 02/21/24 12:00
Intake & Output
02/19/24 02/20/24 02/21/24 02/22/24
06:59 06:59 06:59 06:59
Intake Total 900.5 / 915.5 345.7 / 345.7 174.5 / 174.5
Output Total 1165 / 1165 1870 / 1870 620 / 620
Balance -264.5 / -249.5 -1524.3 / -1524.3 -445.5 / -445.5
Physical Exam
Physical Exam
GEN: No distress, awake, Ox3
HEENT: supple, anicteric, mmm
LUNGS: scatt rhonchi
CV: Reg, S1/S2, 1/6 syst LSB, no rub, sternotomy dressing in place which is clean, dry and intact
ABD: soft, BS+, NT/ND
EXT: No edema
NEURO: Gross non-focal
SKIN: sternotomy
[2024-02-21] MEDS: KCL 20 MEQ PO (16:11)
--- NOTE | 2024-02-21 17:23 | PTCARENOTE ---
Pt ambulated hallways with RN; OOB to chair; NSR on monitor and VSS; assessment unchanged.
[2024-02-21 18:08] LABS: Glucose - Point of Care 305 mg/dl (70-99)
[2024-02-21] MEDS: PT'S OWN INSULIN PUMP - NovoLOG 8 UNIT SC (18:41)
--- NOTE | 2024-02-21 20:00 | PTCARENOTE ---
assumed care of pt from previous RN. pt A&Ox4, resting in bed at time of assessment. SR on tele-monitor. POX 95% on RA. abd s/n, +BS. pt voiding clear, yellow urine in urinal. all surgical sites stable, CDI. pt's own insulin pump in place. R IJ
cordis w/ KVO. PIV intact. see worklist for complete nursing assessment, interventions, VS, and I&Os.
[2024-02-21] MEDS: PT'S OWN INSULIN PUMP - NovoLOG 2.5 UNIT SC (21:22)
[2024-02-21 21:23] LABS: Glucose - Point of Care 290 mg/dl (70-99)
[2024-02-22] VITALS (10 sets, daily range): BP systolic 120–163; BP diastolic 55–77; PULSE 88; O2SAT 94; BMI 26.8
--- NOTE | 2024-02-22 | PTCARENOTE ---
assessment remains unchanged. VSS.
[2024-02-22] MEDS: NSS 500 IV ×2 (02:06→13:23)
--- NOTE | 2024-02-22 04:00 | PTCARENOTE ---
no acute changes. VSS. AM labs collected and sent.
[2024-02-22 04:14] LABS: Hematocrit 32.9 % (39.0-52.0); Hemoglobin 10.8 g/dL (13.0-18.0); Mean Corp Hgb Conc. 32.8 g/dL (33.0-37.0); Mean Corpuscular Hgb 30.4 pg (27.0-31.0); Mean Corpuscular Volume 92.7 fL (80.0-94.0); Mean Platelet Volume 9.1 fL (7.4-10.4); Platelet Count 310 10^3/uL (130-400); Red Blood Cell Count 3.55 10^6/uL (4.70-6.10); Red Cell Dist. Width 12.5 % (11.5-14.5); White Blood Cell Count 17.4 10^3/uL (4.8-10.8)
[2024-02-22 04:50] LABS: Blood Urea Nitrogen 21 mg/dl (9-20); Carbon Dioxide 35 mmol/L (22-30); Chloride 96 mmol/L (98-107); Estimated Creatinine Clearance 120 ml/min; Glucose 68 mg/dl (70-99); Magnesium 2.2 mg/dl (1.6-2.3); Potassium 4.1 mmol/L (3.5-5.1); Sodium 135 mmol/L (135-145); eGFR > 60.00
[2024-02-22] MEDS: FLEXERIL 5 MG PO (06:09)
[2024-02-22] MEDS: TYLENOL 1000 MG PO ×3 (06:09→21:31)
[2024-02-22] MEDS: LASIX 40 MG IV ×2 (08:08→16:11)
[2024-02-22] MEDS: CRESTOR 40 MG PO (08:08)
[2024-02-22] MEDS: ZETIA 10 MG PO (08:09)
[2024-02-22] MEDS: LOW STRENGTH ASPIRIN 81 MG PO (08:09)
[2024-02-22] MEDS: SENOKOT-S 1 TABLET PO ×2 (08:09→19:27)
[2024-02-22] MEDS: PACERONE 200 MG PO ×3 (08:09→21:31)
[2024-02-22] MEDS: VITAMIN C 500 MG PO (08:09)
[2024-02-22] MEDS: PLAVIX 75 MG PO (08:09)
[2024-02-22] MEDS: FEOSOL 325 MG PO (08:09)
[2024-02-22] MEDS: MAGNESIUM OXIDE 500 MG PO ×2 (08:09→19:27)
[2024-02-22] MEDS: NEURONTIN 100 MG PO ×3 (08:09→21:31)
[2024-02-22] MEDS: KCL 20 MEQ PO (08:09)
[2024-02-22] MEDS: PROTONIX 40 MG PO (08:10)
[2024-02-22] MEDS: TOPROL XL 25 MG PO (08:10)
[2024-02-22] MEDS: LIDOCAINE 4% PATCH TOPICAL (08:10)
[2024-02-22] MEDS: BACTROBAN 2% OINTMENT 1 APPLIC NASAL ×2 (08:10→19:37)
--- NOTE | 2024-02-22 08:14 | W.PN.CT ---
Today's Communication / Plan
-
-pod #3
-no issues overnight
-continue current meds
-encourage IS, OOB, ambulate
Assessment / Plan
-
Assessment:
-S/P Median sternotomy/ CABG x 3 (OSEAS to LAD, GSV to D2, GSV to RPDA)/Endoscopic harvest/prep of RLE GSV, by Dr. Allen, 02/19/24, pod#3
-Multivessel CAD
-NSTEMI (trop 0.16)
-[place]
-Hx Inf. [place] S/P PCI with BMS to mid RCA, 2001
-Hx Ischemic CM, recovered
-LVEF 43% per intraop BEVERLY, improved to 50-55% postop
-Mild-trace MR, per intraop BEVERLY
-Bradycardia
-Recent RLL pneumonia, 02/09/24
-Former tobacco use (25 pk/yrs, quit 11/2001)
-HTN
-HLD
-T2DM (on insulin pump, hgb A1C 7.2)
-S/P Colonoscopy with polypectomy x 5, 01/03/23
-S/P Left leg ORIF (odilon)
-S/p L4/5/S1 Laminectomy, 25 years ago
-S/p Appendectomy
-Acute postop blood loss/Anemia (stable without blood transfusion)
-Acute postop atelectasis
-Acute postop hypovolemia with subsequent hypervolemia
-Acute postop PVC's
-Acute postop new RBBB
-Acute postop hyponatremia, 131
Discussed patient care with: Nursing and Care Team
Subjective
Procedure
S/P Median sternotomy/ CABG x 3 (OSEAS to LAD, GSV to D2, GSV to RPDA)/Endoscopic harvest/prep of RLE GSV, by Dr. Allen, 02/19/24
-
Date of Service: February 22, 2024
Objective Data
-
Lab Results
02/22/24 03:53
02/22/24 03:53
PT 16.8 Sec (11.4-14.6) H 02/19/24 12:42
INR 1.33 02/19/24 12:42
APTT 28.8 Sec (23.4-35.0) 02/19/24 12:42
Vital Signs
Vital Signs
Temp Pulse Resp BP Pulse Ox
99.3 F 75 20 142/77 95
02/22/24 08:00 02/22/24 08:00 02/22/24 08:00 02/22/24 07:57 02/22/24 08:00
CT Intake/Output/Weight
02/21/24 02/22/24 02/22/24
18:59 06:59 18:59
Intake Total 214.5 / 304.5 90 / 304.5
Output Total 1620 / 2520 900 / 2520
Balance -1405.5 / -2215.5 -810 / -2215.5
SaO2: 95
Physical Exam
-
General: Awake, Oriented and AOx3
Cardiovascular: Regular rate & rhythm, No Murmurs, No Rub and No Gallop
Respiratory: Decreased Breath Sounds (at bases, otherwise clear)
Sternum: Stable
Incision: Clean, Dry, Intact and Dressing Intact
Extremities: Other (+trace edema)
Data Reviewed
-
Lab Results: Results Reviewed
Medications: Active Meds Reviewed
Chest X-Ray: Report Reviewed and Image Reviewed
ECG: Report Reviewed and Image Reviewed
--- NOTE | 2024-02-22 08:18 | PN.DE.MGMTRT ---
Insulin Management
- -
02/22/2024 Diabetes Management Consult Follow up
Patient admitted 02/18 - to OR for CABG. H CAD, [place], [place] w PCI, HTN, HLD, type 1 diabetes for 40 years. A1C on admission 7.2%, cr .7, eGFR > 60. Prior to admission was using a Tandem tslim x2 insulin pump with control IQ, Novolog insulin and
DexCom G6. Sees Dr. Rollins, title searcher routinely for diabetes care.
Patient is awake alert and oriented, able to discuss diabetes plan of care.
POD 3 Transitioned back to insulin pump 02/20 @ ~ 12 noon. Glucose trended u pto 305, patient corrected using pump appropriately. Glucose @ 3:53 68. Will discuss with patient overnight basal rate. Patient agreed to reduce 12am basal rate to 2.1.
Patient aware he will bolus for meals and corrections and document on pump worksheet.
Pump settings as follows:
Basal Correction CHO ratio target
12am 2.1 20 4 110
6am 1.6 20 4 110
11am 1.5 25 4 110
7pm 1.8 20 4 110
10pm 2.2 20 5 110
24 hour basal total 43.4
Discussed with nurse. Will follow
Diabetes History
- -
Type of Diabetes: 1
Pre-Admission Diabetes Regimen
02/22/24
03:53
Creatinine 0.7
Insulin Pump Settings
IP Diabetes Regimen
02/21/24 02/21/24 02/21/24
09:06 11:13 12:07
Glucose
POC Glucose 117 H 199 H 184 H
02/21/24 02/21/24 02/21/24
13:48 18:07 21:21
Glucose
POC Glucose 211 H 305 H 290 H
02/22/24
03:53
Glucose 68 L
POC Glucose
Meal type: Dinner
Meal type: Breakfast
Amount consumed: 90%
Amount consumed: 100%
Patient Education
[2024-02-22 08:19] LABS: Glucose - Point of Care 94 mg/dl (70-99)
--- NOTE | 2024-02-22 08:32 | PTCARENOTE ---
Received pt from automatic clipper RN; pt AAOx3 and resting comfortably in chair; NSR on monitor and VSS; RIJ Cordis and PIV x1 patent; Lungs diminished; IS to 1000; Pts own insulin pump on right lower abdomen; positive bowel sounds; pt voiding yellow
urine; palpable pulses throughout and no edema noted; all surgical sites C/D/I; see nursing documentation for further details.
[2024-02-22] MEDS: PT'S OWN INSULIN PUMP - NovoLOG 8.25 UNIT SC (08:40)
--- NOTE | 2024-02-22 09:18 | PTCARENOTE ---
Pt had 6 beat run of V tach; VSS; updated CVNP and Hanna Newberry PA; Amiodarone bolus ordered awaiting pharmacy.
[2024-02-22] MEDS: LOPRESSOR 25 MG PO (09:36)
[2024-02-22] MEDS: CORDARONE 103 MG IV (09:36)
--- NOTE | 2024-02-22 10:39 | PTCARENOTE ---
Report given to IVU RN; pt transferred onto IVU assembler fitter and signed off completed.
--- NOTE | 2024-02-22 11:42 | CM ---
Addendum entered by JUAN Torres 02/22/24 15:59:
[facility] unable to accept.
Additional referrals sent to: [facility], [facility], [facility], [facility], [email or web address].
Will await response. Issue may be that patient has PA MD.
Will continue to search for accepting provider.
Original Note:
CM following for DC planning needs.
Met w/ patient and spouse at bedside.
Pt. has been transferred to IVU from CVICU. He reports that he is feeling well, POD#3.
We reviewed DC plan for home w/ VN.
Referral has been made to [facility]; awaiting acceptance. Will follow up.
Will remain avail.
[2024-02-22] MEDS: PT'S OWN INSULIN PUMP - NovoLOG 9 UNIT SC (12:20)
[2024-02-22 12:21] LABS: Glucose - Point of Care 251 mg/dl (70-99)
--- NOTE | 2024-02-22 15:13 | W.PN.CARDCBS ---
Today's Communication / Plan
-
Plan:
-s/p CABG with PRESCOTT to LAD, SVG to D2, SVG to RPDA on February 18, 2023 and remains in sinus rhythm.
-Cont Toprol and Amiodarone. BB slowly uptitrated due to NSVT on tele.
-ECG with new post-op RBBB.
-Blood counts and renal function stable. Cont to monitor closely.
-Cont ASA/Plavix and high intensity statin.
-LDL 37 on 02/10/24. Outpatient doses of Crestor 40 mg daily and Zetia 10 mg daily set to resume.
-Continue postoperative supportive care.
-Out of bed into a chair/ambulation and encourage incentive spirometry.
Impression / Plan
-
PCP: Sue DA SILVA
Manufacturing Maintenance Manager: Dr. Kirkland
Impression:
CAD s/p CABG with PRESCOTT to LAD, SVG to Diag-2 and SVG to RPDA 02/19/24
CAD
Inferior myocardial infarction with BMS to mid right coronary artery 2001
sequential proximal, mid and distal LAD stenosis, occluded mid right coronary by cath 01/24/24
Recent admission for RLL PNA and MV CAD 02/09/24 until 02/13/24
DM 2
Hypertension
Hypercholesterolemia
Degenerative disc disease
Echo 01/24/2024: mildly dilated left ventricle, low normal systolic function, thin akinetic inferior wall, inferolateral hypokinesis, EF is 50-55%, normal RV, normal atria, trace MR, normal aortic valve, could not determine pulmonary artery systolic
pressure
BEVERLY intra-op 02/19/24: Preop EF 43% with severe hypokinesis noted in the basal to mid inferior wall segments . Postop images show the RV and LV to be more vigorous, LVEF 50 to 55% with continued hypokinesis of the basal to mid inferior wall segments
Plan:
-s/p CABG with PRESCOTT to LAD, SVG to D2, SVG to RPDA on February 18, 2023 and remains in sinus rhythm.
-Cont Toprol and Amiodarone. BB slowly uptitrated due to NSVT on tele.
-ECG with new post-op RBBB.
-Blood counts and renal function stable. Cont to monitor closely.
-Cont ASA/Plavix and high intensity statin.
-LDL 37 on 02/10/24. Outpatient doses of Crestor 40 mg daily and Zetia 10 mg daily set to resume.
-Continue postoperative supportive care.
-Out of bed into a chair/ambulation and encourage incentive spirometry.
Progress Note - Manufacturing Maintenance Manager
Subjective
Date of Service: February 22, 2024
No acute issues overnight.
Objective
Labs:
02/22/24 03:53
02/22/24 03:53
Labs
Hgb 10.8 g/dL (13.0-18.0) L 02/22/24 03:53
Hct 32.9 % (39.0-52.0) L 02/22/24 03:53
Plt Count 310 10^3/uL (130-400) 02/22/24 03:53
PT 16.8 Sec (11.4-14.6) H 02/19/24 12:42
INR 1.33 02/19/24 12:42
APTT 28.8 Sec (23.4-35.0) 02/19/24 12:42
Sodium 135 mmol/L (135-145) 02/22/24 03:53
Potassium 4.1 mmol/L (3.5-5.1) 02/22/24 03:53
BUN 21 mg/dl (9-20) H 02/22/24 03:53
Creatinine 0.7 mg/dL (0.7-1.3) 02/22/24 03:53
Glucose 68 mg/dl (70-99) L 02/22/24 03:53
Vital Signs and I&O:
Vital Signs
Temp Pulse Resp BP Pulse Ox
98.3 F 60 16 141/70 94
02/22/24 10:41 02/22/24 12:00 02/22/24 10:41 02/22/24 10:38 02/22/24 10:41
Vital Signs
Temp Pulse Resp BP Pulse Ox
98.3 F 60 16 141/70 94
02/22/24 10:41 02/22/24 12:00 02/22/24 10:41 02/22/24 10:38 02/22/24 10:41
Intake & Output
02/20/24 02/21/24 02/22/24 02/23/24
06:59 06:59 06:59 06:59
Intake Total 900.5 / 915.5 345.7 / 345.7 304.5 / 304.5 760 / 760
Output Total 1165 / 1165 1870 / 1870 2520 / 2520 400 / 400
Balance -264.5 / -249.5 -1524.3 / -1524.3 -2215.5 / -2215.5 360 / 360
Physical Exam
Physical Exam
GEN: No distress, awake, Ox3
HEENT: supple, anicteric, mmm
LUNGS: scatt rhonchi
CV: Reg, S1/S2, 1/6 syst LSB, no rub, sternotomy dressing in place which is clean, dry and intact
ABD: soft, BS+, NT/ND
EXT: No edema
NEURO: Gross non-focal
SKIN: sternotomy
[2024-02-22 17:21] LABS: Glucose - Point of Care 192 mg/dl (70-99)
--- NOTE | 2024-02-22 18:14 | PTCARENOTE ---
Pt transferred from CVICU. He denies any discomfort, up walking in halls independently with a steady gait. Pt using IS to 2250mls. Telemetry shows sinus rhythm with occasional single PVC's, one triplet noted. Right IJ cordis remains in place. Pt
diuresing well after IV lasix.
[2024-02-22] MEDS: PT'S OWN INSULIN PUMP - NovoLOG 7 UNIT SC (18:20)
--- NOTE | 2024-02-22 18:47 | PTCARENOTE ---
RIJ Cordis removed per CVNP order.
[2024-02-22] MEDS: LOPRESSOR 75 MG PO (19:27)
[2024-02-22 21:26] LABS: Glucose - Point of Care 124 mg/dl (70-99)
[2024-02-22] MEDS: PT'S OWN INSULIN PUMP - NovoLOG SC (21:37)
--- NOTE | 2024-02-22 21:40 | PTCARENOTE ---
Received patient at change of shift. Patient sitting in bed, awake, alert, and oriented. IJ Cordis site clean, dry, and intact. Sternum dressing in place, site clean, dry, and intact. Right calf site clean, dry, and intact. No swelling noticed. BP
127/58, NSR w/ BBB and occasional PVCs 70s-80s, 94% on room air. Patient denies any pain at this time. Discussed plan of care for evening. Patient verbalized understanding. Call kearns within reach.
[2024-02-23] VITALS (17 sets, daily range): BP systolic 92–177; BP diastolic 47–72; PULSE 67; O2SAT 96–98; BMI 26.4
[2024-02-23 04:57] LABS: Hemoglobin 10.3 g/dL (13.0-18.0); Mean Corp Hgb Conc. 33.2 g/dL (33.0-37.0); Mean Corpuscular Hgb 30.6 pg (27.0-31.0); Mean Platelet Volume 9.3 fL (7.4-10.4); Platelet Count 365 10^3/uL (130-400); Red Blood Cell Count 3.37 10^6/uL (4.70-6.10); Red Cell Dist. Width 12.6 % (11.5-14.5); White Blood Cell Count 14.2 10^3/uL (4.8-10.8)
[2024-02-23 05:00] LABS: Blood Urea Nitrogen 19 mg/dl (9-20); Calcium 8.3 mg/dl (8.4-10.2); Carbon Dioxide 29 mmol/L (22-30); Chloride 98 mmol/L (98-107); Estimated Creatinine Clearance 120 ml/min; Glucose 138 mg/dl (70-99); Magnesium 2.2 mg/dl (1.6-2.3); Potassium 4.4 mmol/L (3.5-5.1); Sodium 134 mmol/L (135-145); eGFR > 60.00
[2024-02-23] MEDS: TYLENOL 1000 MG PO ×2 (06:35→21:31)
--- NOTE | 2024-02-23 07:42 | W.PN.CT ---
Today's Communication / Plan
-
-pod #4
-no issues overnight, ambulates without problems, wants to go home
-continue to ambulate
-likely d/c later today
Assessment / Plan
-
Assessment:
-S/P Median sternotomy/ CABG x 3 (OSEAS to LAD, GSV to D2, GSV to RPDA)/Endoscopic harvest/prep of RLE GSV, by Dr. Allen, 02/19/24, pod#4
-Multivessel CAD
-NSTEMI (trop 0.16)
-[place]
-Hx Inf. [place] S/P PCI with BMS to mid RCA, 2001
-Hx Ischemic CM, recovered
-LVEF 43% per intraop BEVERLY, improved to 50-55% postop
-Mild-trace MR, per intraop BEVERLY
-Bradycardia
-Recent RLL pneumonia, 02/09/24
-Former tobacco use (25 pk/yrs, quit 11/2001)
-HTN
-HLD
-T2DM (on insulin pump, hgb A1C 7.2)
-S/P Colonoscopy with polypectomy x 5, 01/03/23
-S/P Left leg ORIF (odilon)
-S/p L4/5/S1 Laminectomy, 25 years ago
-S/p Appendectomy
-Acute postop blood loss/Anemia (stable without blood transfusion)
-Acute postop atelectasis
-Acute postop hypovolemia with subsequent hypervolemia
-Acute postop PVC's
-Acute postop new RBBB
-Acute postop hyponatremia, 131
Discussed patient care with: Nursing and Care Team
Subjective
Procedure
S/P Median sternotomy/ CABG x 3 (OSEAS to LAD, GSV to D2, GSV to RPDA)/Endoscopic harvest/prep of RLE GSV, by Dr. Allen, 02/19/24
-
Date of Service: February 23, 2024
Objective Data
-
Lab Results
02/23/24 04:14
02/23/24 04:14
PT 16.8 Sec (11.4-14.6) H 02/19/24 12:42
INR 1.33 02/19/24 12:42
APTT 28.8 Sec (23.4-35.0) 02/19/24 12:42
Vital Signs
Vital Signs
Temp Pulse Resp BP Pulse Ox
98.2 F 70 16 131/53 96
02/23/24 04:07 02/23/24 04:07 02/23/24 04:07 02/23/24 04:07 02/23/24 04:07
CT Intake/Output/Weight
02/22/24 02/23/24 02/23/24
18:59 06:59 18:59
Intake Total 760 / 880 120 / 880
Output Total 1300 / 2750 1450 / 2750
Balance -540 / -1870 -1330 / -1870
SaO2: 96
Physical Exam
-
General: Awake and AOx3
Cardiovascular: Regular rate & rhythm, No Murmurs and No Rub
Respiratory: Clear and Decreased Breath Sounds
Sternum: Stable
Incision: Clean and Intact
Extremities: No Edema
Abdomen: soft, nontender, nondistended
Data Reviewed
-
Lab Results: Results Reviewed
Medications: Active Meds Reviewed
Chest X-Ray: Report Reviewed and Image Reviewed
ECG: Report Reviewed and Image Reviewed
--- NOTE | 2024-02-23 07:44 | PN.DE.MGMTRT ---
Insulin Management
- -
02/23/2024 Diabetes Management F/U:
Patient admitted 02/18 - to OR for CABG. PMH CAD, [place], [place] w PCI, HTN, HLD, type 1 diabetes for 40 years. A1C on admission 7.2%, cr .7, eGFR > 60. Prior to admission was using a Tandem tslim x2 insulin pump with control IQ, NovoLog insulin and
DexCom G6. Sees Dr. Rollins, customs and border protection inspector routinely for diabetes care.
Patient is awake alert, oriented, sitting up in bed, offers no complaint. Able to discuss diabetes plan of care.
POD#4 Transitioned back to insulin pump 02/20 @ ~ 12 noon. Glucose trended up to 305, patient corrected using pump appropriately.
02/21 Glucose @ 3:53 68. Will discuss with patient overnight basal rate. Patient agreed to reduce 12am basal rate to 2.1. Patient aware he will bolus for meals and corrections and document on pump worksheet.
Pump settings as follows:
Basal Correction CHO ratio target
12am 2.1 20 4 110
6am 1.6 20 4 110
11am 1.5 25 4 110
7pm 1.8 20 4 110
10pm 2.2 20 5 110
24 hour basal total 43.4
Pt is independent managing his insulin pump and able to administer bolus with meals.
Will cont to follow
Diabetes History
- -
Type of Diabetes: 1
Pre-Admission Diabetes Regimen
02/23/24
04:14
Creatinine 0.7
Insulin Pump Settings
IP Diabetes Regimen
02/22/24 02/22/24 02/22/24
08:16 12:19 17:19
Glucose
POC Glucose 94 251 H 192 H
02/22/24 02/23/24
21:24 04:14
Glucose 138 H
POC Glucose 124 H
Meal type: Dinner
Meal type: Lunch
Meal type: Breakfast
Amount consumed: 40%
Amount consumed: 100%
Amount consumed: 100%
Patient Education
[2024-02-23 07:58] LABS: Glucose - Point of Care 161 mg/dl (70-99)
[2024-02-23] MEDS: PT'S OWN INSULIN PUMP - NovoLOG 9 UNIT SC (08:15)
[2024-02-23] MEDS: PROTONIX 40 MG PO (08:16)
[2024-02-23] MEDS: VITAMIN C 500 MG PO (08:16)
[2024-02-23] MEDS: NEURONTIN 100 MG PO ×3 (08:16→21:32)
[2024-02-23] MEDS: BACTROBAN 2% OINTMENT 1 APPLIC NASAL (08:16)
[2024-02-23] MEDS: CRESTOR 40 MG PO (08:17)
[2024-02-23] MEDS: PACERONE 200 MG PO ×3 (08:17→21:32)
[2024-02-23] MEDS: KCL 20 MEQ PO (08:17)
[2024-02-23] MEDS: PLAVIX 75 MG PO (08:17)
[2024-02-23] MEDS: ZETIA 10 MG PO (08:17)
[2024-02-23] MEDS: MAGNESIUM OXIDE 500 MG PO ×2 (08:17→20:26)
[2024-02-23] MEDS: FEOSOL 325 MG PO (08:17)
[2024-02-23] MEDS: LIDOCAINE 4% PATCH TOPICAL (08:18)
[2024-02-23] MEDS: SENOKOT-S 1 TABLET PO ×2 (08:18→20:26)
[2024-02-23] MEDS: LOPRESSOR 75 MG PO ×2 (08:18→20:26)
[2024-02-23] MEDS: LOW STRENGTH ASPIRIN 81 MG PO (08:19)
[2024-02-23] MEDS: LASIX 40 MG IV (08:19)
--- NOTE | 2024-02-23 09:01 | W.DCSUMMARY ---
Discharge Summary
Discharge Data
Date of Admission: 02/19/24
Date of Discharge: 02/23/24
Total time spent discharging patient (in min): 40
-
Pending Results: No
Hospital Course
Primary care physician:
Dr. Sue Burkett
Outpatient router operator:
Dr. Kirkland
Inpatient consultants:
DCA, esthetician/skin therapist, DM Management lime kiln operator
Procedures:
1. CABG x 3 (OSEAS to LAD, GSV to D2, GSV to RPDA)
Primary Diagnosis:
1. Multivessel coronary artery Disease
Secondary Diagnoses:
1. Former tobacco use (25 pk/yrs, quit 11/2001)
2. HTN
3. HLD
4. T2DM (on insulin pump, hgb A1C 7.2)
5. Acute postop blood loss/Anemia (stable without blood transfusion)
6. Acute postop atelectasis
7. Acute postop hypovolemia with subsequent hypervolemia
8. Acute postop PVC's/ non-sustained ventricular tachycardia
9. Acute postop new RBBB
10. Acute postop hyponatremia, 131
HPI: 63-year-old male presented electively on 02/18 for a coronary artery bypass surgery with Dr. Allen.
Hospital course: Patient presented to [facility] 02/18 for a coronary artery bypass with Dr. Allen. Postoperatively he returned to the CVICU on Levophed, insulin, and Precedex. Precedex was weaned off by 1555 and subsequently Levophed was
weaned off. On 02/19 postoperative day 1 patient's [place] catheter was removed. Patient was found to be hypertensive so patient metoprolol was increased to 25 mg daily and he was diuresed with 40 mg of IV Lasix. On 02/20 postoperative day 2 patient
was found to have increased episodes of NSVT. He was given an amiodarone bolus of 150 mg and beta-blockers were increased. He was also placed back on his own insulin pump on that day. He was diuresed with 40 mg of IV Lasix. On 02/21 postoperative
day 3 patient's beta-shalonda was again increased to 75 mg twice daily due to continued episodes of nonsustained ventricular tachycardia and he was given an additional dose of amiodarone 150 mg. On 02/22 postoperative day 4 patient's heart rate was
well-controlled in the 60s. Patient was resumed on his home dose of lisinopril. Patient continued to have PVCs but no further episodes of nonsustained VT was observed patient's ectopy was discussed with cardiology and was decided that he will be
discharged home with 200 mg of amiodarone daily. He was again diuresed with 40 mg of IV Lasix. Patient's 2 view chest x-ray was performed and it was stable so he was deemed stable for discharge home. His prescriptions were sent to his preferred
pharmacy.
Home medication changes:
See below
Discharge Plan
-
Patient Disposition: Home (Routine Discharge)
Discharge Diagnosis/Procedures: CABG x 3 (OSEAS to LAD, GSV to D2, GSV to RPDA)
Condition: Good
Diet: 2 Gram Sodium
Activity: No strenuous activity
Driving Restrictions: Not until seen by your Dr
Bathing Restrictions: OK to Shower
Other Services: Cardiac Rehab
Specialty Instructions: Weigh Daily- Call MD for wt gain/loss 3 lbs overnight/5 lbs in 1 week
Activity Restrictions/Additional Instructions:
ACTIVITY:
-No strenuous activity: no heavy lifting, pushing, pulling anything over 15 pounds for one month
-continue to use stairs as tolerated
DRIVING RESTRICTIONS:
-No driving for one month or until approved by your surgeon
WOUND CARE:
-Shower daily. Use soap & water.
-No lotions, creams or powders on incision area.
DIET:
-continue a low fat/low cholesterol diet.
-IF you are diabetic, continue carb controlled diet.
CARDIAC REHAB:
-Please make appointment to start in 5-6 weeks with your local hospital program. (See Cardiac Rehabilitation Discharge Booklet).
SPECIALTY INSTRUCTIONS:
-Weigh yourself daily. Call your physician for any weight gain/loss of 3 lbs overnight or 5 lbs in one week.
-REPORT any clicking noise or uneven appearance of your sternum to your surgeon immediately.
-If you smoke, you are instructed to quit. The [place] smoking hotline phone number is [phone]
Instructions: Coronary artery bypass graft surgery - Discharge instructions
Referrals:
CT Transitional Care Nurse [Outside] - in one to two days
(
The Cardiothoracic Transitional Care Nurse will call you to set up a visit in 1-2 days.)
[facility] [Outside] - 04/02/24 1:00 pm
(Cardiac Rehab Orientation appointment is on 04/02/24 at 1:00pm
The Cardiac Rehab gym is located on the first floor of the [facility].)
Sharonda Palacio PA-C [Specified Professional Personl] - 04/03/24 11:00 am (Your appointment on February at 1:[address] Kirkland has been cancelled. )
Sue Burkett CRNP [Family Provider] - in four to six weeks (Please make an appointment in four to six weeks. )
Hi Allen MD [Active] - 03/26/24 1:30 pm
Prescriptions:
New
cyclobenzaprine 10 mg Tablet
5 mg PO Q8HPRN PRN (Reason: muscle spasm) Qty: 30 0RF
clopidogrel 75 mg Tablet
75 mg PO DAILY Qty: 30 0RF
acetaminophen 325 mg Tablet
650 mg PO Q4HPRN PRN (Reason: mild pain,headache,temp >101F ) Qty: 0 0RF
metoprolol tartrate 50 mg Tablet
75 mg PO BID Qty: 90 0RF
gabapentin 100 mg Capsule
100 mg PO TID Qty: 30 0RF
amiodarone 200 mg tablet
200 mg PO DAILY Qty: 60 0RF
Continued
folic acid 400 mcg Tablet
0.4 mg PO DAILY
lisinopril 5 mg Tablet
5 mg PO DAILY
ezetimibe 10 mg Tablet
10 mg PO DAILY
rosuvastatin 40 mg Tablet
40 mg PO DAILY
cholecalciferol (vitamin D3) [Vitamin D3] 50 mcg (2,000 unit) Tablet
50 mcg PO DAILY
nitroglycerin 0.4 mg tablet, sublingual
0.4 mg sublingual [id number] PRN (Reason: chest pain) Qty: 25 2RF
Patient Comments:
Has not taken this medication
vitamin H11-lbgmrzgih factor
3,000 mcg PO DAILY
Patient's Own Insulin Pump
1 sliding scale dose SC AC
Patient Comments:
02/09/24: uses insulin aspart
To d/c energy control officer to OR
aspirin 81 mg Capsule
81 mg
Discontinued
metoprolol succinate 25 mg Tablet Extended Release 24 Hr
25 mg PO DAILY
isosorbide mononitrate 30 mg tablet extended release 24 hr
30 mg PO BID
doxycycline hyclate 100 mg capsule
100 mg PO BID
Rx Instructions:
not taking this medication
furosemide [Lasix] 20 mg tablet
20 mg PO DAILY
cefdinir 300 mg capsule
300 mg PO BID
Patient Comments:
no longer taking this drug
Care Plan Goals
Care Plan Goals:
Problem: Readiness for enhanced knowledge related to diagnosis and treatment plan
Goal: Understand your diagnosis and treatment plan needs, including medications if applicable.
Instructions: Know your diagnosis, underlying causes and treatment plan options, including medications if applicable. Consult with your health care team to learn about your diagnosis and treatment plan, including medications if applicable.
Discharge Date and Time
Print Language: LAO
[2024-02-23] MEDS: ZESTRIL 5 MG PO (09:52)
[2024-02-23 11:41] LABS: Glucose - Point of Care 198 mg/dl (70-99)
--- NOTE | 2024-02-23 11:58 | W.PN.CARDCBS ---
Addendum entered and electronically signed by Randall Miguel MD 02/23/24 18:26:
I saw and examined the patient on morning rounds.
The [employer]'s note was reviewed and I agree with the note.
Comment: Briefly, 63-year-old man past medical history of multivessel CAD who underwent CABG on 02/19/2024
Resting comfortably in bed this morning, no cardiac complaints
He has been ambulating without significant chest discomfort or shortness of breath and no lower extremity edema
Agree with aspirin/Plavix, high intensity statin and Zetia for treatment of CAD
On amio in the postop period
Has been relatively bradycardic, would consider decreasing metoprolol dose on discharge
Discussed cardiac rehab with patient and at bedside
Outpatient follow-up has been arranged, stable for discharge from my perspective
Original Note:
Today's Communication / Plan
-
Consider reduction in Lopressor to 50 mg twice a day due to bradycardia
Continue amiodarone, aspirin, Plavix, Crestor, Zetia
Consider discharging home on Lasix 40 mg a day
Outpatient BMP in 1 week
Outpatient cardiology follow-up has been arranged
Impression / Plan
-
PCP: Sue DA SILVA
Long Term Care Phlebotomist: Dr. Kirkland
Impression:
Elective admission 02/19/2024 for MVCAD
CAD
s/p CABG with PRESCOTT to LAD, SVG to Diag-2 and SVG to RPDA 02/19/24
Inferior myocardial infarction with BMS to mid right coronary artery 2001
sequential proximal, mid and distal LAD stenosis, occluded mid right coronary by cath 01/24/24
Recent admission for RLL PNA and MV CAD 02/09/24 until 02/13/24
DM 2
Hypertension
Hypercholesterolemia
Degenerative disc disease
Echo 01/24/2024: mildly dilated left ventricle, low normal systolic function, thin akinetic inferior wall, inferolateral hypokinesis, EF is 50-55%, normal RV, normal atria, trace MR, normal aortic valve, could not determine pulmonary artery systolic
pressure
Cardiac catheterization 01/24/2024: LVEDP 25, LV 126/10, luminal irregularities in the left main, tubular 80% stenosis proximal LAD, diffuse 70-80% mid to distal LAD, 2 diagonal branches, small circumflex with mild to moderate atherosclerosis in
small to medium OM1, RCA is 100% occluded and feeds via left to right collaterals, no V gram
BEVERLY intra-op 02/19/24: Preop EF 43% with severe hypokinesis noted in the basal to mid inferior wall segments . Postop images show the RV and LV to be more vigorous, LVEF 50 to 55% with continued hypokinesis of the basal to mid inferior wall segments
Plan:
-Elective admission for multivessel coronary artery disease s/p CABG with PRESCOTT to LAD, SVG to D2, SVG to RPDA on February 18, 2023.
-Patient overall feels well. He has been able to ambulate the halls without difficulty.
-Per review of telemetry patient remains in sinus rhythm. However appears to be bradycardic. Patient did have NSVT on telemetry earlier on admission which required up titration of beta-shalonda. This seems to have resolved. Would consider
reduction of Lopressor to 50 mg twice a day and continue on amiodarone 200 mg daily for 4 to 6 weeks.
-ECG with new post-op RBBB. Stable
-Blood counts and renal function stable. Cont to monitor closely.
-Cont ASA/Plavix and high intensity statin.
-LDL 37 on 02/10/24. Outpatient doses of Crestor 40 mg daily and Zetia 10 mg daily set to resume.
-Patient does not appear to be acutely volume overloaded. He did receive 2 days of IV Lasix 40 mg twice daily. Previously he was on 20 mg Lasix as outpatient. Would consider sending him home on 40 mg with BMP in 1 week.
-Continue postoperative supportive care.
-Recommend outpatient in cardiac rehab
-Patient stable from cardiac standpoint for discharge. Outpatient cardiology follow-up has been arranged
Progress Note - Long Term Care Phlebotomist
Subjective
Date of Service: February 23, 2024
Patient seen and examined. Patient lying in bed reports he feels well. He has been able to ambulate around the lee and unit without difficulty. He reports he is eager to go home. Patient's is at bedside.
Objective
Labs:
02/23/24 04:14
02/23/24 04:14
Labs
Hgb 10.3 g/dL (13.0-18.0) L 02/23/24 04:14
Hct 31.0 % (39.0-52.0) L 02/23/24 04:14
Plt Count 365 10^3/uL (130-400) 02/23/24 04:14
PT 16.8 Sec (11.4-14.6) H 02/19/24 12:42
INR 1.33 02/19/24 12:42
APTT 28.8 Sec (23.4-35.0) 02/19/24 12:42
Sodium 134 mmol/L (135-145) L 02/23/24 04:14
Potassium 4.4 mmol/L (3.5-5.1) 02/23/24 04:14
BUN 19 mg/dl (9-20) 02/23/24 04:14
Creatinine 0.7 mg/dL (0.7-1.3) 02/23/24 04:14
Glucose 138 mg/dl (70-99) H 02/23/24 04:14
Vital Signs and I&O:
Vital Signs
Temp Pulse Resp BP Pulse Ox
98.3 F 56 18 141/68 94
02/23/24 11:00 02/23/24 11:05 02/23/24 11:00 02/23/24 11:05 02/23/24 11:00
Vital Signs
Temp Pulse Resp BP Pulse Ox
98.3 F 56 18 141/68 94
02/23/24 11:00 02/23/24 11:05 02/23/24 11:00 02/23/24 11:05 02/23/24 11:00
Intake & Output
02/21/24 02/22/24 02/23/24 02/24/24
06:59 06:59 06:59 06:59
Intake Total 345.7 / 345.7 304.5 / 304.5 880 / 880
Output Total 1869 / 1869 2520 / 2520 2750 / 2750
Balance -1524.3 / -1524.3 -2215.5 / -2215.5 -1870 / -1870
Physical Exam
Physical Exam
GEN: No distress, awake, Ox3
HEENT: supple, anicteric, mmm
LUNGS: Mildly decreased breath sounds otherwise clear to auscultation
CV: Reg, S1/S2, 1/6 syst LSB, no rub, sternotomy dressing in place which is clean, dry and intact
ABD: soft, BS+, NT/ND
EXT: No edema, clubbing or cyanosis
NEURO: Gross non-focal
SKIN: Warm, dry, pink
[2024-02-23 13:25] LABS: Glucose - Point of Care 133 mg/dl (70-99)
--- NOTE | 2024-02-23 13:37 | PTCARENOTE ---
Pt had been walking in halls without problem this morning. Pt in shower and stated he 'felt light headed after ducking under the shower head'. He also stated that the water was 'very warm' . Pt's was with him and called for help. Pt found
starting to sit down toward the floor, gripping very tightly to handrails and not answering for several seconds. Placed commode chair behind pt. Pt was looking a little roach. Telemetry replaced, sinus stefan @50, BP 120/54. Pt seen by Kourtney Ward,
PA. Pt helped back into bed for close monitoring. Accucheck 133.
--- NOTE | 2024-02-23 13:49 | CM ---
Addendum entered by JUAN Torres 02/23/24 16:21:
Aware that patient may not DC today as planned.
I updated [facility].
Will need to send DC Summary to [facility] once stable.
Fax as below.
Original Note:
CM following for DC planning needs.
Plan is for home w/ VN. Referrals made to a number of VNs; accepted by [facility] of [facility] with estimated SOC 02/25.
I have discussed this w/ patient and spouse.
Plan is for home w/ [facility]
Fax- [phone]
[2024-02-23] MEDS: NSS IV (14:17)
[2024-02-23] MEDS: PT'S OWN INSULIN PUMP - NovoLOG SC ×2 (14:17→22:05)
[2024-02-23] MEDS: TYLENOL PO (16:26)
[2024-02-23] MEDS: LASIX IV (16:27)
[2024-02-23 17:42] LABS: Glucose - Point of Care 168 mg/dl (70-99)
[2024-02-23] MEDS: PT'S OWN INSULIN PUMP - NovoLOG 7 UNIT SC (18:14)
--- NOTE | 2024-02-23 19:30 | PTCARENOTE ---
Pt rested in bed during the afternoon, improved back to his baseline. CT sutures removed by RANJAN Avitia. Telemetry shows sinus rhythm with rates of 49-84.
--- NOTE | 2024-02-23 19:52 | W.PN.UPDATE ---
Update Note
Progress Note Update
discharge was cancelled due to the patient becoming dizzy and likely hypotensive in the shower. He was moved from the bathroom to a chair. blood pressure was assessed and blood pressure was stable. Case was discussed with Dr. Allen and lisinopril
was decreased to 2.5mg daily. Discharge was delayed until tomorrow. Will continue to monitor.
[2024-02-23 22:02] LABS: Glucose - Point of Care 168 mg/dl (70-99)
--- NOTE | 2024-02-23 23:51 | PTCARENOTE ---
Received patient at change of shift. Patient sitting in bed, A&O x3, bedside. No c/o dizziness, lightheadedness. BP 140/47, NSR w/ first degree 70s-90s, 94% on room air. Discussed plan of care for the evening. Patient verbalized understanding.
Call kearns within reach.
[2024-02-24 03:53] VITALS: BP 127/54
--- NOTE | 2024-02-24 03:55 | W.PN.CT ---
Addendum entered and electronically signed by Hi Allen MD 02/24/24 09:41:
I saw and examined the patient.
The PA's note was reviewed and I agree with the note.
Comment:
T[facility]el - POD#5 s/p CABG x 3
D/C home today
Original Note:
Today's Communication / Plan
-
-pod #5
-no issues overnight
-continue to ambulate
-Lisinopril decreased to 2.5mg daily do to dizziness
-likely d/c later today
Assessment / Plan
-
Assessment:
-S/P Median sternotomy/ CABG x 3 (OSEAS to LAD, GSV to D2, GSV to RPDA)/Endoscopic harvest/prep of RLE GSV, by Dr. Allen, 02/19/24, pod#5
-Multivessel CAD
-NSTEMI (trop 0.16)
-[place]
-Hx Inf. [place] S/P PCI with BMS to mid RCA, 2001
-Hx Ischemic CM, recovered
-LVEF 43% per intraop BEVERLY, improved to 50-55% postop
-Mild-trace MR, per intraop BEVERLY
-Bradycardia
-Recent RLL pneumonia, 02/09/24
-Former tobacco use (25 pk/yrs, quit 11/2001)
-HTN
-HLD
-T2DM (on insulin pump, hgb A1C 7.2)
-S/P Colonoscopy with polypectomy x 5, 01/03/23
-S/P Left leg ORIF (odilon)
-S/p L4/5/S1 Laminectomy, 25 years ago
-S/p Appendectomy
-Acute postop blood loss/Anemia (stable without blood transfusion)
-Acute postop atelectasis
-Acute postop hypovolemia with subsequent hypervolemia
-Acute postop PVC's
-Acute postop new RBBB
-Acute postop hyponatremia, 131
Subjective
Procedure
S/P Median sternotomy/ CABG x 3 (OSEAS to LAD, GSV to D2, GSV to RPDA)/Endoscopic harvest/prep of RLE GSV, by Dr. Allen, 02/19/24
-
Date of Service: February 24, 2024
Objective Data
-
Lab Results
02/23/24 04:14
02/23/24 04:14
PT 16.8 Sec (11.4-14.6) H 02/19/24 12:42
INR 1.33 02/19/24 12:42
APTT 28.8 Sec (23.4-35.0) 02/19/24 12:42
Vital Signs
Vital Signs
Temp Pulse Resp BP Pulse Ox
98.2 F 55 16 118/65 95
02/23/24 21:35 02/24/24 00:00 02/23/24 21:35 02/23/24 21:34 02/24/24 00:35
CT Intake/Output/Weight
02/23/24 02/23/24 02/24/24
06:59 18:59 06:59
Intake Total 120 / 880
Output Total 1450 / 2750 700 / 700
Balance -1330 / -1870 -700 / -700
SaO2: 95
[2024-02-24 04:08] VITALS: BMI 26.3
[2024-02-24] MEDS: TYLENOL 1000 MG PO (05:39)
[2024-02-24 07:02] VITALS: BP 144/60
[2024-02-24 08:14] LABS: Glucose - Point of Care 171 mg/dl (70-99)
--- NOTE | 2024-02-24 08:18 | W.PN.CARDCBS ---
Today's Communication / Plan
-
Dizziness has resolved. Weight is down.
Would stop IV Lasix and switch to 40 mg daily. Start 02/24
Continue metoprolol 75 p.o. twice daily and lisinopril 2.5 mg daily.
Would decrease amiodarone to 200 mg daily.
Continue aspirin and Plavix.
Okay for discharge today.
Impression / Plan
-
PCP: Sue DA SILVA
Student Counsellor: Dr. Kirkland
Impression:
Elective admission 02/19/2024 for MVCAD
CAD
s/p CABG with PRESCOTT to LAD, SVG to Diag-2 and SVG to RPDA 02/19/24
Inferior myocardial infarction with BMS to mid right coronary artery 2001
sequential proximal, mid and distal LAD stenosis, occluded mid right coronary by cath 01/24/24
Recent admission for RLL PNA and MV CAD 02/09/24 until 02/13/24
DM 2
Hypertension
Hypercholesterolemia
Degenerative disc disease
Echo 01/24/2024: mildly dilated left ventricle, low normal systolic function, thin akinetic inferior wall, inferolateral hypokinesis, EF is 50-55%, normal RV, normal atria, trace MR, normal aortic valve, could not determine pulmonary artery systolic
pressure
Cardiac catheterization 01/24/2024: LVEDP 25, LV 126/10, luminal irregularities in the left main, tubular 80% stenosis proximal LAD, diffuse 70-80% mid to distal LAD, 2 diagonal branches, small circumflex with mild to moderate atherosclerosis in
small to medium OM1, RCA is 100% occluded and feeds via left to right collaterals, no V gram
BEVERLY intra-op 02/19/24: Preop EF 43% with severe hypokinesis noted in the basal to mid inferior wall segments . Postop images show the RV and LV to be more vigorous, LVEF 50 to 55% with continued hypokinesis of the basal to mid inferior wall segments
Plan:
-Elective admission for multivessel coronary artery disease s/p CABG with PRESCOTT to LAD, SVG to D2, SVG to RPDA on February 18, 2023.
-Patient overall feels well. He has been able to ambulate the halls without difficulty.
-no further dizziness. Stop IV Lasix. Would start Lasix 40 mg daily in a.m. 02/24. Continue lower dose of lisinopril. Continue metoprolol.
-ECG with new post-op RBBB. Stable
-Cont ASA/Plavix and high intensity statin.
-LDL 37 on 02/10/24. Outpatient doses of Crestor 40 mg daily and Zetia 10 mg daily set to resume.
-Okay for discharge today.
Progress Note - Student Counsellor
Subjective
Date of Service: February 24, 2024
Feels much better. Dizziness has resolved.
Objective
Labs:
02/23/24 04:14
02/23/24 04:14
Labs
Hgb 10.3 g/dL (13.0-18.0) L 02/23/24 04:14
Hct 31.0 % (39.0-52.0) L 02/23/24 04:14
Plt Count 365 10^3/uL (130-400) 02/23/24 04:14
PT 16.8 Sec (11.4-14.6) H 02/19/24 12:42
INR 1.33 02/19/24 12:42
APTT 28.8 Sec (23.4-35.0) 02/19/24 12:42
Sodium 134 mmol/L (135-145) L 02/23/24 04:14
Potassium 4.4 mmol/L (3.5-5.1) 02/23/24 04:14
BUN 19 mg/dl (9-20) 02/23/24 04:14
Creatinine 0.7 mg/dL (0.7-1.3) 02/23/24 04:14
Glucose 138 mg/dl (70-99) H 02/23/24 04:14
Vital Signs and I&O:
Vital Signs
Temp Pulse Resp BP Pulse Ox
97.8 F 75 18 127/54 94
02/24/24 07:00 02/24/24 04:00 02/24/24 07:00 02/24/24 03:53 02/24/24 07:00
Vital Signs
Temp Pulse Resp BP Pulse Ox
97.8 F 75 18 127/54 94
02/24/24 07:00 02/24/24 04:00 02/24/24 07:00 02/24/24 03:53 02/24/24 07:00
Intake & Output
02/22/24 02/23/24 02/24/24 02/25/24
06:59 06:59 06:59 06:59
Intake Total 304.5 / 304.5 880 / 880
Output Total 2520 / 2520 2750 / 2750 700 / 700
Balance -2215.5 / -2215.5 -1870 / -1870 -700 / -700
Physical Exam
Physical Exam
GEN: No distress, awake, Ox3
HEENT: supple, anicteric, mmm
LUNGS: CTA, no wheezes/rales
CV: Reg, S1/S2, 1/6 syst LSB, no gallop
ABD: soft, BS+, NT/ND
EXT: No edema
NEURO: Gross non-focal
SKIN: sternotomy
[2024-02-24] MEDS: LIDOCAINE 4% PATCH TOPICAL (08:47)
[2024-02-24] MEDS: LOW STRENGTH ASPIRIN 81 MG PO (08:47)
[2024-02-24] MEDS: ZESTRIL 2.5 MG PO (08:48)
[2024-02-24] MEDS: NEURONTIN 100 MG PO (08:49)
[2024-02-24] MEDS: MAGNESIUM OXIDE 500 MG PO (08:49)
[2024-02-24] MEDS: PACERONE 200 MG PO (08:49)
[2024-02-24] MEDS: KCL 20 MEQ PO (08:49)
[2024-02-24] MEDS: VITAMIN C 500 MG PO (08:49)
[2024-02-24] MEDS: CRESTOR 40 MG PO (08:49)
[2024-02-24] MEDS: LOPRESSOR 75 MG PO (08:49)
[2024-02-24] MEDS: PT'S OWN INSULIN PUMP - NovoLOG 10 UNIT SC (08:50)
[2024-02-24] MEDS: ZETIA 10 MG PO (08:50)
[2024-02-24] MEDS: PLAVIX 75 MG PO (08:50)
[2024-02-24] MEDS: FEOSOL 325 MG PO (08:50)
[2024-02-24] MEDS: SENOKOT-S 1 TABLET PO (08:50)
[2024-02-24 08:55] VITALS: BP 155/65
[2024-02-24] MEDS: LASIX IV (09:31)
[2024-02-24] MEDS: PROTONIX 40 MG PO (09:44)
--- NOTE | 2024-02-24 11:19 | PTCARENOTE ---
02/24/2024 Received patient sitting in chair this AM. Pt had no complaints of headache, dizziness, chest pain or palpitations. Pt on rn cardiac rehab NSR, BP stable, On room air 95%. All medications reviewed and given. Patient to be discharged home
today-awaiting Md orders.
[2024-02-24 11:20] VITALS: BP 128/75
[2024-02-24] MEDS: NSS IV (11:32)
[2024-02-24] MEDS: PT'S OWN INSULIN PUMP - NovoLOG SC (14:06)
--- NOTE | 2024-02-24 14:24 | PTCARENOTE ---
02/24/2024 Discharge order given, reviewed discharge instructions regarding medications, sternal precautions, diet, weighing yourself daily. IV and Telem pack removed. All questions were answered, support given. Pt escorted out in wheelchair w/
and PCT.
== END 2024-02-24 14:30 | disposition home health service (06) | DRG 236 ==
LOC: IVU 04:58
PROVIDERS: Nurse Practitioner; ADMITTING PHYSICIAN Thoracic Surgery (Cardiothoracic Vascular Surgery); FAMILY PHYSICIAN Nurse Practitioner; OTHER PHYSICIAN Internal Medicine
PROC: 06BP4ZZ Excision of Right Saphenous Vein, Percutaneous Endoscopic Approach (ICD-10-PCS; 2024-02-19)
PROC: 5A1221Z Performance of Cardiac Output, Continuous (ICD-10-PCS; 2024-02-19)
PROC: B24BZZ4 Ultrasonography of Heart with Aorta, Transesophageal (ICD-10-PCS; 2024-02-19)
PROC: 0211093 Bypass Coronary Artery, Two Arteries from Coronary Artery with Autologous Venous Tissue, Open Approach (ICD-10-PCS; 2024-02-19)
PROC: 02100AC Bypass Coronary Artery, One Artery from Thoracic Artery with Autologous Arterial Tissue, Open Approach (ICD-10-PCS; 2024-02-19)
DX: I25.10 Atherosclerotic heart disease of native coronary artery without angina pectoris (principal); D62 Acute posthemorrhagic anemia; J98.11 Atelectasis; E87.1 Hypo-osmolality and hyponatremia; I47.20 Ventricular tachycardia, unspecified; E78.00 Pure hypercholesterolemia, unspecified; E10.65 Type 1 diabetes mellitus with hyperglycemia; G47.33 Obstructive sleep apnea (adult) (pediatric); K21.9 Gastro-esophageal reflux disease without esophagitis; E86.1 Hypovolemia; E87.70 Fluid overload, unspecified; I49.3 Ventricular premature depolarization; I45.10 Unspecified right bundle-branch block; R42 Dizziness and giddiness; I10 Essential (primary) hypertension; I25.5 Ischemic cardiomyopathy; N52.9 Male erectile dysfunction, unspecified; Z96.41 Presence of insulin pump (external) (internal); I25.2 Old myocardial infarction; Z79.82 Long term (current) use of aspirin; Z95.5 Presence of coronary angioplasty implant and graft; Z87.891 Personal history of nicotine dependence; Z79.4 Long term (current) use of insulin
CPT/HCPCS: 36415; 71045; 71046; 80048; 80053; 81003; 82248; 82330; 82565; 82805; 82947; 82962; 83735; 84132; 84302; 84520; 85014; 85018; 85025; 85027; 85049; 85610; 85730; 86850; 86900; 86901; 86920; 87070; 93005; 93312; 93320; 93325; 93880; 94002; 94010

== ENCOUNTER 2024-04-12 10:34 | Outpatient (RCR) | payer BC, SELFPAY ==
[2024-04-02 14:22] LABS: Glucose - Point of Care 130 mg/dl (70-99)
[2024-04-02 14:59] LABS: Glucose - Point of Care 108 mg/dl (70-99)
[2024-04-03 09:27] LABS: Glucose - Point of Care 183 mg/dl (70-99)
[2024-04-03 10:23] LABS: Glucose - Point of Care 111 mg/dl (70-99)
[2024-04-05 09:25] LABS: Glucose - Point of Care 186 mg/dl (70-99)
[2024-04-05 10:24] LABS: Glucose - Point of Care 105 mg/dl (70-99)
[2024-04-08 09:20] LABS: Glucose - Point of Care 137 mg/dl (70-99)
[2024-04-08 10:17] LABS: Glucose - Point of Care 97 mg/dl (70-99)
[2024-04-08 10:32] LABS: Glucose - Point of Care 127 mg/dl (70-99)
[2024-04-10 09:21] LABS: Glucose - Point of Care 214 mg/dl (70-99)
[2024-04-10 10:19] LABS: Glucose - Point of Care 225 mg/dl (70-99)
[2024-04-12 09:17] LABS: Glucose - Point of Care 193 mg/dl (70-99)
[2024-04-12 10:15] LABS: Glucose - Point of Care 107 mg/dl (70-99)
== END 2024-04-12 23:59 | disposition home or self-care (01) ==
LOC: CRHB 10:34
PROVIDERS: ATTENDING PHYSICIAN Internal Medicine Cardiovascular Disease
DX: Z95.1 Presence of aortocoronary bypass graft (principal)
CPT/HCPCS: 82962; 93797; 93798

== ENCOUNTER 2024-04-15 13:11 | Emergency (ER) | payer BC, SELFPAY ==
[2024-04-15 13:23] VITALS: BP 138/62
[2024-04-15 14:11] LABS: Urine Albumin 2+ (Neg - Trace); Urine Bilirubin Negative (Negative); Urine Character Clear (Clear); Urine Color Yellow; Urine Glucose 1+ (Negative); Urine Ketone Negative (Negative); Urine Leukocyte Negative (Negative); Urine Nitrite Negative (Negative); Urine Occult Blood 1+ (Negative); Urine Urobilinogen Negative (Neg - 1+)
[2024-04-15 14:27] LABS: Urine Bacteria Few (Negative); Urine Mucus Few; Urine Red Blood Cell 0-2 /HPF (0-2); Urine Squamous Cell 0-2 /LPF (Few); Urine White Cell 0-2 /HPF (0-5)
--- NOTE | 2024-04-15 15:21 | ED.GENMED ---
History of Present Illness
<AVINASH Marte - Last Filed: 04/15/24 23:30>
General
Chief Complaint: Abdominal Pain
Source: patient
Exam Limitations: none
Time Seen by Provider: 04/15/24 15:12
Nursing documentation reviewed up to this point in time: agreed with
History of Present Illness
History of Present Illness:
Patient is a 63-year-old male with past medical history of CAD, cardiomyopathy hypertension hyperlipidemia [place] status post bypass in February on aspirin presents to the ER for evaluation o discomfort/pain. Patient complains of pain underneath his
left rib area. Patient reports yesterday evening while watching TV pain started suddenly. He reports he did notice last night that he could not lay down because pain was worse with laying down. It persisted throughout the night he did not sleep.
He reports pain is worse when he takes a deep breath or tries to lay down or moves. He denies any actual injury. He did some light lifting yesterday. He denies any associated nausea or vomiting. It does not radiate to his back. He does not feel
short of breath.
Patient denies any associated fever or chills.
He does not smoke. He is on aspirin only no other blood thinners.
Past History
<AVINASH Marte - Last Filed: 04/15/24 23:30>
Past History
ED Past Medical History: CAD, HTN, Hypercholesterolemia, IDDM and [place]
ED Past Surgical History: Appendectomy and Orthopedic
Social History
Tobacco: Non-smoker
Alcohol: Occasional
Drug: None
Personal:
Living: with family
Review of Systems
<AVINASH Marte - Last Filed: 04/15/24 23:30>
Review of Systems
Allergies reviewed?: Yes
All Other Systems: ROS reviewed and negative except as documented in HPI and ROS
Constitutional: Reports no symptoms; Denies fever, fatigue or chills
Respiratory: Reports other (pain to left 'rib area' ); Denies trouble breathing
Cardiac: Denies chest pain, diaphoresis, palpitations or syncope
ABD/GI: Reports abdominal pain and other (+ pain in luq worse with deep breath )
Musculoskeletal: Reports no symptoms
Skin: Reports no symptoms
Neurological: Reports no symptoms
Psychiatric: Reports no symptoms
Phy Exam
<AVINASH Marte - Last Filed: 04/15/24 23:30>
General Physical Exam
General Presentation: no apparent distress
General age: appears stated age
General Skin: warm and dry
General Habitus: normal
General Mental: alert
General Hydration: appears well hydrated
Cardiovascular Exam
Cardiovascular Exam: regular rate/rhythm, no murmur and normal peripheral pulses
Pulmonary Exam
Pulmonary Exam: lungs clear, no respiratory distress and other (tender to left anterior rib region no crepitus no ecchymosis)
Neurological Exam
Neurological Exam: alert and oriented x3
Musculoskeletal Exam
Musculoskeletal Exam: full ROM
Skin Exam
Skin Exam: normal color and warm/dry
Psychiatric Exam
Psychiatric Exam: normal mood/affect
Course
<AVINASH Marte - Last Filed: 04/15/24 23:30>
Orders/Labs/Results
Orders:
Orders
04/15/24 13:29
Electrocardiogram (*1) Urgent
Reason for Study: Abdominal Pain
EKG- Treatment ONCE
IV Insert/Care/Rem.- Treatment PRN
04/15/24 13:38
Urinalysis Reflex To Culture Urgent
Date Specimen was Collected: 04/15/24
Time Specimen was Collected: 13:29
Urine Microscopic Reflex Cult Urgent
04/15/24 15:19
Complete Blood Count/With Diff Urgent
Comprehensive Metabolic Panel Urgent
Lipase Urgent
04/15/24 15:45
CT Chest PE Study Urgent
Comment:
Reason For Exam: left pleuritc pain wores with deep breath
04/15/24 18:16
Acetaminophen [Tylenol] 1,000 mg PO NOW STA
04/15/24 19:03
Vital Signs- Treatment ONCE
Frequency: Once
Abnormal Lab Results
04/15/24 04/15/24
13:38 15:19
WBC 11.3 H 10^3/uL
(4.8-10.8)
RBC 4.42 L 10^6/uL
(4.70-6.10)
MCHC 32.4 L g/dL
(33.0-37.0)
Abs Immat Gran (auto) 0.1 H 10^3/uL
(0-0.05)
Absolute Neuts (auto) 8.7 H 10^3/uL
(1.4-6.5)
Absolute Lymphs (auto) 1.0 L 10^3/uL
(1.2-3.4)
Absolute Monos (auto) 1.3 H 10^3/uL
(0.1-0.6)
Immature Gran % 0.6 H %
(0-0.5)
Neutrophils % 77.2 H %
(42.2-75.2)
Lymphocytes % 9.2 L %
(20.5-51.1)
Monocytes % 11.9 H %
(1.7-9.3)
Glucose 132 H mg/dl
(70-99)
Ur Occult Blood Reflex 1+ A
(Negative)
Urine Bacteria (Reflex) Few A
(Negative)
Urine Glucose 1+ A
(Negative)
Urine Albumin (Reflex) 2+ A
(Neg - Trace)
04/15/24 15:19
04/15/24 15:19
Vital Signs
Initial and Last Documented VS:
Initial Vital Signs
Temp Pulse Resp BP Pulse Ox
98.6 F 66 18 138/62 100
04/15/24 13:23 04/15/24 13:23 04/15/24 13:23 04/15/24 13:23 04/15/24 13:23
Last Documented Vital Signs
Temp Pulse Resp BP Pulse Ox
98.6 F 72 16 130/82 98
04/15/24 13:23 04/15/24 19:06 04/15/24 19:06 04/15/24 19:06 04/15/24 19:06
Pneumatic Tube Repairer consulted with Physician
Name of Physician Consulted: Edel
Pedro Pablolt;Onur Hollingsworth, DO - Last Filed: 04/15/24 15:46>
Orders/Labs/Results
Orders:
Orders
04/15/24 13:29
Electrocardiogram (*1) Urgent
Reason for Study: Abdominal Pain
EKG- Treatment ONCE
IV Insert/Care/Rem.- Treatment PRN
04/15/24 13:38
Urinalysis Reflex To Culture Urgent
Date Specimen was Collected: 04/15/24
Time Specimen was Collected: 13:29
Urine Microscopic Reflex Cult Urgent
04/15/24 15:19
Complete Blood Count/With Diff Urgent
Comprehensive Metabolic Panel Urgent
Lipase Urgent
04/15/24 15:45
CT Chest PE Study Urgent
Comment:
Reason For Exam: left pleuritc pain wores with deep breath
04/15/24 18:16
Acetaminophen [Tylenol] 1,000 mg PO NOW STA
04/15/24 19:03
Vital Signs- Treatment ONCE
Frequency: Once
Abnormal Lab Results
04/15/24 04/15/24
13:38 15:19
WBC 11.3 H 10^3/uL
(4.8-10.8)
RBC 4.42 L 10^6/uL
(4.70-6.10)
MCHC 32.4 L g/dL
(33.0-37.0)
Abs Immat Gran (auto) 0.1 H 10^3/uL
(0-0.05)
Absolute Neuts (auto) 8.7 H 10^3/uL
(1.4-6.5)
Absolute Lymphs (auto) 1.0 L 10^3/uL
(1.2-3.4)
Absolute Monos (auto) 1.3 H 10^3/uL
(0.1-0.6)
Immature Gran % 0.6 H %
(0-0.5)
Neutrophils % 77.2 H %
(42.2-75.2)
Lymphocytes % 9.2 L %
(20.5-51.1)
Monocytes % 11.9 H %
(1.7-9.3)
Glucose 132 H mg/dl
(70-99)
Ur Occult Blood Reflex 1+ A
(Negative)
Urine Bacteria (Reflex) Few A
(Negative)
Urine Glucose 1+ A
(Negative)
Urine Albumin (Reflex) 2+ A
(Neg - Trace)
04/15/24 15:19
04/15/24 15:19
Vital Signs
Initial and Last Documented VS:
Initial Vital Signs
Temp Pulse Resp BP Pulse Ox
98.6 F 66 18 138/62 100
04/15/24 13:23 04/15/24 13:23 04/15/24 13:23 04/15/24 13:23 04/15/24 13:23
Last Documented Vital Signs
Temp Pulse Resp BP Pulse Ox
98.6 F 72 16 130/82 98
04/15/24 13:23 04/15/24 19:06 04/15/24 19:06 04/15/24 19:06 04/15/24 19:06
<AVINASH Marte - Last Filed: 04/15/24 23:30>
MDM/Problems Addressed
MDM/Problems Addressed:
Symptoms are likely muscular. Patient complains of pain to the left rib area is mildly tender on palpation worse in movement taking a deep breath however he is not short of breath. He has not tachypneic he is afebrile his white count very
minimally elevated no nausea vomiting diarrhea. No back pain. Normal chemistries including normal LFTs and normal lipase. Patient's status post bypass surgery in February.
Case reviewed with ED physician who eval pt.
CT PE study was ordered and negative. Patient was given Tylenol here feeling better no acute distress well-appearing likely muscular stable for discharge home.
Chronic conditions affecting care:
Cardiac disease [place] recent bypass in February
<AVINASH Marte - Last Filed: 04/15/24 23:30>
*Radiology
Radiology exam reviewed: radiology read reviewed
*Pulse Oximetry
Patient hypoxic: no
*EKG
Interpreted by ED Provider?: Yes
Heart Rate: 67
Rate: normal
Rhythm: sinus
Ischemia: non-specific ST changes
*Critical Care Note
Total Time (30-74mins, 75-104mins- exclusive of procedures): Not Applicable
Data Reviewed
Review of Other/Old Records Reveals: Radiology Studies, Discharge Summary and Other
ED Attending Note
<AVINASH Marte - Last Filed: 04/15/24 23:30>
-
Portions of this chart may have been created with voice recognition software.� Occasional wrong word or��sound alike� substitutions may have occurred due to the inherent limitations of voice recognition software.
<Onur Hollingsworth DO - Last Filed: 04/15/24 15:46>
ED Attending Note
Patient seen and examined by attending physician: Yes
I performed the substantive portion of visit, reviewed & personally made and approve the management plan that is documented in note by myself or ART.: Yes
ED Attending Note:
I agree with Glenis's note
Patient presents with sudden onset of left lower thoracic pain. Pain is worse with deep inspiration and certain movements. Patient was sitting watching TV when the pain started last evening. He does not feel short of breath. He ate normally this
morning. Denies any diarrhea or constipation. He denies any urinary symptoms.
General: Awake, Alert, Oriented X3. No acute distress.
Vitals: unremarkable
Head: Atraumatic
Eyes: Pupils equal, EOMI
Chest: Reproducible tenderness palpation to the lower thorax over the 10th 11th 12th rib region.
Lungs: Clear and equal b/l
Heart: Regular rate, no murmurs
Abd: Soft, Nontender, No pulsatile mass
Neuro: Nonfocal
Skin: Warm, dry, no rash
Extremities: pulses equal b/l, no edema
Given the patient has no reproducible abdominal pain I think it is very unlikely this discomfort is from an intra-abdominal source. Could be musculoskeletal versus pleuritic. Will get a CT to rule out PE.
Discharge Plan
Departure
Patient Disposition: Home (Routine Discharge)
Date of Disposition: 04/15/24
Time of Disposition: 19:03
Patient with high blood pressure during this ER visit?: Yes
Condition: Fair
Covid-19: Not Applicable
Discharge Problem:
Pain in rib
Instructions: Muscle, joint, and bone pain - Discharge instructions, BLOOD PRESSURE
Prescriptions:
No Action
folic acid 400 mcg Tablet
0.4 mg PO DAILY
ezetimibe 10 mg Tablet
10 mg PO DAILY
rosuvastatin 40 mg Tablet
40 mg PO DAILY
cholecalciferol (vitamin D3) [Vitamin D3] 50 mcg (2,000 unit) Tablet
50 mcg PO DAILY
nitroglycerin 0.4 mg tablet, sublingual
0.4 mg sublingual [id number] PRN (Reason: chest pain) Qty: 25 2RF
Patient Comments:
Has not taken this medication
vitamin Q44-[id number] factor
3,000 mcg PO DAILY
cyclobenzaprine 10 mg Tablet
5 mg PO Q8HPRN PRN (Reason: muscle spasm) Qty: 30 0RF
clopidogrel 75 mg Tablet
75 mg PO DAILY Qty: 30 0RF
acetaminophen 325 mg Tablet
650 mg PO Q4HPRN PRN (Reason: mild pain,headache,temp >101F ) Qty: 0 0RF
gabapentin 100 mg Capsule
100 mg PO TID Qty: 30 0RF
amiodarone 200 mg tablet
200 mg PO DAILY Qty: 60 0RF
potassium chloride 10 mEq tablet extended release
10 meq PO DAILY Qty: 7 0RF
lisinopril 2.5 mg tablet
2.5 mg PO DAILY Qty: 30 0RF
metoprolol tartrate 50 mg tablet
50 mg PO BID Qty: 60 2RF
furosemide [Lasix] 20 mg tablet
20 mg PO DAILY Qty: 7 0RF
Rx Instructions:
Take daily for 7 days, then stop
Patient's Own Insulin Pump
1 sliding scale dose SC AC
Patient Comments:
02/09/24: uses insulin aspart
To d/c carpentry professional to OR
aspirin 81 mg Capsule
81 mg
Referrals:
Sue Burkett CRNP [Family Provider] -
Activity Restrictions/Additional Instructions:
As discussed your CAT scan was negative for blood clot. Symptoms are likely muscular. You may take Tylenol for discomfort.
Follow-up with family doctor in the next several days for reevaluation .
return if any worsening of symptoms
Interventions
Interventions:
*Risk Screen - Suicide Last Done: 04/15/24 13:23
*General Assessment Last Done: 04/15/24 13:23
*Neglect/Abuse Screening Last Done: 04/15/24 13:23
*Nursing Disposition Last Done: 04/15/24 19:13
IX-Xlyslb-Glbzpbrbxt Assessment Last Done: 04/15/24 15:42
Discharge Date and Time
Discharge Date/Time: 04/15/24 19:13
Print Language: LAO
[2024-04-15 16:35] LABS: % Basophils 0.4 % (0-2); % Eosinophils 0.7 % (0-6); % Immature Granulocytes 0.6 % (0-0.5); % Lymphocytes 9.2 % (20.5-51.1); % Monocytes 11.9 % (1.7-9.3); % Neutrophils 77.2 % (42.2-75.2); Absolute Eosinophils 0.1 10^3/uL (0-0.7); Absolute Immature Granulocytes 0.1 10^3/uL (0-0.05); Absolute Monocytes 1.3 10^3/uL (0.1-0.6); Absolute Neutrophils 8.7 10^3/uL (1.4-6.5); Hemoglobin 13.3 g/dL (13.0-18.0); Mean Corp Hgb Conc. 32.4 g/dL (33.0-37.0); Mean Corpuscular Hgb 30.1 pg (27.0-31.0); Mean Corpuscular Volume 92.8 fL (80.0-94.0); Mean Platelet Volume 9.1 fL (7.4-10.4); Nucleated Red Blood Cells % 0 % (-); Platelet Count 293 10^3/uL (130-400); Red Blood Cell Count 4.42 10^6/uL (4.70-6.10); Red Cell Dist. Width 13.4 % (11.5-14.5); White Blood Cell Count 11.3 10^3/uL (4.8-10.8)
[2024-04-15 16:46] LABS: ALT (SGPT) 35 U/L (0-50); AST (SGOT) 28 U/L (17-59); Albumin 4.7 g/dl (3.5-5.0); Alkaline Phosphatase 82 U/L (38-126); Blood Urea Nitrogen 11 mg/dl (9-20); Calcium 9.2 mg/dl (8.4-10.2); Carbon Dioxide 28 mmol/L (22-30); Chloride 101 mmol/L (98-107); Glucose 132 mg/dl (70-99); Potassium 4.5 mmol/L (3.5-5.1); Sodium 139 mmol/L (135-145); Total Bilirubin 1.1 mg/dl (0.2-1.3); Total Protein 7.6 g/dl (6.3-8.2); eGFR > 60.00
[2024-04-15 16:47] LABS: Lipase 32 U/L (23-300)
[2024-04-15] MEDS: TYLENOL 1000 MG PO (18:46)
[2024-04-15 19:06] VITALS: BP 130/82
== END 2024-04-15 19:13 | disposition home or self-care (01) ==
LOC: EMR 13:11
PROVIDERS: EMERGENCY PHYSICIAN Emergency Medicine; FAMILY PHYSICIAN Nurse Practitioner
DX: R07.81 Pleurodynia (principal); I25.10 Atherosclerotic heart disease of native coronary artery without angina pectoris; I10 Essential (primary) hypertension; E78.00 Pure hypercholesterolemia, unspecified; E11.9 Type 2 diabetes mellitus without complications; I25.2 Old myocardial infarction; Z79.82 Long term (current) use of aspirin; Z79.4 Long term (current) use of insulin; Z95.1 Presence of aortocoronary bypass graft
CPT/HCPCS: 99284; 71275; 80053; 81003; 81015; 83690; 85025; 93005; Q9967

== ENCOUNTER 2024-05-13 09:30 | Outpatient (RCR) | payer BC, SELFPAY | END 2024-05-13 23:59 | disposition home or self-care (01) | LOC: CRHB 09:30 | PROVIDERS: ATTENDING PHYSICIAN Internal Medicine Cardiovascular Disease | DX: Z95.1 Presence of aortocoronary bypass graft (principal); I25.10 Atherosclerotic heart disease of native coronary artery without angina pectoris | CPT/HCPCS: 93797; 93798 ==